=== PATIENT | male | born 1955 | race Caucasian/White ===

== ENCOUNTER → 2016-10-05 | Outpatient (CLI) | payer OTHER ==
[2016-10-05 11:08] LABS: ALT 39 U/L (21-72); AST 21 U/L (17-59); Alkaline Phosphatase 95 U/L (38-126); Anion Gap 11 mmol/L; Blood Urea Nitrogen 21 mg/dL (9-20); Calcium 9.2 mg/dL (8.4-10.2); Carbon Dioxide 26 mmol/L (22-30); Chloride 104 mmol/L (98-107); Cholesterol 167 mg/dL (<200); Glucose 266 mg/dL (74-99); HDL Cholesterol 64 mg/dL (40-60); Non-African American GFR(MDRD) >60 (>60 ml/min/1.73 sqM); Potassium 4.9 mmol/L (3.5-5.1); Sodium 141 mmol/L (137-145); Total Bilirubin 0.7 mg/dL (0.2-1.3); Total Protein 7.9 g/dL (6.3-8.2); Triglycerides 107 mg/dL (<150)
== END | disposition home or self-care (01) ==
LOC: LABWHC1 10:27
PROVIDERS: ATTEND Internal Medicine Endocrinology, Diabetes & Metabolism
DX: E11.65 Type 2 diabetes mellitus with hyperglycemia (principal)
CPT/HCPCS: 36415; 80053; 80061; 82043

== ENCOUNTER → 2017-01-07 | Outpatient (CLI) | payer OTHER ==
--- NOTE | 2017-01-08 12:48 | US ---
EXAMINATION TYPE: US MSK right shoulder DATE OF EXAM: 01/07/2017 1:37 PM COMPARISON: No radiographic correlation available. CLINICAL HISTORY: 61-year-old male strain or muscle/tendon rotator cuff. Patient is a former requirin g strenuous manual labor. Patient reports markedly worsening right shoulder pain over the course of t he last 3 weeks. TECHNIQUE: Multiple sonographic images of the right shoulder are obtained. FINDINGS: Unable to visualize the long head biceps tendon within the bicipital groove. The subscapularis tendon appears somewhat attenuated but some fibers are noted extending to the lesse r tuberosity when the patient performs internal and external rotation. The tendon appears hypoechoic suggesting tendinosis. There is moderate to severe degenerative joint space narrowing with marginal spurring and capsular hy pertrophy at the acromioclavicular joint. Limited evaluation of the supraspinatus tendon due to patient's pain limiting the ability to perform a satisfactory modified Crass position to bring the supraspinatus out from under the acromion. There appears to be considerable volume loss of the mid to posterior supraspinatus tendon with possib le full-thickness tear measuring up to 1.8 cm long and up to 1.4 cm AP dimension. No significant fluid distention of the subacromial/subdeltoid bursa. No significant joint effusion within the posterior recess of the glenoid humeral joint. The posterior labrum appears somewhat blunted and degenerative. IMPRESSION: 1. Unable to visualize the long head biceps tendon within the bicipital groove. Tendon tear should be excluded. MRI to further evaluate. 2. Suboptimal visualization of the supraspinatus tendon due to patient's pain limiting performance of the modified Crass position. There is apparent focal volume loss measuring 1.8 cm long by 1.4 cm AP along the mid to posterior supraspinatus tendon suspicious for full-thickness tear. MRI can corrobora te. 3. Moderate to severe AC joint osteoarthrosis.
== END | disposition home or self-care (01) ==
LOC: RADUSWWP 11:57
PROVIDERS: ATTEND Family Medicine
DX: M19.011 Primary osteoarthritis, right shoulder (principal); S46.011D Strain of muscle(s) and tendon(s) of the rotator cuff of right shoulder, subsequent encounter; X58.XXXD Exposure to other specified factors, subsequent encounter

== ENCOUNTER → 2017-01-25 | Outpatient (CLI) | payer OTHER ==
--- NOTE | 2017-01-25 21:43 | MR ---
EXAMINATION TYPE: MR shoulder RT wo con DATE OF EXAM: 01/25/2017 9:00 AM COMPARISON: Correlation ultrasound 01/07/2017 HISTORY: 61-year-old male with right shoulder pain. TECHNIQUE: Multiplanar, multisequence imaging of the right shoulder is performed without contrast. FINDINGS: There is nonvisualization of the long head biceps tendon suggesting a retracted tear. No dislocated b iceps tendon is seen. The subscapularis tendon is markedly diminutive with some was the fibers. Some of the inferior fibers appear to be intact. There is moderate to severe degenerative joint space narrowing with marginal spurring and capsular hy pertrophy at the acromial clavicular joint. Prominent inferior spurring impinges onto the underlying myotendinous junction of the supraspinatus. There is a full-thickness tear involving nearly all of the supraspinatus tendon measuring 2.3 cm AP d imension with stump retracted by 2.5 cm located below the acromion. There is heterogeneous signal wit hin the infraspinatus tendon without discrete tear. There is fluid within the intervening tendon gap communicating with the glenohumeral joint. There is mild to moderate fatty infiltration of the superior half of the subscapularis muscle belly. Only minimal fatty streaks are seen within the supraspinatus and infraspinatus muscle belly with over all preserved muscle bulk. There is minimal inferior spurring at the glenohumeral joint with mild diffuse cartilage thinning. There is diffuse tear of the superior labrum without paravertebral cyst. The posterior labrum is blun maxwell and degenerative. There is [id number] effusion within the glenohumeral joint. No Hill-Sachs deformity or os acromiale. No suspicious bone marrow replacement. IMPRESSION: 1. Full-thickness tear of nearly the entire supraspinatus tendon (2.3 cm AP dimension) with stump ret racted by 2.5 cm located below the acromion. 2. Most of the subscapularis tendon is also torn with some wispy intact fibers, especially the inferi or fibers. 3. Nonvisualization of the long head biceps tendon. As no dislocated tendon is seen, findings sugges t a retracted tear. 4. Moderate to severe AC joint osteoarthrosis with impingement onto the underlying cuff. 5. Mild to moderate fatty infiltration of the superior half of the subscapularis muscle belly. 6. Early glenohumeral joint osteoarthrosis. The superior labrum is diffusely degenerative and torn.
== END | disposition home or self-care (01) ==
LOC: RADMRIMAIN 08:10
PROVIDERS: ATTEND Nurse Practitioner Family
DX: S46.011D Strain of muscle(s) and tendon(s) of the rotator cuff of right shoulder, subsequent encounter (principal); S43.431A Superior glenoid labrum lesion of right shoulder, initial encounter; M19.011 Primary osteoarthritis, right shoulder; M62.89 Other specified disorders of muscle

== ENCOUNTER 2017-08-30 18:03 | Observation (INO) | payer OTHER ==
[2017-08-30] MEDS ORDERED: SODIUM CHLORIDE 0.9% 1,000 ML IV STA (19:19)
[2017-08-30 19:44] LABS: Basophils % (A) 0 %; CH 28.8; CHCM 33.2; Eosinophils # (A) 0.1 k/uL (0-0.7); Eosinophils % (A) 2 %; HCT 45.6 % (39.0-53.0); HDW 2.33; HGB 14.6 gm/dL (13.0-17.5); Luc # (Auto) 0.18; Luc % (Auto) 3; Lymphocytes # (A) 1.5 k/uL (1.0-4.8); Lymphocytes % (A) 25 %; MCH 27.8 pg (25.0-35.0); MCHC 31.9 g/dL (31.0-37.0); MCV 87.1 fL (80.0-100.0); Mean Platelet Volume 8.2; Monocytes # (A) 0.3 k/uL (0-1.0); Monocytes % (A) 5 %; Neutrophils # (A) 3.8 k/uL (1.3-7.7); Neutrophils % (A) 65 %; RBC 5.23 m/uL (4.30-5.90); RDW 13.1 % (11.5-15.5); WBC 5.9 k/uL (3.8-10.6); WBC (Perox) 5.48
[2017-08-30 19:46] LABS: Partial Thromboplastin Time 24.2 sec (22.0-30.0)
[2017-08-30 19:56] LABS: ALT 41 U/L (21-72); AST 31 U/L (17-59); Alkaline Phosphatase 75 U/L (38-126); Anion Gap 14 mmol/L; Blood Urea Nitrogen 20 mg/dL (9-20); Calcium 9.9 mg/dL (8.4-10.2); Carbon Dioxide 25 mmol/L (22-30); Chloride 102 mmol/L (98-107); Glucose 172 mg/dL (74-99); Non-African American GFR(MDRD) >60 (>60 ml/min/1.73 sqM); Potassium 4.5 mmol/L (3.5-5.1); Sodium 141 mmol/L (137-145); Total Bilirubin 0.5 mg/dL (0.2-1.3); Total Protein 7.9 g/dL (6.3-8.2)
[2017-08-30 20:04] LABS: Creatine Kinase 477 U/L (55-170)
--- NOTE | 2017-08-30 20:07 | CT ---
EXAMINATION: CT brain wo con DATE AND TIME: 08/30/2017 7:53 PM ORDERING PROVIDER: Juanpablo Mak DO CLINICAL INDICATION: syncope TECHNIQUE: Standard departmental protocol. COMPARISON: 08/20/2014 DESCRIPTION: There is a region of encephalomalacia within the posterior right frontal lobe which was seen on the prior study, consistent with remote right MCA territory infarction. This has similar appe arance. The calvarium is intact. There is no intracranial hemorrhage. There is no mass or mass effect. There is no definite new attenuation defect. Remainder of the intra-axial and extra-axial compartment exami nation is unremarkable. The paranasal sinuses, middle ear cavities, and mastoid sinus air cells are c lear. The orbits are intact. IMPRESSION: 1. NO ACUTE PROCESS. 2. Right MCA territory remote infarction.
[2017-08-30 20:16] LABS: Troponin I <0.012 ng/mL (0.000-0.034)
[2017-08-30 20:18] LABS: Creatine Kinase MB 3.4 ng/mL (0.0-2.4)
--- NOTE | 2017-08-30 20:25 | XR ---
EXAMINATION: XR chest 2V DATE AND TIME: 08/30/2017 7:58 PM ORDERING PROVIDER: Juanpablo Mak DO CLINICAL INDICATION: syncope TECHNIQUE: AP and lateral COMPARISON: 07/14/2007 DESCRIPTION: EKG leads are present. The lungs are clear. The pleural spaces are negative. The cardiac silhouette is not enlarged. Mild tortuosity of the thoracic aorta is noted, stable. The skeletal structures are intact without focal findings. The soft tissues are unremarkable. IMPRESSION: NO ACUTE PROCESS.
[2017-08-30] MEDS ORDERED: NALOXONE 0.4 MG/ML 1 ML VIAL IV PRN (20:55)
[2017-08-30] MEDS ORDERED: ONDANSETRON 4 MG/2 ML VIAL IVP PRN (20:55)
[2017-08-30] MEDS ORDERED: Acetaminophen-Codeine 300-30mg TAB PO PRN (20:55)
[2017-08-30] MEDS ORDERED: ACETAMINOPHEN TAB 325 MG TAB PO PRN (20:55)
--- NOTE | 2017-08-30 20:55 | ED ---
Syncope HPI - General Chief Complaint: Syncope Stated Complaint: SYNCOPE Time Seen by Provider: 08/30/17 19:14 Source: patient Mode of arrival: wheelchair Limitations: no limitations - History of Present Illness Initial Comments: This 62-year-old white male presents with a complaint of syncope. He states that it occurred yesterday once and twice today. He fell yesterday and hit his left head. He states that it occurred when he was getting out of his truck on 2 occasions. He is still having a left-sided headache today. He states that he 's been somewhat dizzy recently as well. He denies any other injuries. There is no chest pain, shortness of breath, nausea, vomiting, abdominal pain, leg pain, leg swelling, fever, or chills. He denies any previous known episodes. No other complaints or modifying factors. - Related Data Home Medications Medication Instructions Recorded Confirmed Aspirin 325 mg PO HS 08/20/14 08/30/17 Cholecalciferol [Vitamin D3] 2,000 unit PO DAILY 08/20/14 08/30/17 Pregabalin [Lyrica] 400 mg PO QAM 08/20/14 08/30/17 Tamsulosin [Flomax] 0.4 mg PO DAILY 08/20/14 08/30/17 Ubidecarenone [Co Q-10] 200 mg PO DAILY 08/20/14 08/30/17 Losartan [Cozaar] 25 mg PO HS 10/08/15 08/30/17 Pregabalin [Lyrica] 200 mg PO HS 05/01/16 08/30/17 DULoxetine HCL [Cymbalta] 30 mg PO DAILY 07/14/17 08/30/17 Dapagliflozin Propanediol [Farxiga] 10 mg PO HS 07/14/17 08/30/17 Insulin Aspart [NovoLOG] 10 unit SQ AC-SUPPER 07/14/17 08/30/17 Insulin Glargine,Hum.rec.anlog 50 units SQ HS 07/14/17 08/30/17 [Kain Brady] PARoxetine [Paxil] 20 mg PO DAILY 07/14/17 08/30/17 metFORMIN HCL 1,000 mg PO BID 07/14/17 08/30/17 Simvastatin [Zocor] 20 mg PO HS 08/30/17 08/30/17 glipiZIDE [Glucotrol] 5 mg PO AC-BID 08/30/17 08/30/17 Allergies Allergy/AdvReac Type Severity Reaction Status Date / Time cephalexin monohydrate AdvReac Vomiting Verified 08/30/17 19:15 [From Keflex] venlafaxine [From Effexor] AdvReac Rapid Verified 08/30/17 19:15 Heart Rate Review of Systems ROS Statement: Those systems with pertinent positive or pertinent negative responses have been documented in the HPI. ROS Other: All systems not noted in ROS Statement are negative. Past Medical History Past Medical History: CVA/TIA, Diabetes Mellitus, Hyperlipidemia, Hypertension Additional Past Medical History / Comment(s): bph History of Any Multi-Drug Resistant Organisms: None Reported Past Surgical History: No Surgical Hx Reported Additional Past Surgical History / Comment(s): right endarderectomy Past Psychological History: Anxiety Smoking Status: Never smoker Past Alcohol Use History: Occasional Past Drug Use History: None Reported General Exam - General Exam Comments Initial Comments: GENERAL: The patient is well nourished and well hydrated. VITAL SIGNS: Heart rate, blood pressure, respiratory rate reviewed as recorded in nurse's notes. EYES: Pupils are round and reactive. Extraocular movements are intact. No conjunctival / lid redness or swelling. ENT: No external evidence of injury, swelling, or ecchymosis. Airway is patent. Throat is clear. There is mild tenderness present to the left scalp without hematoma. NECK: Nontender. No swelling or evidence of injury. No subcutaneous emphysema. Trachea is midline. No thyroid mass. HEART: Regular rate and rhythm. Good peripheral pulses. LUNGS/CHEST: Breath sounds clear and equal bilaterally. No rales, rhonchi, or wheezes. No ecchymosis, subcutaneous emphysema, or tenderness. ABDOMEN: Abdomen soft without tenderness. No palpable masses or organomegaly. No peritoneal signs. No abdominal wall swelling or ecchymosis. EXTREMITIES: No extremity tenderness. Normal muscle tone and function. No thoracolumbar tenderness. NEUROLOGIC: Sensation is grossly intact. Cranial nerve exam reveals face is symmetrical, tongue is midline, speech is clear. SKIN: No abrasions or ecchymosis is noted. No induration or masses noted. PSYCHIATRIC: Alert and oriented. Appropriate behavior and judgment. Limitations: no limitations Course Vital Signs 08/30/17 08/30/17 08/30/17 18:34 19:09 19:31 Temperature 98.5 F Pulse Rate 79 71 Pulse Rate [ 65 Sitting] Pulse Rate [ 69 Standing] Pulse Rate [ 70 Supine] Respiratory 18 17 Rate Blood Pressure 118/59 138/74 Blood Pressure 133/71 [Sitting] Blood Pressure 132/69 [Standing] Blood Pressure 134/71 [Supine] O2 Sat by Pulse 97 96 100 Oximetry 08/30/17 20:20 Temperature Pulse Rate 61 Pulse Rate [ Sitting] Pulse Rate [ Standing] Pulse Rate [ Supine] Respiratory 18 Rate Blood Pressure 137/68 Blood Pressure [Sitting] Blood Pressure [Standing] Blood Pressure [Supine] O2 Sat by Pulse 98 Oximetry Medical Decision Making - Medical Decision Making The patient was seen and examined. All diagnostics were reviewed. The patient was placed on a case monitor and no ectopy is identified. The EKG shows a normal sinus rhythm at a rate of 70. There is no acute ST-T wave changes noted. The MO interval is 204, QRS duration is 98, and the QTc interval is 414. The patient had a chest x-ray which is negative. The computed tomography scan of the brain does not show any acute process with evidence of an old CVA. The orthostatic vital signs are negative. The laboratories all essentially within normal limits with slight elevation of the CPK and CK-MB. The exact cause of his syncope is not definitively determined. The possibility of bradycardia or tachyarrhythmia is certainly possible. Is felt as though he benefit from admission to the hospital with further workup. Case is discussed with internal medicine and they're agreeable with admission and would like an echocardiogram, carotid Dopplers, and a cardiology consult. - Lab Data Result diagrams: 08/30/17 19:02 08/30/17 19:02 Lab Results 08/30/17 08/30/17 08/30/17 Range/Units 19:02 19:02 19:02 WBC 5.9 (3.8-10.6) k/uL RBC 5.23 (4.30-5.90) m/uL Hgb 14.6 (13.0-17.5) gm/dL Hct 45.6 (39.0-53.0) % MCV 87.1 (80.0-100.0) fL MCH 27.8 (25.0-35.0) pg MCHC 31.9 (31.0-37.0) g/dL RDW 13.1 (11.5-15.5) % Plt Count 178 (150-450) k/uL Neutrophils % 65 % Lymphocytes % 25 % Monocytes % 5 % Eosinophils % 2 % Basophils % 0 % Neutrophils # 3.8 (1.3-7.7) k/uL Lymphocytes # 1.5 (1.0-4.8) k/uL Monocytes # 0.3 (0-1.0) k/uL Eosinophils # 0.1 (0-0.7) k/uL Basophils # 0.0 (0-0.2) k/uL PT (9.0-12.0) sec INR (<1.2) APTT (22.0-30.0) sec Sodium 141 (137-145) mmol/L Potassium 4.5 (3.5-5.1) mmol/L Chloride 102 (98-107) mmol/L Carbon Dioxide 25 (22-30) mmol/L Anion Gap 14 mmol/L BUN 20 (9-20) mg/dL Creatinine 0.90 (0.66-1.25) mg/dL Est GFR (MDRD) Af Amer >60 (>60 ml/min/1.73 sqM) Est GFR (MDRD) Non-Af >60 (>60 ml/min/1.73 sqM) Glucose 172 H (74-99) mg/dL Calcium 9.9 (8.4-10.2) mg/dL Total Bilirubin 0.5 (0.2-1.3) mg/dL AST 31 (17-59) U/L ALT 41 (21-72) U/L Alkaline Phosphatase 75 (38-126) U/L Total Creatine Kinase 477 H (55-170) U/L CK-MB (CK-2) 3.4 H* (0.0-2.4) ng/mL CK-MB (CK-2) Rel Index 0.7 Troponin I <0.012 (0.000-0.034) ng/mL Total Protein 7.9 (6.3-8.2) g/dL Albumin 4.9 (3.5-5.0) g/dL 08/30/ Range/Units 19:02 WBC (3.8-10.6) k/uL RBC (4.30-5.90) m/uL Hgb (13.0-17.5) gm/dL Hct (39.0-53.0) % MCV (80.0-100.0) fL MCH (25.0-35.0) pg MCHC (31.0-37.0) g/dL RDW (11.5-15.5) % Plt Count (150-450) k/uL Neutrophils % % Lymphocytes % % Monocytes % % Eosinophils % % Basophils % % Neutrophils # (1.3-7.7) k/uL Lymphocytes # (1.0-4.8) k/uL Monocytes # (0-1.0) k/uL Eosinophils # (0-0.7) k/uL Basophils # (0-0.2) k/uL PT 10.0 (9.0-12.0) sec INR 1.0 (<1.2) APTT 24.2 (22.0-30.0) sec Sodium (137-145) mmol/L Potassium (3.5-5.1) mmol/L Chloride (98-107) mmol/L Carbon Dioxide (22-30) mmol/L Anion Gap mmol/L BUN (9-20) mg/dL Creatinine (0.66-1.25) mg/dL Est GFR (MDRD) Af Amer (>60 ml/min/1.73 sqM) Est GFR (MDRD) Non-Af (>60 ml/min/1.73 sqM) Glucose (74-99) mg/dL Calcium (8.4-10.2) mg/dL Total Bilirubin (0.2-1.3) mg/dL AST (17-59) U/L ALT (21-72) U/L Alkaline Phosphatase (38-126) U/L Total Creatine Kinase (55-170) U/L CK-MB (CK-2) (0.0-2.4) ng/mL CK-MB (CK-2) Rel Index Troponin I (0.000-0.034) ng/mL Total Protein (6.3-8.2) g/dL Albumin (3.5-5.0) g/dL Disposition Clinical Impression: Syncopal episodes, Head injury, Fall, Dizziness Disposition: ADMITTED IP TO THIS [facility] Condition: Fair Time of Disposition: 20:53 Decision Date: 08/30/17 Decision Time: 20:53
[2017-08-30] MEDS ORDERED: ATORVASTATIN 10 MG TAB PO SCH (21:00)
[2017-08-30] MEDS ORDERED: LOSARTAN 25 MG TAB PO SCH (21:00)
[2017-08-30] MEDS ORDERED: ASPIRIN 325 MG TAB PO SCH (21:00)
[2017-08-30] MEDS ORDERED: PREGABALIN 100 MG CAP PO SCH (21:30)
[2017-08-30] MEDS ORDERED: INSULIN DETEMIR 100 UNIT/ML 10 ML VIAL SQ SCH (22:00)
[2017-08-30 22:10] LABS: Glucose,Whole Blood 104 mg/dL (75-99)
[2017-08-30] MEDS: metFORMIN 500 MG TAB PO SCH (22:24)
[2017-08-31 00:25] VITALS: RESP 18
[2017-08-31 01:02] LABS: Creatine Kinase 349 U/L (55-170)
[2017-08-31 01:15] LABS: Troponin I <0.012 ng/mL (0.000-0.034)
[2017-08-31 01:17] LABS: Creatine Kinase MB 2.5 ng/mL (0.0-2.4)
[2017-08-31 06:14] LABS: Glucose,Whole Blood 82 mg/dL (75-99)
[2017-08-31 07:08] LABS: Creatine Kinase 305 U/L (55-170)
[2017-08-31 07:22] LABS: Creatine Kinase MB 2.2 ng/mL (0.0-2.4); Troponin I <0.012 ng/mL (0.000-0.034)
[2017-08-31] MEDS: glipiZIDE 5 MG TAB PO SCH ×2 (08:15→17:52)
[2017-08-31] MEDS: metFORMIN 500 MG TAB PO SCH (08:17)
[2017-08-31] MEDS ORDERED: PARoxetine 20 MG TAB PO SCH (09:00)
[2017-08-31] MEDS ORDERED: TAMSULOSIN 0.4 MG CAP.ER.24H PO SCH (09:00)
[2017-08-31] MEDS ORDERED: NON-FORMULARY DRUG (Ubidecarenone [Co Q-10] 200 MG) PO SCH (09:00)
[2017-08-31] MEDS ORDERED: DULoxetine HCL 30 MG CAPSULE.DR PO SCH (09:00)
[2017-08-31] MEDS ORDERED: PREGABALIN 100 MG CAP PO SCH (09:00)
[2017-08-31] MEDS ORDERED: PANTOPRAZOLE 40 MG/10 ML VIAL IV SCH (09:00)
[2017-08-31] MEDS ORDERED: ENOXAPARIN 40 MG/0.4 ML SYRINGE SQ SCH (09:00)
--- NOTE | 2017-08-31 09:26 | CONS ---
CONSULTATION CHIEF COMPLAINT: Syncope. Aldne is a 62-year-old gentleman with history of insulin-requiring diabetes, peripheral neuropathy, hypertension, and dyslipidemia who comes in complaining of having had an episode of syncope. Patient states that for the last several months he has been having episodes of dizziness and near syncope and it usually happens when he gets up from a sitting position. Most recently, it happened when he got out of the car, stood up, he felt dizzy and then passed out. It was moderate to severe intensity, sudden onset with the precipitating factor was standing up and it was relieved on lying down. Since he has had several of these episodes, he came to the hospital and got admitted. Since being admitted to hospital, he has been doing well and has not had any further episodes of dizziness or syncope. He also had episodes of headache. There is no history of focal neurological deficits. There is no history of bladder or bowel incontinence. Since admission, he has had 3 sets of cardiac enzymes that have all been negative. His electrolytes are normal and hemoglobin is normal. EKG shows normal sinus rhythm. Rhythm strip showed that he is in normal sinus rhythm. His blood pressures have been normal on this admission and orthostatics are negative. PAST MEDICAL HISTORY: Significant for insulin-requiring diabetes, hypertension, dyslipidemia, peripheral neuropathy. CURRENT MEDICATIONS: Include Zocor 20 mg daily, Lyrica 200 mg daily, Paxil, Cozaar, insulin, Co-Q10, Glucotrol, Flomax, Cymbalta, aspirin. Allergic to KEFLEX and EFFEXOR. FAMILY HISTORY: Significant for premature coronary artery disease in his mother. SOCIAL HISTORY: Negative for smoking, EtOH abuse, or drug abuse. REVIEW OF SYSTEMS: HEENT is unremarkable. CARDIAC: Negative. RESPIRATORY: Negative. GI: Negative. GENITOURINARY: Negative. ALLERGY: Negative. SKIN: Negative. MUSCULOSKELETAL: Negative. DERM: Negative. CONSTITUTIONAL: Negative. ONCOLOGICAL: Negative. Rest of the system review is not relevant. PHYSICAL EXAM: Comfortable at rest. Vital signs are stable. There is no jugular venous distention. Carotid upstroke is normal. There is no bruit. Chest exam reveals good air entry bilaterally. Heart exam reveals first and second heart sounds. No gallop. No murmur. No rub. Abdomen is soft, nontender. Exam of extremities did not reveal edema. Peripheral pulses are felt. Orthostatics are negative. Labs have been reviewed and are normal. EKG is normal. CT scan of the brain does not reveal any acute pathology. Has a prior small infarction in the middle cerebral artery, which was noted on a prior CAT scan. ASSESSMENT: 1. Syncope, probably vasovagal in origin. The patient's peripheral neuropathy, diabetes, and multiple antihypertensive medications could be worsening the situation. 2. Hypertension. 3. Insulin-requiring diabetes. 4. Peripheral neuropathy. PLAN: I am going to obtain a 2D echo and carotid duplex study on him, ambulate him and hold the Cozaar that he is on this admission and will follow him up as outpatient and if necessary add midodrine to what he is on. I will consider doing a stress test on him on followup. YENNY / MADDIN: [id number] /
--- NOTE | 2017-08-31 11:03 | US ---
EXAMINATION TYPE: US carotid duplex BILAT DATE OF EXAM: 08/31/2017 COMPARISON: NONE CLINICAL HISTORY: syncope, right endartectomy. EXAM MEASUREMENTS: RIGHT: Peak Systolic Velocity (PSV) cm/sec ----- Right CCA: 82.7 ----- Right ICA: 78.7 ----- Right ECA: 111.0 ICA/CCA ratio: 1.0 RIGHT: End Diastole cm/sec ----- Right CCA: 20.2 ----- Right ICA: 27.0 ----- Right ECA: 13.1 LEFT: Peak Systolic Velocity (PSV) cm/sec ----- Left CCA: 77.1 ----- Left ICA: 87.8 ----- Left ECA: 102.5 ICA/CCA ratio: 1.0 LEFT: End Diastole cm/sec ----- Left CCA: 22.8 ----- Left ICA: 25.0 ----- Left ECA: 7.0 VERTEBRALS (direction of flow): Right Vertebral: Antegrade Left Vertebral: Antegrade Rhythm: Normal Patient has thick neck, no significant velocity elevations. IMPRESSION: No evidence for hemodynamically significant stenosis. Criteria for Assigning % of Stenosis / Diameter reduction (Estimation based on the indirect measurements of the internal carotid artery velocities (ICA PSV). 1. Normal (no stenosis)=ICA PSV < 125 cm/s: ratio < 2.0: ICA EDV<40 cm/s. 2. Less than 50% stenosis=ICA PSV < 125 cm/s: ratio < 2.0: ICA EDV<40 cm/s. 3. 50 to 69% stenosis=ICA PSV of 125 to 230 cm/s: ration 2.0 ? 4.0: ICA EDV 40-100 cm/s. 4. Greater than 70% stenosis to near occlusion= ICA PSV > 230 cm/s: ratio > 4.0: ICA EDV > 100 cm/s. 5. Near occlusion= ICA PSV velocities may be low or undetectable: variable ratio and ICA EDV. 6. Total occlusion=unable to detect flow.
[2017-08-31 11:55] LABS: Glucose,Whole Blood 103 mg/dL (75-99)
[2017-08-31] MEDS ORDERED: CHOLECALCIFEROL 1,000 UNIT TAB PO SCH (12:00)
--- NOTE | 2017-08-31 14:25 | ECHOF ---
Referral Reason:syncope MEASUREMENTS -------- HEIGHT: 162.6 cm WEIGHT: 98.4 kg BP: 133/73 RVIDd: 3.4 cm (< 3.3) IVSd: 1.2 cm (0.6 - 1.1) LVIDd: 4.4 cm (3.9 - 5.3) LVPWd: 0.9 cm (0.6 - 1.1) IVSs: 1.5 cm LVIDs: 3.0 cm LVPWs: 1.2 cm LA Diam: 4.3 cm (2.7 - 3.8) LAESV Index (A-L): 25.90 ml/m Ao Diam: 2.9 cm (2.0 - 3.7) AV Cusp: 1.8 cm (1.5 - 2.6) LA Diam: 4.1 cm (2.7 - 3.8) MV EXCURSION: 20.130 mm (> 18.000) MV EF SLOPE: 116 mm/s (70 - 150) EPSS: 0.3 cm MV E Vikas: 0.75 m/s MV DecT: 159 ms MV A Vikas: 0.89 m/s MV E/A Ratio: 0.84 RAP: 5.00 mmHg RVSP: 10.49 mmHg FINDINGS -------- Sinus rhythm. This was a technically adequate study. The left ventricular size is normal. There is mild concentric left ventricular hypertrophy. Overa ll left ventricular systolic function is normal with, an EF between 55 - 60 %. The right ventricle is normal in size. The left atrial size is normal. Normal LA size by volume 22+/-6 ml/m2. The right atrial size is normal. There is mild aortic valve sclerosis. Mild mitral annular calcification present. Mild mitral regurgitation is present. Mild tricuspid regurgitation present. There is no evidence of pulmonary hypertension. The right v entricular systolic pressure, as measured by Doppler, is 10.49mmHg. There is no pulmonic regurgitation present. The aortic root size is normal. There is no pericardial effusion. CONCLUSIONS -------- 1. The left ventricular size is normal. 2. There is mild concentric left ventricular hypertrophy. 3. There is mild aortic valve sclerosis. 4. Mild mitral annular calcification present. 5. Mild mitral regurgitation is present. 6. Mild tricuspid regurgitation present. 7. There is no evidence of pulmonary hypertension. 8. The right ventricular systolic pressure, as measured by Doppler, is 10.49mmHg. 9. There is no pulmonic regurgitation present. 10. The aortic root size is normal. 11. There is no pericardial effusion. CLUTCH OPERATOR: Ann Bowie RDCS
[2017-08-31 16:18] LABS: Glucose,Whole Blood 166 mg/dL (75-99)
[2017-08-31 17:21] VITALS: BP 124/65; PULSE 81; TEMP 98.1
[2017-08-31] MEDS ORDERED: INSULIN ASPART 100 UNIT/ML 1 ML 10 ML VIAL SQ SCH (17:30)
[2017-08-31] MEDS ORDERED: Dapagliflozin Propanediol [Farxiga] 10 MG PO SCH (21:00)
--- NOTE | 2017-09-01 00:17 | P.HPIM ---
History of Present Illness H&P Date: 08/31/17 Chief Complaint: Syncope This 62-year-old white male a known history of hypertension, BPH and multiple medical problems presents with a complaint of syncope. He states that it occurred yesterday once and twice today. He fell yesterday and hit his left head. He states that it occurred when he was getting out of his truck on 2 occasions. He states that he is having dizzy spells for the past 2 years but never lost his consciousness. He states that he's been somewhat dizzy recently as well. He denies any other injuries. There is no chest pain, shortness of breath, nausea, vomiting, abdominal pain, leg pain, leg swelling, fever, or chills. He denies any previous known episodes. No other complaints or modifying factors. 2-D echo showed normal ejection fraction and mild aortic sclerosis Carotid duplex showed no significant hemodynamic abnormality. CT head showed right MCA territory remote infarction. No acute process Chest x-ray showed no acute process EKG showed normal sinus rhythm troponin 3 negative Patient had history of right carotid endarterectomy and is on follow with Dr. Parks as an outpatient. Review of Systems Constitutional: Patient denies any fever or chills . No generalized weakness or weight loss. Abdomen: Patient denied nausea vomiting and diarrhea and abdominal pain. Cardiovascular: Patient denies any chest pain or short of breath no palpitations. Respiratory: patient denied any cough is from production. No shortness of breath Neurologic: Patient denied any numbness or tingling headache. Musculoskeletal: Patient denies any complaints of joint swelling or deformity. Skin: Negative Psychiatric: Negative Endocrine: No heat or cold intolerance. No recent weight gain. Genitourinary: No dysuria or hematuria. All other 14 point ROS negative except the above Past Medical History Past Medical History: CVA/TIA, Diabetes Mellitus, Hyperlipidemia, Hypertension, Prostate Disorder Additional Past Medical History / Comment(s): bph History of Any Multi-Drug Resistant Organisms: None Reported Past Surgical History: No Surgical Hx Reported Additional Past Surgical History / Comment(s): right endarderectomy Past Anesthesia/Blood Transfusion Reactions: No Reported Reaction Past Psychological History: Anxiety, Depression Smoking Status: Never smoker Past Alcohol Use History: Occasional Past Drug Use History: None Reported - Past Family History Father Family Medical History: Cancer Mother History Unknown: Yes Family Medical History: Congestive Heart Failure (CHF), COPD, Coronary Artery Disease (CAD), Diabetes Mellitus, Myocardial Infarction ([place]) Medications and Allergies Home Medications Medication Instructions Recorded Confirmed Type Aspirin 325 mg PO HS 08/20/14 08/30/17 History Cholecalciferol [Vitamin D3] 2,000 unit PO DAILY 08/20/14 08/30/17 History Pregabalin [Lyrica] 400 mg PO QAM 08/20/14 08/30/17 History Tamsulosin [Flomax] 0.4 mg PO DAILY 08/20/14 08/30/17 History Ubidecarenone [Co Q-10] 200 mg PO DAILY 08/20/14 08/30/17 History Pregabalin [Lyrica] 200 mg PO HS 05/01/16 08/30/17 History DULoxetine HCL [Cymbalta] 30 mg PO DAILY 07/14/17 08/30/17 History Dapagliflozin Propanediol [Farxiga] 10 mg PO HS 07/14/17 08/30/17 History Insulin Aspart [NovoLOG 10 unit SQ AC-SUPPER 07/14/17 08/30/17 History (formulary)] Insulin Glargine,Hum.rec.anlog 50 units SQ HS 07/14/17 08/30/17 History [Touarnol Solostar] PARoxetine [Paxil] 20 mg PO DAILY 07/14/17 08/30/17 History metFORMIN HCL 1,000 mg PO BID 07/14/17 08/30/17 History Simvastatin [Zocor] 20 mg PO HS 08/30/17 08/30/17 History glipiZIDE [Glucotrol] 5 mg PO AC-BID 08/30/17 08/30/17 History Allergies Allergy/AdvReac Type Severity Reaction Status Date / Time cephalexin monohydrate AdvReac Vomiting Verified 08/30/17 19:15 [From Keflex] venlafaxine [From Effexor] AdvReac Rapid Verified 08/30/17 19:15 Heart Rate Physical Exam Vitals: Vital Signs Temp Pulse Pulse Pulse Pulse Resp BP 08/31/17 08:00 98.1 F 75 18 08/31/17 04:00 97.8 F 65 18 08/31/17 00:00 97.8 F 61 18 08/30/17 21:19 97.8 F 61 16 08/30/17 20:20 61 18 137/68 08/30/17 19:31 65 69 70 08/30/17 19:09 71 17 138/74 08/30/17 18:34 98.5 F 79 18 118/59 BP BP BP Pulse Ox 08/31/17 08:00 116/68 95 08/31/17 04:00 133/73 08/31/17 00:00 117/71 98 08/30/17 21:19 117/71 98 08/30/17 20:20 98 08/30/17 19:31 133/71 132/69 134/71 100 08/30/17 19:09 96 08/30/17 18:34 97 Intake and Output 08/30/17 08/31/17 08/31/17 22:59 06:59 14:59 Other: Voiding Method Urinal # Voids 1 Weight 97.976 kg 98.7 kg PHYSICAL EXAMINATION: Patient is lying in the bed comfortably, no acute distress, awake alert and oriented.. HEENT: Normocephalic. Neck is supple. Pupils reactive. Nostrils clear. Oral cavity is moist. Ears reveal no drainage. Neck reveals no JVD, carotid bruits, or thyromegaly. CHEST EXAMINATION: Trachea is central. Symmetrical expansion. Lung rod clear to auscultation and percussion. CARDIAC: Normal S1, S2 with no gallops. No murmurs ABDOMEN: Soft. Bowel sounds normal. No organomegaly. No abdominal bruits. Extremities: reveal no edema. No clubbing or cyanosis Neurologically awake, alert, oriented x3 with well-coordinated movements. No focal deficits noted Skin: No rash or skin lesions. Psychiatric: Operative. Nonsuicidal Musculoskeletal: No joint swelling or deformity. Normal range of motion. Results CBC & Chem 7: 08/30/17 19:02 08/30/17 19:02 Labs: Abnormal Lab Results - Last 24 Hours (Table) 08/30/17 08/30/17 08/30/17 Range/Units 19:02 19:02 22:07 Glucose 172 H (74-99) mg/dL POC Glucose (mg/dL) 104 H (75-99) mg/dL Total Creatine Kinase 477 H (55-170) U/L CK-MB (CK-2) 3.4 H* (0.0-2.4) ng/mL 08/31/17 08/31/17 08/31/17 Range/Units 00:19 06:25 11:41 Glucose (74-99) mg/dL POC Glucose (mg/dL) 103 H (75-99) mg/dL Total Creatine Kinase 349 H 305 H (55-170) U/L CK-MB (CK-2) 2.5 H* (0.0-2.4) ng/mL Thrombosis Risk Factor Assmnt - DVT/VTE Prophylaxis DVT/VTE Prophylaxis: Pharmacologic Prophylaxis ordered - Choose All That Apply Any of the Below Risk Factors Present?: No Other Risk Factors: Yes Each Risk Factor Represents 2 Points: Age 61-74 years Thrombosis Risk Factor Assessment Total Risk Factor Score: 2 Thrombosis Risk Factor Assessment Level: Low Risk Assessment and Plan Assessment: #1 syncope likely due to orthostatic versus vasovagal syncope #2 history of dizziness #3 history of right carotid endarterectomy #4 BPH #5 hypertension #6 anxiety and depression #7 history of remote CVA involving the right MCA territory Plan: Patient will be continued on telemetry monitoring. 2-D echo and carotid duplex was ordered cardiology as the patient. Patient has multiple reasons for orthostatic including diabetic peripheral neuropathy along with antidepressant and Flomax. Patient was unable to tolerate stopping Flomax previously and he developed urinary symptoms. Cozaar will be held at this time and follow with primary care physician and cardiology as an outpatient. Further ablation based on the clinical course. Time with Patient: Greater than 30
--- NOTE | 2017-09-01 00:20 | P.DS ---
Providers Date of admission: 08/30/17 20:54 Expected date of discharge: 08/31/17 Attending physician: Nai Guerra Consults: 08/30/17 20:56 Consult Physician Routine Consulting Provider: Naina Mercado Consult Reason/Comments: syncope Do you want consulting provider notified?: Yes Primary care physician: Lenka Trever [facility] Hospital Course: Discharge diagnosis #1 syncope likely due to orthostatic versus vasovagal syncope #2 history of dizziness #3 history of right carotid endarterectomy #4 BPH #5 hypertension #6 anxiety and depression #7 history of remote CVA involving the right MCA territory Hospital course This 62-year-old white male a known history of hypertension, BPH and multiple medical problems presents with a complaint of syncope. He states that it occurred yesterday once and twice today. He fell yesterday and hit his left head. He states that it occurred when he was getting out of his truck on 2 occasions. He states that he is having dizzy spells for the past 2 years but never lost his consciousness. He states that he's been somewhat dizzy recently as well. He denies any other injuries. There is no chest pain, shortness of breath, nausea, vomiting, abdominal pain, leg pain, leg swelling, fever, or chills. He denies any previous known episodes. No other complaints or modifying factors. 2-D echo showed normal ejection fraction and mild aortic sclerosis Carotid duplex showed no significant hemodynamic abnormality. CT head showed right MCA territory remote infarction. No acute process Chest x-ray showed no acute process EKG showed normal sinus rhythm troponin 3 negative Patient had history of right carotid endarterectomy and is on follow with Dr. Parks as an outpatient. Patient was continued on telemetry monitoring. 2-D echo and carotid duplex was ordered. Showed no acute abnormality. Normal ejection fraction. cardiology has seen the patient. Patient has multiple reasons for orthostatic including diabetic peripheral neuropathy along with antidepressant and Flomax. Patient was unable to tolerate stopping Flomax previously and he developed urinary symptoms. Cozaar will be held at this time and follow with primary care physician and cardiology as an outpatient. Discharge physical examination was done Patient Condition at Discharge: Fair Plan - Discharge Summary Discharge Rx Participant: No New Discharge Prescriptions: Continue Aspirin 325 mg PO HS Ubidecarenone [Co Q-10] 200 mg PO DAILY Pregabalin [Lyrica] 400 mg PO QAM Tamsulosin [Flomax] 0.4 mg PO DAILY Cholecalciferol [Vitamin D3] 2,000 unit PO DAILY Pregabalin [Lyrica] 200 mg PO HS metFORMIN HCL 1,000 mg PO BID PARoxetine [Paxil] 20 mg PO DAILY Dapagliflozin Propanediol [Farxiga] 10 mg PO HS Insulin Aspart [NovoLOG (formulary)] 10 unit SQ AC-SUPPER DULoxetine HCL [Cymbalta] 30 mg PO DAILY Insulin Glargine,Hum.rec.anlog [Toujeo Solostar] 50 units SQ HS Simvastatin [Zocor] 20 mg PO HS glipiZIDE [Glucotrol] 5 mg PO AC-BID Discontinued Losartan [Cozaar] 25 mg PO HS Discharge Medication List Aspirin 325 mg PO HS 08/20/14 [History] Cholecalciferol [Vitamin D3] 2,000 unit PO DAILY 08/20/14 [History] Pregabalin [Lyrica] 400 mg PO QAM 08/20/14 [History] Tamsulosin [Flomax] 0.4 mg PO DAILY 08/20/14 [History] Ubidecarenone [Co Q-10] 200 mg PO DAILY 08/20/14 [History] Pregabalin [Lyrica] 200 mg PO HS 05/01/16 [History] DULoxetine HCL [Cymbalta] 30 mg PO DAILY 07/14/17 [History] Dapagliflozin Propanediol [Farxiga] 10 mg PO HS 07/14/17 [History] Insulin Aspart [NovoLOG (formulary)] 10 unit SQ AC-SUPPER 07/14/17 [History] Insulin Glargine,Hum.rec.anlog [Toujeo Solostar] 50 units SQ HS 07/14/17 [ History] PARoxetine [Paxil] 20 mg PO DAILY 07/14/17 [History] metFORMIN HCL 1,000 mg PO BID 07/14/17 [History] Simvastatin [Zocor] 20 mg PO HS 08/30/17 [History] glipiZIDE [Glucotrol] 5 mg PO AC-BID 08/30/17 [History] Discharge Disposition: HOME SELF-CARE
[2017-09-01] MEDS ORDERED: PANTOPRAZOLE 40 MG TABLET PO SCH (07:30)
== END 2017-08-31 18:50 | disposition home or self-care (01) ==
LOC: EC 18:03 → 6SEL 20:54
PROVIDERS: ADMIT Hospitalist; ATTEND Hospitalist
DX: R55 Syncope and collapse (principal); R42 Dizziness and giddiness; Z79.899 Other long term (current) drug therapy; Z79.4 Long term (current) use of insulin; Z79.82 Long term (current) use of aspirin; Z88.1 Allergy status to other antibiotic agents; Z88.8 Allergy status to other drugs, medicaments and biological substances; Z86.73 Personal history of transient ischemic attack (TIA), and cerebral infarction without residual deficits; I10 Essential (primary) hypertension; E78.5 Hyperlipidemia, unspecified; E11.42 Type 2 diabetes mellitus with diabetic polyneuropathy; N40.0 Benign prostatic hyperplasia without lower urinary tract symptoms; F41.9 Anxiety disorder, unspecified; Z91.81 History of falling; Z82.49 Family history of ischemic heart disease and other diseases of the circulatory system; F32.9 Major depressive disorder, single episode, unspecified
CPT/HCPCS: 96372; 96374; 96361; 99285; 36415; 93005; 93306; 80053; 82550 ×2; 82553 ×2; 84484 ×2; 85025; 85610; 85730; 71020; 93880; 70450; G0378 ×2; J1650; C9113

== ENCOUNTER → 2017-12-14 | Outpatient (CLI) | payer BC ==
--- NOTE | 2017-12-14 16:26 | CONS ---
CONSULTATION REASON FOR CONSULTATION: Obstructive sleep apnea. This is a 62-year-old male patient, who is having episodes of passing out. The patient is currently being seen by Neurology. He has had multiple CVAs in the past. He has some residual left-sided weakness. He has undergone a previous carotid endarterectomy on the right. He is also having some orthostatic hypotension and dizziness along with his episodes of passing out. No seizure activity. It is not clear whether these episodes are sleep attacks or true passing out. The patient is usually able to arouse from these events without any major difficulties or any postictal state. He has been diagnosed having obstructive sleep apnea many years back for a home sleep study. However he never followed up on a treatment on a regular basis and he was sent over to my clinic for reevaluation. He snores and has witnessed apneas as noted by his . His sleep is fragmented and he has chronic tiredness and fatigue and sleepiness during the day. Weight has been stable. His current BMI is 31.4. He wakes up frequently in middle of the night for urination. He has obvious nocturia. There is also severe peripheral neuropathy and he denies having any restlessness in his lower extremities. He goes to bed around 10:00 pm, wakes up 7:00 am in the morning. His current Riverview Score is at 16. PAST MEDICAL HISTORY: 1. Recurrent CVA. The patient has some residual left-sided weakness. 2. BPH. 3. Diabetes mellitus. 4. Hyperlipidemia. 5. Peripheral neuropathy. 6. Obstructive sleep apnea. SURGICAL HISTORY: Includes right carotid endarterectomy. ALLERGIES: Not known. OUTPATIENT MEDICATION LIST: Includes vitamin D3 2000 units daily, Lyrica 400 mg in the morning and 200 at nighttime, tamsulosin 0.4 daily, Cymbalta 30 a day. Paxil 20 daily, metformin 1000 in the morning and 1000 at night. Farxiga 10 daily, Zocor 20 daily, losartan 25 a day. Aspirin 325 daily, and Toujeo insulin 15 units daily. SOCIAL HISTORY: Nonsmoker. No history of alcohol. No history of IV drugs. FAMILY HISTORY: No reported history of obstructive sleep apnea. 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 REVIEW OF SYSTEMS: 12-point review of system was done. No fever chills or night sweats. No recent weight loss or weight gain. He has chronic fatigue and sleepiness. He has no insomnia. Occasionally wakes up gasping for air and choking. No sleepwalking. No anxiety or panic attacks. No palpitation. No heartburn. No nocturnal shortness of breath or chest pain. He has some issues with concentration and memory and he has been feeling tired all the time. He has issues with sexual dysfunction and peripheral neuropathy especially in his lower extremities. He prefers to sleep on his sides. His weight has been stable. No sleep paralysis. No hallucinations. No cataplexy. No episodes of falling asleep while driving. He has never been involved in a motor vehicle accidents because of feeling drowsy or sleepy. PHYSICAL EXAMINATION: BP is 156/86, pulse 71, respirations 16, temperature 97.8. Saturation 98% on room air. Height is 5 feet, 10 inches, weight is 219, neck size 17 and a quarter, Riverview score 16, BMI 31.4. General appearance is calm, comfortable, no acute distress. Head is atraumatic, normocephalic. NECK: Supple. Mallampati class IV. There is no goiter or neck masses. LUNGS: Clear to auscultation. HEART: Sounds regular rhythm. Normal S1, S2. No S3, S4. No murmurs. ABDOMEN: Soft, nontender. No organomegaly. EXTREMITIES: No edema. No cyanosis or clubbing. Neurologically the patient is alert and oriented times three. No focal neurological deficits. Psychiatrically, the patient has no reported history of anxiety or depression. SKIN: Negative for any wounds or ulceration. IMPRESSION: 1. Sleep attacks versus syncope. Currently under investigation. 2. History of obstructive sleep apnea. The patient has become more symptomatic over the years and he has been describing loud snoring, apneas and chronic hypersomnia with an Riverview score of 15. The patient will need further investigation. 3. Previous failed CPAP therapy. The patient was given a brief trial of CPAP more than 8 years ago which he failed to undertake. 4. Cerebrovascular accident with left-sided weakness. 5. Benign prostatic hypertrophy. 6. Diabetes. 7. Hyperlipidemia. 8. Peripheral neuropathy. PLAN: 1. Encourage weight loss. 2. We will need a screening polysomnogram to assess the presence and severity of suspected sleep apnea and treat accordingly. 3. Implement good sleep hygiene measures. 4. Avoid driving especially when feeling drowsy or sleepy. As the patient it at an increased risk of falling asleep or even passing out while doing this type of activity. 5. We will review the sleep study once complete and make further recommendations accordingly. MMODL / IJN: [id number] /
== END | disposition home or self-care (01) ==
LOC: SLEEP 13:39
PROVIDERS: ATTEND Internal Medicine Critical Care Medicine
DX: G47.33 Obstructive sleep apnea (adult) (pediatric) (principal); R53.1 Weakness; N40.0 Benign prostatic hyperplasia without lower urinary tract symptoms; G62.9 Polyneuropathy, unspecified; E11.9 Type 2 diabetes mellitus without complications; E78.5 Hyperlipidemia, unspecified; I95.1 Orthostatic hypotension; Z98.890 Other specified postprocedural states; Z86.73 Personal history of transient ischemic attack (TIA), and cerebral infarction without residual deficits
CPT/HCPCS: 99211

== ENCOUNTER → 2018-06-14 | Outpatient (CLI) | payer BC ==
[2018-06-14 11:30] LABS: ALT 40 U/L (21-72); AST 23 U/L (17-59); Albumin 4.3 g/dL (3.5-5.0); Alkaline Phosphatase 64 U/L (38-126); Anion Gap 9 mmol/L; Blood Urea Nitrogen 21 mg/dL (9-20); Calcium 9.4 mg/dL (8.4-10.2); Carbon Dioxide 26 mmol/L (22-30); Chloride 106 mmol/L (98-107); Cholesterol 173 mg/dL (<200); Glucose 177 mg/dL (74-99); HDL Cholesterol 45 mg/dL (40-60); LDL Cholesterol,Calculated 102 mg/dL (0-99); Potassium 4.4 mmol/L (3.5-5.1); Sodium 141 mmol/L (137-145); Total Bilirubin 0.4 mg/dL (0.2-1.3); Total Protein 7.3 g/dL (6.3-8.2); Triglycerides 131 mg/dL (<150)
[2018-06-14 20:28] LABS: Hemoglobin A1C 10.5 % (4.0-6.0)
== END | disposition home or self-care (01) ==
LOC: LABWHC1 09:46
PROVIDERS: ATTEND Internal Medicine Endocrinology, Diabetes & Metabolism
DX: E11.65 Type 2 diabetes mellitus with hyperglycemia (principal)
CPT/HCPCS: 36415; 80053; 80061; 82043; 82570; 83036

== ENCOUNTER → 2019-10-16 | Outpatient (CLI) | payer MEDICARE, OTHER ==
--- NOTE | 2019-10-16 12:44 | XR ---
EXAMINATION TYPE: XR Hip Bilateral and AP pelvis DATE OF EXAM: 10/16/2019 COMPARISON: CT abdomen pelvis dated 07/14/2017 HISTORY: Pelvic and left hip pain TECHNIQUE: A single AP view of the pelvis is obtained. Two views of the bilateral hips were obtained. FINDINGS: There is no acute fracture/dislocation evident in the pelvis. The hip and sacroiliac join ts appear symmetric. There is cephalad joint space narrowing, left greater than right as well as eloise tabular roof sclerosis, left greater than right. Very small subchondral cysts are seen of the acetabu lar roofs. The overlying soft tissue appears unremarkable. Two views of both hips show no acute fracture or dislocation. No focal lytic or sclerotic lesion see n in either proximal femur. The overlying soft tissue is unremarkable. Moderate degenerative change of the lumbosacral junction is also seen. IMPRESSION: 1. No acute fracture or dislocation in the pelvis or either hip. 2. Moderate bilateral femoral acetabular arthropathy, left greater than right. 3. Moderate degenerative changes of the lumbosacral junction.
== END | disposition home or self-care (01) ==
LOC: RADXRMAIN 12:24
PROVIDERS: ATTEND Family Medicine
DX: M16.11 Unilateral primary osteoarthritis, right hip (principal); M16.12 Unilateral primary osteoarthritis, left hip; M47.817 Spondylosis without myelopathy or radiculopathy, lumbosacral region
CPT/HCPCS: 73521

== ENCOUNTER → 2020-06-25 | Outpatient (CLI) | payer MEDICARE, OTHER ==
[2020-06-25 22:16] LABS: Hemoglobin A1C 14.3 % (4.0-6.0)
[2020-06-25 22:26] LABS: African American GFR (CKD) 91.1 (60.0-200.0); Albumin 4.5 g/dL (3.80-4.90); Albumin/Globulin Ratio 1.96 (1.60-3.17); Anion Gap 13.8 mmol/L (4.00-12.00); Calcium 9.3 mg/dL (8.7-10.3); Carbon Dioxide 21.2 mmol/L (21.6-31.8); Chol/HDL Ratio 4.3; Globulin 2.3 g/dL (1.6-3.3); LDL Cholesterol,Calculated 109.6 mg/dL (0.0-131.0); Non-African American GFR(CKD) 78.6 (60.0-200.0); Potassium 4.6 mmol/L (3.5-5.5); Total Bilirubin 0.4 mg/dL (0.2-1.2); Total Protein 6.8 g/dL (6.2-8.2); VLDL Calculation 32.4 mg/dL (5.00-40.00)
[2020-06-26 05:08] LABS: Urine Creatinine 67.1 mg/dL
== END | disposition home or self-care (01) ==
LOC: LABWHC1 13:34
PROVIDERS: ATTEND Internal Medicine Endocrinology, Diabetes & Metabolism
DX: E11.65 Type 2 diabetes mellitus with hyperglycemia (principal)
CPT/HCPCS: 36415; 80053; 80061; 82043; 82570; 83036; 84443

== ENCOUNTER 2021-08-07 12:12 | Inpatient (IN) | payer MEDICARE, OTHER ==
--- NOTE | 2021-08-07 12:43 | ED ---
General Adult HPI - General Chief complaint: Dizziness Stated complaint: Dizzy; hx of stroke Time Seen by Provider: 08/07/21 12:34 Source: patient, family Mode of arrival: ambulatory Limitations: no limitations - History of Present Illness Initial comments: Patient presents to the ED with his and son for evaluation. Patient states that he has had decreased energy, fatigue and lightheadedness for the past 3 days or so. Patient states that his symptoms have become worse today. Patient's states that the patient's blood glucose levels have been elevated since yesterday. states that the patient's blood glucose reading was 530 last night and 334 this morning. Patient states that he has been taking his insulin as prescribed, and he denies any recent change in his medications/doses. Patient admits to having polyuria over the past several days. also states that he suffered a stroke many years ago, and she states that he has residual left-sided (arm and leg) weakness and paresthesias ever since his stroke. Patient denies any change in these symptoms, however, he states that he has had left-sided facial "numbness" since he awoke this morning. Patient states that he went to bed at about 8:30 or 9 PM last night without any left facial numbness. Patient denies having any pain, fever or chills, headache, visual changes, otalgia, neck/back/extremity pain, chest pain or pressure, dyspnea, cough or cold symptoms, palpitations, syncope, abdominal pain, vomiting or diarrhea, bloody or melanotic stool, dysuria or hematuria, or any other symptoms or complaints. - Related Data Home Medications Medication Instructions Recorded Confirmed Aspirin 325 mg PO HS 08/20/14 08/07/21 Cholecalciferol [Vitamin D3 (25 2,000 unit PO DAILY 08/20/14 08/07/21 Mcg = 1000 Iu)] Pregabalin [Lyrica] 400 mg PO DAILY 08/20/14 08/07/21 Tamsulosin [Flomax] 0.4 mg PO HS 08/20/14 08/07/21 Ubidecarenone [Co Q-10] 200 mg PO DAILY 08/20/14 08/07/21 Pregabalin [Lyrica] 200 mg PO HS 05/01/16 08/07/21 DULoxetine HCL [Cymbalta] 30 mg PO BID 07/14/17 08/07/21 INSULIN ASPART (NovoLOG) [NovoLOG See Protocol SQ AC-TID PRN 07/14/17 08/07/21 (formulary)] Insulin Glargine,Hum.rec.anlog 40 units SQ HS 07/14/17 08/07/21 [Touarnol Solostar] metFORMIN HCL [Glucophage] 1,000 mg PO BID 07/14/17 08/07/21 Losartan Potassium [Cozaar] 25 mg PO HS 08/07/21 08/07/21 PARoxetine HCL [Paxil] 30 mg PO DAILY 08/07/21 08/07/21 Simvastatin [Zocor] 40 mg PO HS 08/07/21 08/07/21 Allergies Allergy/AdvReac Type Severity Reaction Status Date / Time cephalexin monohydrate AdvReac Vomiting Verified 08/07/21 14:17 [From Keflex] venlafaxine [From Effexor] AdvReac Rapid Verified 08/07/21 14:17 Heart Rate Review of Systems ROS Statement: Those systems with pertinent positive or pertinent negative responses have been documented in the HPI. ROS Other: All systems not noted in ROS Statement are negative. Past Medical History Past Medical History: CVA/TIA, Diabetes Mellitus, Hyperlipidemia, Hypertension, Prostate Disorder Additional Past Medical History / Comment(s): bph History of Any Multi-Drug Resistant Organisms: None Reported Past Surgical History: No Surgical Hx Reported Additional Past Surgical History / Comment(s): right endarderectomy Past Anesthesia/Blood Transfusion Reactions: No Reported Reaction Past Psychological History: Anxiety, Depression Smoking Status: Never smoker Past Alcohol Use History: Occasional Past Drug Use History: None Reported - Past Family History Father Family Medical History: Cancer Mother History Unknown: Yes Family Medical History: Congestive Heart Failure (CHF), COPD, Coronary Artery Disease (CAD), Diabetes Mellitus, Myocardial Infarction (NE) General Exam Limitations: no limitations General appearance: alert, in no apparent distress Head exam: Present: atraumatic, normocephalic Eye exam: Present: normal appearance, PERRL, EOMI ENT exam: Present: mucous membranes dry Neck exam: Present: other (Trachea is in midline). Absent: tenderness, meningismus Respiratory exam: Present: normal lung sounds bilaterally. Absent: respiratory distress, wheezes, rales, rhonchi, stridor Cardiovascular Exam: Present: normal rhythm, tachycardia, normal heart sounds, other (Normal radial pulses bilaterally) GI/Abdominal exam: Present: soft. Absent: distended, tenderness, guarding Extremities exam: Absent: tenderness, pedal edema, calf tenderness Back exam: Absent: CVA tenderness (R), CVA tenderness (L) Neurological exam: Present: alert, oriented X3, other (Decreased sensation to light touch along left side of face in V2 distribution; decreased sensation to light touch along the left arm and left leg (unchanged per patient); 4/5 strength in left lower extremity (unchanged per patient); all other extremities are 5/5 in strength) Psychiatric exam: Present: normal affect, normal mood Skin exam: Present: warm, dry, intact, normal color Course Vital Signs 08/07/21 08/07/21 08/07/21 12:21 13:30 13:45 Temperature 98.9 F Pulse Rate 117 H 105 H 108 H Respiratory 18 20 18 Rate Blood Pressure 154/69 143/81 148/82 O2 Sat by Pulse 97 95 95 Oximetry 08/07/21 14:00 Temperature Pulse Rate 105 H Respiratory 18 Rate Blood Pressure 144/80 O2 Sat by Pulse 96 Oximetry - Reevaluation(s) Reevaluation #1: 08/07/21 14:11 Case, H&P and test results were discussed with Dr. Guerra, and he has accepted hospital floor admission. Dr. Guerra has seen the patient in the ED, and he requests that a code stroke be called on the patient despite the patient reporting that his left arm and left leg symptoms are chronic, and his left facial numbness onset time is unknown (patient reports last being without left facial numbness at about 8:30 or 9 PM last night when he went to sleep). Code stroke has been called per Dr. Guerra's request. Dr. Guerra also recommends starting the patient on an IV insulin drip for treatment of mild DKA. He has no further recommendations at this time. 08/07/21 14:24 Case, H&P, test results and my discussion with Dr. Guerra as above were discussed with Sara (neurointerventionalist). He states that the patient's symptoms are likely secondary to his DKA, but he states that he has not opposed to obtaining CT angiograms at this time. He has no further recommendations at this time. 08/07/21 16:14 Patient and family are aware of the patient's test results, and they all agree with hospital admission at this time. Patient denies development of any new symptoms while in the ED. Patient remains alert and breathing comfortable. Patient has an unchanged neurological exam. EKG Findings - EKG Comments: EKG Findings:: Sinus tachycardia, ventricular rate 113 bpm, no ectopy, normal TN and QRS intervals, normal QT interval, left anterior fascicular block, no ST or T-wave abnormality, normal axis Medical Decision Making - Medical Decision Making I suspect that the patient's symptoms are likely secondary to hyperglycemia and mild DKA, however, given the patient's history of CVA and left-sided facial paresthesias, will also admit the patient to the hospital for neurological evaluation in addition to treatment of his hyperglycemia/mild DKA. Patient's CT angiogram head/neck is unremarkable. Dr. Guerra has accepted hospital admission. Patient was started on an IV insulin drip in the ED. Patient was also treated with IV fluids and oral aspirin in the ED. - Lab Data Result diagrams: 08/07/21 13:08 08/07/21 13:08 Lab Results 08/07/21 08/07/21 08/07/21 Range/Units 13:08 13:08 13:08 WBC 10.2 (3.8-10.6) k/uL RBC 5.10 (4.30-5.90) m/uL Hgb 14.5 (13.0-17.5) gm/dL Hct 44.8 (39.0-53.0) % MCV 87.9 (80.0-100.0) fL MCH 28.5 (25.0-35.0) pg MCHC 32.4 (31.0-37.0) g/dL RDW 12.8 (11.5-15.5) % Plt Count 223 (150-450) k/uL MPV 8.7 Neutrophils % 82 % Lymphocytes % 8 % Monocytes % 6 % Eosinophils % 0 % Basophils % 0 % Neutrophils # 8.4 H (1.3-7.7) k/uL Lymphocytes # 0.8 L (1.0-4.8) k/uL Monocytes # 0.7 (0-1.0) k/uL Eosinophils # 0.0 (0-0.7) k/uL Basophils # 0.0 (0-0.2) k/uL PT 9.6 (9.0-12.0) sec INR 0.9 (<1.2) APTT 23.6 (22.0-30.0) sec VBG pH (7.31-7.41) VBG pCO2 (37-51) mmHg VBG HCO3 (24-28) mmol/L Sodium 136 L (137-145) mmol/L Potassium 4.6 (3.5-5.1) mmol/L Chloride 104 (98-107) mmol/L Carbon Dioxide 14 L (22-30) mmol/L Anion Gap 18 mmol/L BUN 17 (9-20) mg/dL Creatinine 0.92 (0.66-1.25) mg/dL Est GFR (CKD-EPI)AfAm >90 (>60 ml/min/1.73 sqM) Est GFR (CKD-EPI)NonAf 86 (>60 ml/min/1.73 sqM) Glucose 296 H (74-99) mg/dL Calcium 10.2 (8.4-10.2) mg/dL Magnesium 1.9 (1.6-2.3) mg/dL Total Bilirubin 0.7 (0.2-1.3) mg/dL AST 19 (17-59) U/L ALT 17 (4-49) U/L Alkaline Phosphatase 125 (38-126) U/L Troponin I (0.000-0.034) ng/mL Total Protein 7.8 (6.3-8.2) g/dL Albumin 4.5 (3.5-5.0) g/dL Acetone, Qual Positive (Negative) 08/07/21 08/07/21 Range/Units 13:08 13:26 WBC (3.8-10.6) k/uL RBC (4.30-5.90) m/uL Hgb (13.0-17.5) gm/dL Hct (39.0-53.0) % MCV (80.0-100.0) fL MCH (25.0-35.0) pg MCHC (31.0-37.0) g/dL RDW (11.5-15.5) % Plt Count (150-450) k/uL MPV Neutrophils % % Lymphocytes % % Monocytes % % Eosinophils % % Basophils % % Neutrophils # (1.3-7.7) k/uL Lymphocytes # (1.0-4.8) k/uL Monocytes # (0-1.0) k/uL Eosinophils # (0-0.7) k/uL Basophils # (0-0.2) k/uL PT (9.0-12.0) sec INR (<1.2) APTT (22.0-30.0) sec VBG pH 7.37 (7.31-7.41) VBG pCO2 28 L (37-51) mmHg VBG HCO3 16 L (24-28) mmol/L Sodium (137-145) mmol/L Potassium (3.5-5.1) mmol/L Chloride (98-107) mmol/L Carbon Dioxide (22-30) mmol/L Anion Gap mmol/L BUN (9-20) mg/dL Creatinine (0.66-1.25) mg/dL Est GFR (CKD-EPI)AfAm (>60 ml/min/1.73 sqM) Est GFR (CKD-EPI)NonAf (>60 ml/min/1.73 sqM) Glucose (74-99) mg/dL Calcium (8.4-10.2) mg/dL Magnesium (1.6-2.3) mg/dL Total Bilirubin (0.2-1.3) mg/dL AST (17-59) U/L ALT (4-49) U/L Alkaline Phosphatase (38-126) U/L Troponin I <0.012 (0.000-0.034) ng/mL Total Protein (6.3-8.2) g/dL Albumin (3.5-5.0) g/dL Acetone, Qual (Negative) - Radiology Data Radiology results: report reviewed (Chest x-ray: No acute process. No significant change from prior.) Noncontrast head CT: No acute intracranial hemorrhage or midline shift. There is mild to moderate diffuse cerebral atrophy and mild chronic small vessel ischemic change along with old right MCA distribution infarct are all redemonstrated. No significant change from prior CT. CT angiogram head and neck with IV contrast: No significant stenosis in common or internal carotid arteries bilaterally. No aneurysm or significant stenosis at level of the [place]. Disposition Clinical Impression: Left facial numbness, Hyperglycemia Narrative: Mild diabetic ketoacidosis Disposition: ADMITTED IP TO THIS HOSP Condition: Stable Is patient prescribed a controlled substance at d/c from ED?: No Time of Disposition: 14:16
[2021-08-07] MEDS ORDERED: SODIUM CHLORIDE 0.9% 1,000 ML IV STA (12:53)
--- NOTE | 2021-08-07 13:23 | XR ---
EXAMINATION TYPE: XR chest 1V portable DATE OF EXAM: 08/07/2021 COMPARISON: Chest x-ray August 30, 2017 HISTORY: Dizziness and weakness. TECHNIQUE: Single portable frontal semiupright view of the chest is obtained. FINDINGS: There is no suspicious new focal air space opacity, pleural effusion, or pneumothorax seen . The cardiac silhouette size remains within normal limits. Overlying EKG leads redemonstrated. The osseous structures are intact. IMPRESSION: No acute process. No significant change from prior.
--- NOTE | 2021-08-07 13:26 | CT ---
EXAMINATION TYPE: CT brain wo con DATE OF EXAM: 08/07/2021 HISTORY: Dizziness, acute onset neuro deficit. CT DLP: 1086.4 mGycm. Automated Exposure Control for Dose Reduction was Utilized. TECHNIQUE: CT scan of the head is performed without contrast. COMPARISON: CT brain August 30, 2017 FINDINGS: There is no acute intracranial hemorrhage or midline shift identified. There is mild-to-m oderate diffuse ventricular and sulcal prominence consistent with diffuse age-related cerebral atroph y. There is mild low-attenuation in the periventricular white matter consistent with chronic small v essel ischemic change. Old infarct right MCA distribution redemonstrated. The globes are intact and t he visualized sinuses are clear. IMPRESSION: No acute intracranial hemorrhage or midline shift. There is mild to moderate diffuse ce rebral atrophy and mild chronic small vessel ischemic change along with old right MCA distribution in farct are all redemonstrated. No significant change from prior CT.
[2021-08-07 13:29] LABS: Basophils % (A) 0 %; Eosinophils % (A) 0 %; HCT 44.8 % (39.0-53.0); HGB 14.5 gm/dL (13.0-17.5); Lymphocytes # (A) 0.8 k/uL (1.0-4.8); Lymphocytes % (A) 8 %; MCH 28.5 pg (25.0-35.0); MCHC 32.4 g/dL (31.0-37.0); MCV 87.9 fL (80.0-100.0); Mean Platelet Volume 8.7; Monocytes # (A) 0.7 k/uL (0-1.0); Monocytes % (A) 6 %; Neutrophils # (A) 8.4 k/uL (1.3-7.7); Neutrophils % (A) 82 %; Platelet Count 223 k/uL (150-450); RDW 12.8 % (11.5-15.5); WBC 10.2 k/uL (3.8-10.6)
[2021-08-07 13:40] LABS: INR 0.9 (<1.2); Partial Thromboplastin Time 23.6 sec (22.0-30.0); Prothrombin Time 9.6 sec (9.0-12.0)
[2021-08-07 13:53] LABS: ALT 17 U/L (4-49); AST 19 U/L (17-59); African American GFR (CKD) >90 (>60 ml/min/1.73 sqM); Albumin 4.5 g/dL (3.5-5.0); Alkaline Phosphatase 125 U/L (38-126); Anion Gap 18 mmol/L; Blood Urea Nitrogen 17 mg/dL (9-20); Calcium 10.2 mg/dL (8.4-10.2); Carbon Dioxide 14 mmol/L (22-30); Chloride 104 mmol/L (98-107); Glucose 296 mg/dL (74-99); Magnesium 1.9 mg/dL (1.6-2.3); Non-African American GFR(CKD) 86 (>60 ml/min/1.73 sqM); Potassium 4.6 mmol/L (3.5-5.1); Sodium 136 mmol/L (137-145); Total Bilirubin 0.7 mg/dL (0.2-1.3); Total Protein 7.8 g/dL (6.3-8.2)
[2021-08-07] MEDS ORDERED: SODIUM CHLORIDE 0.9% 1,000 ML IV ONE (14:01)
[2021-08-07] MEDS ORDERED: ASPIRIN 325 MG TAB PO STA (14:01)
[2021-08-07 14:06] LABS: VBG PH 7.37 (7.31-7.41)
[2021-08-07] MEDS ORDERED: INSULIN REGULAR BOLUS (FROM DRIP BAG) IV ONE (14:15)
[2021-08-07] MEDS ORDERED: INSULIN REGULAR 100 UNIT in SODIUM CHLORIDE 0.9% 100 ML IV SCH (14:15)
[2021-08-07] MEDS ORDERED: Potassium Replacement Protocol 1 EACH MISC MISCELLANE PRN (14:15)
[2021-08-07] MEDS ORDERED: Magnesium Replacement Protocol 1 EACH MISC MISCELLANE PRN (14:15)
[2021-08-07 14:49] LABS: Glucose,Whole Blood 254 mg/dL (75-99)
--- NOTE | 2021-08-07 15:00 | HP ---
HISTORY AND PHYSICAL DATE OF SERVICE: 08/07/2021. CHIEF COMPLAINTS: Dizziness and weakness. HISTORY OF PRESENT ILLNESS: This 66-year-old gentleman with a past medical history of CVA, TIA involving the left side, diabetes mellitus, type 2, history of hyperlipidemia, history of prostate disease, being followed by Dr. Perera in the outpatient setting, was able to walk previously, but the patient was getting progressively weak for the last 2 days, and apparently today the patient had lightheadedness. The patient almost feel. He is also rather drowsy. The patient also noted some numbness and some weakness of the left side of the body. The patient came to [facility] for further evaluation. Sugars were found to be 334. Otherwise, the CO2 was 14, anion gap was 18, glucose 296 and serum acetone was positive, indicating possible mild diabetic ketoacidosis also. There is no history of any fever, rigors or chills. No history of headache, loss of consciousness, seizures at this time. PAST MEDICAL HISTORY: History of CVA, TIA, diabetes mellitus, hypertension, hyperlipidemia, history of prostate disorder. HOME MEDICATIONS: Reviewed. They include Glucophage 1000 mg p.o. b.i.d., coenzyme Q, Flomax, Zocor, Lyrica, Paxil, Cozaar, Toujeo, NovoLog scale, Cymbalta, vitamin D3, aspirin. Doses are reviewed. ALLERGIES: KEFLEX and EFFEXOR. FAMILY HISTORY: History of cancer in the family. SOCIAL HISTORY: No history of smoking. Occasional alcohol intake. REVIEW OF SYSTEMS: Review of systems could not be taken; the patient is slightly drowsy. PHYSICAL EXAMINATION: Patient is drowsy, arousable. Pulse 105, blood pressure 144/80, respiration 18, temperature 98.9, pulse ox 96% on room air. HEENT: Conjunctivae normal. Oral mucosa moist. NECK: No jugular venous distention. No carotid bruit. No lymph node enlargement. CARDIOVASCULAR: S1, S2 muffled. RESPIRATION: Breath sounds diminished at the bases. A few scattered rhonchi. No crackles. ABDOMEN: Soft, nontender. No mass palpable. LEGS: No edema. No swelling. NERVOUS SYSTEM: Higher functions as mentioned earlier. Minimal facial drooping on the left side present. Left-sided weakness also present. Some finger-nose incoordination on the left side also present. Gait not tested. SKIN: No ulcer, rash, bleeding. JOINTS: No active deforming arthropathy. LABS: CBC within normal limits. Otherwise, pH is normal. Sodium 136. Other labs are noted. Glucose 296. ASSESSMENT: 1. Weakness and dizziness over the left side of the body. Rule out acute stroke. 2. Diabetes mellitus, type 2, uncontrolled, with hyperglycemia with mild acute diabetic ketoacidosis. 3. Hyponatremia. 4. Mild metabolic acidosis, compensated. 5. History of cerebrovascular accident, transient ischemic attack. 6. Diabetes mellitus, type 2. 7. Hypertension. 8. Hyperlipidemia. 9. History of prostate disorder. 10.History of benign prostatic hypertrophy. 11.History of anxiety, depression. 12.FULL CODE. RECOMMENDATIONS AND DISCUSSION: In this 66-year-old gentleman who presented with multiple complex medical issues, we will monitor the patient closely, continue the current medications, continue symptomatic treatment. Otherwise at this time I recommend STROKE CODE and a neurology consultation, neurovascular consultation as well to rule out the possibility of acute stroke. The patient also had elevated blood glucose with some mild acidosis, which is rather compensated; possibly early or mild diabetic ketoacidosis. I would recommend IV insulin also and continue to monitor. Otherwise, continue the rest of the medications. Prognosis guarded. Further recommendations to follow. Discussed with family at length at the bedside, who understands and agrees. A copy of this dictation is being forwarded to Dr. Perera, who is the primary physician. YENNY / ALLYSON: [id number] / SYD
[2021-08-07] MEDS: SODIUM CHLORIDE 0.9% 1,000 ML IV SCH ×2 (15:04→22:45)
--- NOTE | 2021-08-07 15:50 | CT ---
EXAMINATION TYPE: CODE STROKE: CTA head neck DATE OF EXAM: 08/07/2021 HISTORY: cva, acute onset neuro deficit, left-sided facial numbness. COMPARISON: NONE CT DLP: 482.3 mGycm. Automated Exposure Control for Dose Reduction was Utilized. TECHNIQUE: CTA scan of the head and neck are performed with IV Contrast, patient injected with 65cc mL of Isovue 370, axial images are obtained, coronal and sagittal reformatted images are reviewed. 3D reconstructed images are created on an independent workstation and reviewed. FINDINGS: Carotid/Vascular Structures: There is direct origin of the right common carotid artery from the aorti c arch . 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 Mild calcified plaque at origin of arch vessels without significant stenosis. No signific ant plaque or stenosis in the remainder of the common carotid arteries bilaterally. [id number] calcified plaque right carotid bulb extends into proximal internal carotid artery without significant stenosis. Mild left-sided plaque left carotid bulb into left internal carotid artery without signifi cant stenosis. No significant plaque or stenosis in the external carotid arteries bilaterally. Right vertebral artery is dominant. Vertebral arteries are patent to basilar junction. There is hypop lastic right P1 segment with filling of the right P2 segment due to patent posterior communicating ar courtney. There is small caliber but patent left posterior commuting artery. No significant focal stenosi s or aneurysm in the posterior circulation. 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 Asymmetrically smaller left anterior cerebral artery. No significant focal stenosis or aneurysm in the anterior circulation. [id number] calcified plaque distal internal carotid arter ies bilaterally. Other: Moderate to severe spurring with moderate disc space narrowing C5-C6 level. Other cervical lev els show [id number] disc space narrowing and spurring. IMPRESSION: No significant stenosis in common or internal carotid arteries bilaterally. No aneurysm or significant stenosis at level of the [place]. NASCET criteria was used in interpretation of this exam?
[2021-08-07] MEDS: D5-0.45% NACL WITH KCL 20MEQ/L 1,000 ML IV SCH ×3 (16:12→22:46)
[2021-08-07 16:13] LABS: Glucose,Whole Blood 280 mg/dL (75-99)
[2021-08-07 16:34] LABS: Appearance,Urine Clear (Clear); Bilirubin,Urine Negative (Negative); Blood,Urine Negative (Negative); Color,Urine Yellow; Glucose,Urine (UA) 4+ (Negative); Leukocyte Esterase,Urine Negative (Negative); Nitrite,Urine Negative (Negative); PH, Urine 5.5 (5.0-8.0); Protein,Urine Trace (Negative); Urobilinogen,Urine <2.0 mg/dL (<2.0)
[2021-08-07 16:46] LABS: Specific Gravity,Urine >1.050 (1.001-1.035)
[2021-08-07 16:48] LABS: Ketones,Urine 4+ (Negative)
[2021-08-07 17:16] LABS: Glucose,Whole Blood 282 mg/dL (75-99)
[2021-08-07 18:19] LABS: Glucose,Whole Blood 377 mg/dL (75-99)
[2021-08-07 19:18] LABS: Glucose,Whole Blood 244 mg/dL (75-99)
[2021-08-07 19:27] LABS: VBG PH 7.45 (7.31-7.41)
[2021-08-07 19:45] LABS: African American GFR (CKD) >90 (>60 ml/min/1.73 sqM); Anion Gap 9 mmol/L; Blood Urea Nitrogen 18 mg/dL (9-20); Carbon Dioxide 21 mmol/L (22-30); Chloride 107 mmol/L (98-107); Glucose 217 mg/dL (74-99); Non-African American GFR(CKD) >90 (>60 ml/min/1.73 sqM); Potassium 4.1 mmol/L (3.5-5.1); Sodium 137 mmol/L (137-145)
[2021-08-07] MEDS: PREGABALIN 100 MG CAP PO SCH (20:01)
[2021-08-07] MEDS: LOSARTAN 25 MG TAB PO SCH (20:01)
[2021-08-07] MEDS: metFORMIN 500 MG TAB PO SCH (20:01)
[2021-08-07] MEDS: ATORVASTATIN 20 MG TAB PO SCH (20:01)
[2021-08-07] MEDS: TAMSULOSIN 0.4 MG CAP.ER.24H PO SCH (20:01)
[2021-08-07] MEDS: ASPIRIN 325 MG TAB PO SCH (20:01)
[2021-08-07] MEDS: DULoxetine HCL 30 MG CAPSULE.DR PO SCH (20:02)
[2021-08-07 20:31] LABS: Glucose,Whole Blood 217 mg/dL (75-99)
[2021-08-07 20:31] LABS: Glucose,Whole Blood 117 mg/dL (75-99)
[2021-08-07 21:08] LABS: Glucose,Whole Blood 182 mg/dL (75-99)
[2021-08-07] MEDS: INSULIN DETEMIR (LEVEMIR) 100 UNIT/ML SYR SQ SCH (22:45)
[2021-08-07 23:56] LABS: African American GFR (CKD) >90 (>60 ml/min/1.73 sqM); Anion Gap 10 mmol/L; Blood Urea Nitrogen 18 mg/dL (9-20); Carbon Dioxide 20 mmol/L (22-30); Chloride 104 mmol/L (98-107); Glucose 160 mg/dL (74-99); Non-African American GFR(CKD) >90 (>60 ml/min/1.73 sqM); Phosphorus 3.2 mg/dL (2.5-4.5); Sodium 134 mmol/L (137-145)
[2021-08-08] MEDS: MORPHINE SULFATE 2 MG/ML SYRINGE IVP PRN ×2 (04:51→08:43)
[2021-08-08 06:39] LABS: Glucose,Whole Blood 128 mg/dL (75-99)
[2021-08-08] MEDS: INSULIN ASPART (NovoLOG) 100 UNIT/ML VIAL SQ SCH ×4 (06:46→20:12)
[2021-08-08] MEDS: D5-0.45% NACL WITH KCL 20MEQ/L 1,000 ML IV SCH ×2 (06:46→11:41)
[2021-08-08 08:14] LABS: Basophils % (A) 0 %; Eosinophils # (A) 0.1 k/uL (0-0.7); Eosinophils % (A) 1 %; HCT 38.8 % (39.0-53.0); HGB 12.8 gm/dL (13.0-17.5); Lymphocytes % (A) 11 %; MCH 28.7 pg (25.0-35.0); MCV 86.9 fL (80.0-100.0); Mean Platelet Volume 8.4; Monocytes # (A) 0.5 k/uL (0-1.0); Monocytes % (A) 6 %; Neutrophils % (A) 80 %; Platelet Count 189 k/uL (150-450); RBC 4.46 m/uL (4.30-5.90); RDW 12.6 % (11.5-15.5); WBC 8.8 k/uL (3.8-10.6)
[2021-08-08] MEDS: SODIUM CHLORIDE 0.9% 1,000 ML IV SCH ×2 (08:40→11:46)
[2021-08-08] MEDS: PREGABALIN 100 MG CAP PO SCH ×2 (08:41→20:11)
[2021-08-08] MEDS: DULoxetine HCL 30 MG CAPSULE.DR PO SCH ×2 (08:42→20:11)
[2021-08-08] MEDS: metFORMIN 500 MG TAB PO SCH ×2 (08:42→20:11)
[2021-08-08 09:17] LABS: ALT 13 U/L (4-49); AST 15 U/L (17-59); African American GFR (CKD) >90 (>60 ml/min/1.73 sqM); Albumin 3.4 g/dL (3.5-5.0); Alkaline Phosphatase 89 U/L (38-126); Anion Gap 8 mmol/L; Blood Urea Nitrogen 12 mg/dL (9-20); Calcium 8.7 mg/dL (8.4-10.2); Carbon Dioxide 22 mmol/L (22-30); Chloride 105 mmol/L (98-107); Glucose 121 mg/dL (74-99); Non-African American GFR(CKD) >90 (>60 ml/min/1.73 sqM); Potassium 3.6 mmol/L (3.5-5.1); Sodium 135 mmol/L (137-145); Total Bilirubin 0.4 mg/dL (0.2-1.3); Total Protein 6.4 g/dL (6.3-8.2)
--- NOTE | 2021-08-08 10:05 | P.CNNES ---
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 Some of the history is obtained from medical record that. Patient's notified the ED team that the patient's a blood sugar has been elevated since the day before he presents the hospital and had an sugar reading of 5:30 last night before presented to the hospital in the morning the day of presented to the hospital he had 334. Neurology is consulted for paresthesia of the left side of the face. According to the patient he is having pain in his teeth for the past one week. Patient came in with a DKA but had the left facial numbness at about 8:30 or 9 PM last night, prior to presenting to the hospital when he went to sleep and the the primary team recommended the stroker to be activated. He said he continues to have paresthesia over the left side and did not have it prior to that. He denies of any new focal weakness, difficulty getting his words out, visual disturbance, difficulty swallowing. Patient is taking aspirin 325 daily at bedtime, simvastatin 40 mg daily at bedtime. Patient stated he is not compliant taking his diabetic medication. He denies of headaches. He denies of tobacco use or illicit drug use. He drinks alcohol socially. Patient followed-up with different neurologist in the past (Dr. Horner, [facility]). Patient other home medication of patient is metformin, NovoLog, glargine, Cymbalta, Paxil, Cozaar. CT of the head is reported as no acute intracranial hemorrhage or midline shift. There is mild to moderate diffuse cerebral atrophy and mild chronic small vessel ischemic change along with old right MCA distribution infarct R old redemonstrated. No significant change from prior CT. I personally reviewed the CT of the head and I don't see any acute subacute changes or any intraparenchymal hemorrhage that is appreciable. The patient had right MCA stroke and and the last CT wasn't 2013 and the right MCA stroke was a noted there. Because of the primary team's request for stroke code the ED team is the case with the stroke team (Dr. Ruiz) and he felt the patient's for likely due to DKA per the ED note. CT angiography of the head and neck was reported as no significant stenosis and common or internal carotid artery bilaterally. No aneurysm or significant stenosis level [place]. Some of the other workup in the hospital consisted of: Initial vital signs was blood pressure 154/69, heart rate of 117, respiratory of 18, temperature of 98.9 Fahrenheit oral and pulse ox of 97% at room air. White blood cells 10.2 thousand, platelets L5 to 23,000, hemoglobin of 14.5 hematocrit is a 44.8 Initially the serum glucose is 296 and acetone is positive Sodium is 136, creatinine is 0.92, calcium 7.2, magnesium is 1.9, AST of 19, ALT of 17. Urine Analysis is negative for urinary tract infection. Begum virus is non-detected. Review of Systems Review of system: The 12 point system was reviewed and apparent positive and negative per HPI. Past Medical History Past Medical History: CVA/TIA, Diabetes Mellitus, Hyperlipidemia, Hypertension, Prostate Disorder Additional Past Medical History / Comment(s): bph History of Any Multi-Drug Resistant Organisms: None Reported Past Surgical History: No Surgical Hx Reported Additional Past Surgical History / Comment(s): right endarderectomy Past Anesthesia/Blood Transfusion Reactions: No Reported Reaction Past Psychological History: Anxiety, Depression Smoking Status: Never smoker Past Alcohol Use History: Occasional Past Drug Use History: None Reported - Past Family History Father Family Medical History: Cancer Mother History Unknown: Yes Family Medical History: Congestive Heart Failure (CHF), COPD, Coronary Artery Disease (CAD), Diabetes Mellitus, Myocardial Infarction ([place]) Medications and Allergies Home Medications Medication Instructions Recorded Confirmed Type Aspirin 325 mg PO HS 08/20/14 08/07/21 History Cholecalciferol [Vitamin D3 (25 2,000 unit PO DAILY 08/20/14 08/07/21 History Mcg = 1000 Iu)] Pregabalin [Lyrica] 400 mg PO DAILY 08/20/14 08/07/21 History Tamsulosin [Flomax] 0.4 mg PO HS 08/20/14 08/07/21 History Ubidecarenone [Co Q-10] 200 mg PO DAILY 08/20/14 08/07/21 History Pregabalin [Lyrica] 200 mg PO HS 05/01/16 08/07/21 History DULoxetine HCL [Cymbalta] 30 mg PO BID 07/14/17 08/07/21 History INSULIN ASPART (NovoLOG) [NovoLOG See Protocol SQ AC-TID PRN 07/14/17 08/07/21 History (formulary)] Insulin Glargine,Hum.rec.anlog 40 units SQ HS 07/14/17 08/07/21 History [Toujeo Solostar] metFORMIN HCL [Glucophage] 1,000 mg PO BID 07/14/17 08/07/21 History Losartan Potassium [Cozaar] 25 mg PO HS 08/07/21 08/07/21 History PARoxetine HCL [Paxil] 30 mg PO DAILY 08/07/21 08/07/21 History Simvastatin [Zocor] 40 mg PO HS 08/07/21 08/07/21 History Allergies Allergy/AdvReac Type Severity Reaction Status Date / Time cephalexin monohydrate AdvReac Vomiting Verified 08/07/21 14:17 [From Keflex] venlafaxine [From Effexor] AdvReac Rapid Verified 08/07/21 14:17 Heart Rate Physical Examination - Vital Signs Vital Signs: Vital Signs Temp Pulse Pulse Resp BP BP Pulse Ox 08/08/21 04:00 99.8 F H 93 18 161/88 96 08/07/21 23:57 91 16 08/07/21 23:26 99.0 F 91 17 123/54 96 08/07/21 19:43 99.8 F H 104 H 17 164/84 97 08/07/21 17:33 103 H 18 126/79 98 08/07/21 16:30 98.1 F 94 18 114/86 96 08/07/21 14:00 105 H 18 144/80 96 08/07/21 13:45 108 H 18 148/82 95 08/07/21 13:30 105 H 20 143/81 95 08/07/21 12:21 98.9 F 117 H 18 154/69 97 Intake and Output 08/07/21 08/08/21 08/08/21 22:59 06:59 14:59 Intake Total 50.305 600 Balance 50.305 600 Intake: Intake, IV Titration 50.305 600 Amount D5-0.45% NaCl with KCl 600 20Meq/l 1,000 ml @ 150 mls/hr IV .Q6H40M [facility] Rx# :[id number] Insulin Regular 100 unit 50.305 In Sodium Chloride 0.9% 100 ml @ 0.1 UNITS/KG/HR 9.025 mls/hr IV .[id number] [facility] Rx#:[id number] Other: # Voids 1 Weight 89.358 kg 89.4 kg GENERAL: The patient is lying in bed and is not in acute distress. HENT: Upon touching his teach he was in severe pain and mostly it was entire top row of teeth. CHEST: The heart rate is regular rate rhythm. No murmurs to auscultation. No carotid bruit bilaterally. LUNG: Clear to auscultation bilaterally no wheezing noted throughout. Not labored breathing. ABDOMEN/GI: Bowel sounds present in all 4 quadrants. No tenderness to palpation throughout. NEUROLOGICAL: Higher mental function: The patient is awake, alert, oriented to self, place and time. Patient is following commands. No aphasia and no neglect. Cranial nerves: The pupils are round, equal and reactive to light and accommodation. Visual rod are full to confrontation throughout. Extraocular movement is intact no nystagmus is noted. Facial sensation is normal to touch throughout. The facial strength is normal throughout. Hearing is normal bilaterally to hand rub. Tongue is midline and moved [id number] without any difficulty. No dysarthria is noted. Shoulder shrug is normal bilaterally. Motor: Gait is deferred. The strength is left upper extremity is 4+, left hand spot cleaner is 5-, left lower extremity is 4+ to 5- (per patient chronic). Otherwise, 5 over 5 throughout. Normal tone and bulk. Cerebellum: Normal finger to nose bilaterally. Sensation: Sensation is decrease on Left V1 and V2 region to touch otherwise normal throughout. Reflexes (right/left): 2+ throughout uppers while patellars are 3+ and ankles are 1+ bilaterally.. Plantars is upgoing at baseline over the left and mute over the right. Results - Laboratory Findings CBC and BMP: 08/08/21 07:31 08/08/21 07:31 Abnormal Lab Findings: Abnormal Labs 08/07/21 08/07/21 08/07/21 13:08 13:08 13:26 Neutrophils # 8.4 H Lymphocytes # 0.8 L VBG pH VBG pCO2 28 L VBG HCO3 16 L Sodium 136 L Carbon Dioxide 14 L Glucose 296 H POC Glucose (mg/dL) Ur Specific [place] Urine Protein Urine Glucose (UA) Urine Ketones 08/07/21 08/07/21 08/07/21 14:46 15:55 16:12 Neutrophils # Lymphocytes # VBG pH VBG pCO2 VBG HCO3 Sodium Carbon Dioxide Glucose POC Glucose (mg/dL) 254 H 280 H Ur Specific [place] >1.050 H Urine Protein Trace H Urine Glucose (UA) 4+ H Urine Ketones 4+ H 08/07/21 08/07/21 08/07/21 17:14 18:17 19:06 Neutrophils # Lymphocytes # VBG pH 7.45 H VBG pCO2 28 L VBG HCO3 19 L Sodium Carbon Dioxide Glucose POC Glucose (mg/dL) 282 H 377 H Ur Specific [place] Urine Protein Urine Glucose (UA) Urine Ketones 08/07/21 08/07/21 08/07/21 19:06 19:06 20:02 Neutrophils # Lymphocytes # VBG pH VBG pCO2 VBG HCO3 Sodium Carbon Dioxide 21 L Glucose 217 H POC Glucose (mg/dL) 244 H 217 H Ur Specific [place] Urine Protein Urine Glucose (UA) Urine Ketones 08/07/21 08/07/21 08/07/21 20:20 21:06 23:21 Neutrophils # Lymphocytes # VBG pH VBG pCO2 VBG HCO3 Sodium 134 L Carbon Dioxide 20 L Glucose 160 H POC Glucose (mg/dL) 117 H 182 H Ur Specific [place] Urine Protein Urine Glucose (UA) Urine Ketones 08/08/21 06:29 Neutrophils # Lymphocytes # VBG pH VBG pCO2 VBG HCO3 Sodium Carbon Dioxide Glucose POC Glucose (mg/dL) 128 H Ur Specific [place] Urine Protein Urine Glucose (UA) Urine Ketones Assessment and Plan Assessment: Paresthesia of the left face that presented day prior to presenting to hospital: Having entire upper teeth pain and rule out any tooth infection/abscess. And possibly due to metabolic derangement (DKA). Unlikely stroke. Acute DKA (non-compliant with his medication) History of right MCA stroke with residual left-sided weakness Type 2 diabetes and is uncontrolled (last HbA1c 14.3 in 2019) Diabetic neuropathy Hyperlipidemia Plan: Ordered MRI Brain w/ and w/o urgent. I ordered vitamin B12, folate and hemoglobin A1c. The ED the patient was given aspirin 325 once then the was continued on his home dose of 325 the daily at bedtime the daily. The patient is on Lipitor 20 mg daily at bedtime which is sufficient for secondary stroke prophylaxis On every 4 hours neuro checks Recommend dentist to be consulted and if not possible recommend patient following-up with dentist ALEXUS. We'll defer the rest of the medical management to the primary team. Patient was counseled on medication compliance. Upon discharge the patient needs to follow-up with his neurologist within 1-2 weeks. The plan is discussed with the patient and his nurse. Thank you for the consultation. Darke Vivar M.D. Neuro-hospitalist Time with Patient: Greater than 30
[2021-08-08] MEDS ORDERED: MORPHINE SULFATE 4 MG/ML SYRINGE IVP PRN (10:33)
[2021-08-08] MEDS: HYDROcodone/APAP 5-325MG 1 EACH TAB PO PRN ×2 (11:16→20:11)
[2021-08-08] MEDS: PARoxetine 10 MG TAB PO SCH (11:18)
[2021-08-08 11:21] LABS: Glucose,Whole Blood 164 mg/dL (75-99)
[2021-08-08 14:01] VITALS: BMI 28.3
--- NOTE | 2021-08-08 14:17 | MR ---
EXAMINATION TYPE: MR brain wo/w con DATE OF EXAM: 08/08/2021 COMPARISON: CT brain from yesterday HISTORY: Dizziness, evaluate for CVA. TECHNIQUE: Multiplanar, multisequence images of the brain and brainstem is performed without and with IV contras t, utilizing 9 mL intravenous Gadavist . FINDINGS: Diffusion weighted images demonstrate no evidence of a recent infarct or other diffusion ab normality. Mild to moderate ventricular and sulcal prominence redemonstrated. Old infarct in the righ t MCA distribution causing T2 shine through involving superior aspect right frontal and parietal lobe s redemonstrated. Occasional scattered tiny focus of T2 hyperintensity throughout the white matter bi laterally. Midline structures demonstrate normal morphology. The craniocervical junction appears within normal limits. Post contrast images demonstrate no abnormal enhancement. The dural venous sinuses appear pa tent. The visualized sinuses are clear and the globes are intact. Nasal septum redemonstrated deviate d to left of midline. IMPRESSION: No MRI evidence for recent infarct. Mild to moderate diffuse cerebral atrophy and mild ch ronic small vessel ischemic change with old right MCA distribution infarct all are redemonstrated.
[2021-08-08 15:01] LABS: Folate, Serum >20.00 ng/mL (4.40-31.00)
--- NOTE | 2021-08-08 15:03 | P.PN ---
Subjective Progress Note Date: 08/08/21 This is a 66-year-old male who was recently admitted with some weakness that had progressively been getting worse over the last few days along with some numbness and left side weakness and deficits noted. Neurology following the patient an MRI is ordered of the brain. Blood sugars improving and will continue with current regimen of sliding scale and long-acting and continued Accu-Cheks before meals and at bedtime closely. PT/OT evaluate the patient for continued weakness. Patient having some left-sided gum and teeth sensitivities with some swelling and erythema noted to the gums with no obvious abscess or deformity noted. We will consult dentist and start the patient on IV Unasyn. Await brain MRI. Patient also continues with low-grade temps and will continue to monitor closely. Review of systems: Constitutional: No reports of fatigue, fever, or chills Cardiovascular: No reports of chest pain or palpitations Respiratory: No reports of shortness of breath or cough GI: No reports of nausea, vomiting, or diarrhea : No reports of dysuria or retention Neurovascular: reports left-sided facial pain and swelling with extreme pain and sensitivity of the left upper jaw gums and teeth All medications have been reviewed Labs: White blood count is 8.8, hemoglobin is 12.8, platelets are 189, sodium is 135, potassium 3.6, creatinine is 0.57 All medications have been reviewed Active Medications Hydrocodone Bitart/Acetaminophen (Hydrocodone/Apap 5-325mg 1 Each Tab) 1 each PO Q6HR PRN PRN Reason: Pain Last Admin: 08/08/21 11:16 Dose: 1 each Documented by: Aspirin (Aspirin 325 Mg Tab) 325 mg PO [facility] Last Admin: 08/07/21 20:01 Dose: 325 mg Documented by: Atorvastatin Calcium (Atorvastatin 20 Mg Tab) 20 mg PO [facility] Last Admin: 08/07/21 20:01 Dose: 20 mg Documented by: Duloxetine HCl (Duloxetine Hcl 30 Mg Capsule.Dr) 30 mg PO BID [facility] Last Admin: 08/08/21 08:42 Dose: 30 mg Documented by: Ampicillin Sodium/Sulbactam (Sodium 3 gm/ Sodium Chloride) 100 mls @ 200 mls/hr IVPB Q6HR [facility] Insulin Aspart (Insulin Aspart (Novolog) 100 Unit/Ml Vial) 0 unit SQ AC-TID [facility]; Protocol Last Admin: 08/08/21 11:48 Dose: 1 unit Documented by: Insulin Detemir (Insulin Detemir (Levemir) 100 Unit/Ml Syr) 40 unit SQ [facility] Last Admin: 08/07/21 22:45 Dose: 40 unit Documented by: Losartan Potassium (Losartan 25 Mg Tab) 25 mg PO HS [facility] Last Admin: 08/07/21 20:01 Dose: 25 mg Documented by: Metformin HCl (Metformin 500 Mg Tab) 1,000 mg PO BID [facility] Last Admin: 08/08/21 08:42 Dose: 1,000 mg Documented by: Miscellaneous Information (Magnesium Replacement Protocol 1 Each Misc) 1 each MISCELLANE DAILY PRN; Protocol PRN Reason: Per Protocol Miscellaneous Information (Potassium Replacement Protocol 1 Each Mis) 1 each MISCELLANE DAILY PRN PRN Reason: Per Protocol Morphine Sulfate (Morphine Sulfate 4 Mg/Ml Syringe) 4 mg IVP Q4HR PRN PRN Reason: Pain/Discomfort Paroxetine HCl (Paroxetine 10 Mg Tab) 30 mg PO DAILY [facility] Last Admin: 08/08/21 11:18 Dose: 30 mg Documented by: Pregabalin (Pregabalin 100 Mg Cap) 200 mg PO [facility] Last Admin: 08/07/21 20:01 Dose: 200 mg Documented by: Pregabalin (Pregabalin 100 Mg Cap) 400 mg PO DAILY [facility] Last Admin: 08/08/21 08:41 Dose: 400 mg Documented by: Tamsulosin HCl (Tamsulosin 0.4 Mg Cap.Er.24h) 0.4 mg PO [facility] Last Admin: 08/07/21 20:01 Dose: 0.4 mg Documented by: Physical exam: Gen: This is 66-year-old male who is awake, alert and oriented 3, well-develo ped, well-nourished.. temp is 99.7, pulse is 92, respirations are 16, blood pressure 170/83, oxygen saturation is 97% on room air HEENT: Head is atraumatic, normocephalic. Pupils equal, round. Sclerae is anicteric. Left upper gum swelling with redness and extreme sensitivity to touch noted on exam NECK: Supple. No JVD. No lymphadenopathy. No thyromegaly. LUNGS: Breath sounds are diminished at the bases with wheezing or rhonchi noted. No intercostal retractions. HEART: S1, S2 are muffled ABDOMEN: Soft. Obese. Bowel sounds are present. No masses. No tenderness. EXTREMITIES: No pedal edema. No calf tenderness. NEUROLOGICAL: Alert and oriented 3, left-sided facial swelling noted and str ength is 4-5 on the left, 5-5 on the right Assessment: Weakness and dizziness over the left side of the body, rule out acute stroke diabetes mellitus type 2, uncontrolled with hyperglycemia with mild acute diabetic ketoacidosis Possible left-sided tooth abscess or infection of upper jaw or possible left side herpes zoster hyponatremia mild metabolic acidosis, compensated history of CVA, TIA Diabetes mellitus, type II Hypertension Hyperlipidemia history of prostate disorder history benign prostatic hypertrophy history of anxiety, depression Full code Plan: Recommend to continue with current medications and management and symptomatic treatment. Continues with some left side facial swelling and extreme pain and sensitivity and on exam there is some swelling and erythema noted to the left upper gums and will consult dentist for possible evaluation. Recommend to start the patient on IV anabiotic's patient is also being worked up by neurology and an MRI is ordered for this afternoon. Will await report. Will have PT/OT evaluate the patient for continued weakness. Recommend continue sliding scale and long-acting insulin closely monitor Accu-Cheks before meals and at bedtime. Encouraged increased activity as tolerated. Due to multiple complex medical issues prognosis is guarded. Will Continue to monitor closely and repeat labs. Objective - Vital Signs Vital signs: Vital Signs Temp 99.7 F H 08/08/21 08:30 Pulse 92 08/08/21 08:30 Resp 18 08/08/21 08:30 BP 170/83 08/08/21 08:30 Pulse Ox 97 08/08/21 08:30 Intake & Output 08/07/21 08/08/21 08/08/21 18:59 06:59 18:59 Intake Total 20.721 629.584 240 Balance 20.721 629.584 240 Weight 89.358 kg 89.4 kg Intake: Intake, IV Titration 20.721 629.584 Amount D5-0.45% NaCl with KCl 600 20Meq/l 1,000 ml @ 150 mls/hr IV .Q6H40M [facility] Rx# :[id number] Insulin Regular 100 unit 20.72 29.584 In Sodium Chloride 0.9% 100 ml @ 0.1 UNITS/KG/HR 9.025 mls/hr IV .[id number] [facility] Rx#:[id number] Oral 240 Other: # Voids 1 - Labs CBC & Chem 7: 08/08/21 07:31 08/08/21 07:31 Labs: Abnormal Lab Results - Last 24 Hours (Table) 08/07/21 08/07/21 08/07/21 Range/Units 13:08 13:08 13:26 Hgb (13.0-17.5) gm/dL Hct (39.0-53.0) % Neutrophils # 8.4 H (1.3-7.7) k/uL Lymphocytes # 0.8 L (1.0-4.8) k/uL VBG pH (7.31-7.41) VBG pCO2 28 L (37-51) mmHg VBG HCO3 16 L (24-28) mmol/L Sodium 136 L (137-145) mmol/L Carbon Dioxide 14 L (22-30) mmol/L Creatinine (0.66-1.25) mg/dL Glucose 296 H (74-99) mg/dL POC Glucose (mg/dL) (75-99) mg/dL AST (17-59) U/L Albumin (3.5-5.0) g/dL Ur Specific [place] (1.001-1.035) Urine Protein (Negative) Urine Glucose (UA) (Negative) Urine Ketones (Negative) 08/07/21 08/07/21 08/07/21 Range/Units 14:46 15:55 16:12 Hgb (13.0-17.5) gm/dL Hct (39.0-53.0) % Neutrophils # (1.3-7.7) k/uL Lymphocytes # (1.0-4.8) k/uL VBG pH (7.31-7.41) VBG pCO2 (37-51) mmHg VBG HCO3 (24-28) mmol/L Sodium (137-145) mmol/L Carbon Dioxide (22-30) mmol/L Creatinine (0.66-1.25) mg/dL Glucose (74-99) mg/dL POC Glucose (mg/dL) 254 H 280 H (75-99) mg/dL AST (17-59) U/L Albumin (3.5-5.0) g/dL Ur Specific [place] >1.050 H (1.001-1.035) Urine Protein Trace H (Negative) Urine Glucose (UA) 4+ H (Negative) Urine Ketones 4+ H (Negative) 08/07/21 08/07/21 08/07/21 Range/Units 17:14 18:17 19:06 Hgb (13.0-17.5) gm/dL Hct (39.0-53.0) % Neutrophils # (1.3-7.7) k/uL Lymphocytes # (1.0-4.8) k/uL VBG pH 7.45 H (7.31-7.41) VBG pCO2 28 L (37-51) mmHg VBG HCO3 19 L (24-28) mmol/L Sodium (137-145) mmol/L Carbon Dioxide (22-30) mmol/L Creatinine (0.66-1.25) mg/dL Glucose (74-99) mg/dL POC Glucose (mg/dL) 282 H 377 H (75-99) mg/dL AST (17-59) U/L Albumin (3.5-5.0) g/dL Ur Specific [place] (1.001-1.035) Urine Protein (Negative) Urine Glucose (UA) (Negative) Urine Ketones (Negative) 08/07/21 08/07/21 08/07/21 Range/Units 19:06 19:06 20:02 Hgb (13.0-17.5) gm/dL Hct (39.0-53.0) % Neutrophils # (1.3-7.7) k/uL Lymphocytes # (1.0-4.8) k/uL VBG pH (7.31-7.41) VBG pCO2 (37-51) mmHg VBG HCO3 (24-28) mmol/L Sodium (137-145) mmol/L Carbon Dioxide 21 L (22-30) mmol/L Creatinine (0.66-1.25) mg/dL Glucose 217 H (74-99) mg/dL POC Glucose (mg/dL) 244 H 217 H (75-99) mg/dL AST (17-59) U/L Albumin (3.5-5.0) g/dL Ur Specific [place] (1.001-1.035) Urine Protein (Negative) Urine Glucose (UA) (Negative) Urine Ketones (Negative) 08/07/21 08/07/21 08/07/21 Range/Units 20:20 21:06 23:21 Hgb (13.0-17.5) gm/dL Hct (39.0-53.0) % Neutrophils # (1.3-7.7) k/uL Lymphocytes # (1.0-4.8) k/uL VBG pH (7.31-7.41) VBG pCO2 (37-51) mmHg VBG HCO3 (24-28) mmol/L Sodium 134 L (137-145) mmol/L Carbon Dioxide 20 L (22-30) mmol/L Creatinine (0.66-1.25) mg/dL Glucose 160 H (74-99) mg/dL POC Glucose (mg/dL) 117 H 182 H (75-99) mg/dL AST (17-59) U/L Albumin (3.5-5.0) g/dL Ur Specific [place] (1.001-1.035) Urine Protein (Negative) Urine Glucose (UA) (Negative) Urine Ketones (Negative) 08/08/21 08/08/21 08/08/21 Range/Units 06:29 07:31 07:31 Hgb 12.8 L (13.0-17.5) gm/dL Hct 38.8 L (39.0-53.0) % Neutrophils # (1.3-7.7) k/uL Lymphocytes # (1.0-4.8) k/uL VBG pH (7.31-7.41) VBG pCO2 (37-51) mmHg VBG HCO3 (24-28) mmol/L Sodium 135 L (137-145) mmol/L Carbon Dioxide (22-30) mmol/L Creatinine 0.57 L (0.66-1.25) mg/dL Glucose 121 H (74-99) mg/dL POC Glucose (mg/dL) 128 H (75-99) mg/dL AST 15 L (17-59) U/L Albumin 3.4 L (3.5-5.0) g/dL Ur Specific [place] (1.001-1.035) Urine Protein (Negative) Urine Glucose (UA) (Negative) Urine Ketones (Negative) 08/08/21 Range/Units 11:19 Hgb (13.0-17.5) gm/dL Hct (39.0-53.0) % Neutrophils # (1.3-7.7) k/uL Lymphocytes # (1.0-4.8) k/uL VBG pH (7.31-7.41) VBG pCO2 (37-51) mmHg VBG HCO3 (24-28) mmol/L Sodium (137-145) mmol/L Carbon Dioxide (22-30) mmol/L Creatinine (0.66-1.25) mg/dL Glucose (74-99) mg/dL POC Glucose (mg/dL) 164 H (75-99) mg/dL AST (17-59) U/L Albumin (3.5-5.0) g/dL Ur Specific [place] (1.001-1.035) Urine Protein (Negative) Urine Glucose (UA) (Negative) Urine Ketones (Negative)
[2021-08-08 16:25] LABS: Glucose,Whole Blood 257 mg/dL (75-99)
[2021-08-08] MEDS: AMPICILLIN-SULBACTAM 3 GM in SODIUM CHLORIDE 0.9% 100 ML IVPB SCH ×2 (17:24→23:00)
[2021-08-08] MEDS: ASPIRIN 325 MG TAB PO SCH (20:11)
[2021-08-08] MEDS: ATORVASTATIN 20 MG TAB PO SCH (20:11)
[2021-08-08] MEDS: TAMSULOSIN 0.4 MG CAP.ER.24H PO SCH (20:11)
[2021-08-08] MEDS: LOSARTAN 25 MG TAB PO SCH (20:11)
[2021-08-08 20:41] LABS: Glucose,Whole Blood 353 mg/dL (75-99)
[2021-08-08] MEDS: INSULIN DETEMIR (LEVEMIR) 100 UNIT/ML SYR SQ SCH (23:00)
[2021-08-09] MEDS: INSULIN ASPART (NovoLOG) 100 UNIT/ML VIAL SQ SCH ×3 (06:13→20:48)
[2021-08-09] MEDS: AMPICILLIN-SULBACTAM 3 GM in SODIUM CHLORIDE 0.9% 100 ML IVPB SCH ×4 (06:13→23:24)
[2021-08-09 06:30] LABS: Glucose,Whole Blood 208 mg/dL (75-99)
[2021-08-09] MEDS: PARoxetine 10 MG TAB PO SCH (08:31)
[2021-08-09] MEDS: metFORMIN 500 MG TAB PO SCH ×2 (08:31→20:18)
[2021-08-09] MEDS: DULoxetine HCL 30 MG CAPSULE.DR PO SCH ×2 (08:31→20:18)
[2021-08-09] MEDS: PREGABALIN 100 MG CAP PO SCH ×2 (08:31→20:17)
--- NOTE | 2021-08-09 10:08 | P.GSCN ---
History of Present Illness Consult date: 08/09/21 Reason for Consult: Gums swelling and pain Requesting physician: Nai Guerra History of present illness: This is a 66-year-old male who was recently admitted with some weakness that had progressively been getting worse over the last few days along with some numbness and left side weakness and deficits noted. Neurology following the patient an MRI is ordered of the brain. Blood sugars improving and will continue with current regimen of sliding scale and long-acting and continued Accu-Cheks before meals and at bedtime closely. PT/OT evaluate the patient for continued weakness. Patient having some left-sided gum and teeth sensitivities with some swelling and erythema noted to the gums with no obvious abscess or deformity noted. Hospitalist consult oral surgery regarding this. Patient's pain has been controlled and the patient was started on Unasyn. This morning the patient was asleep in the bed. Easily arousable alert and oriented 3. he reports his pain much improved and gums swelling much improv ed. Review of Systems Patient reports using a toothpick to couch on his gums approximate 2 weeks ago and that was the next morning when the gums swelling started. He is asked for confirmation there is no foreign body present. - Constitutional Reports as per HPI - EENT Ears, nose, mouth and throat: Reports bleeding gums, Reports dental pain, Reports mouth pain Past Medical History Past Medical History: CVA/TIA, Diabetes Mellitus, Hyperlipidemia, Hypertension, Prostate Disorder Additional Past Medical History / Comment(s): bph History of Any Multi-Drug Resistant Organisms: None Reported Past Surgical History: No Surgical Hx Reported Additional Past Surgical History / Comment(s): right endarderectomy Past Anesthesia/Blood Transfusion Reactions: No Reported Reaction Past Psychological History: Anxiety, Depression Smoking Status: Never smoker Past Alcohol Use History: Occasional Past Drug Use History: None Reported - Past Family History Father Family Medical History: Cancer Mother History Unknown: Yes Family Medical History: Congestive Heart Failure (CHF), COPD, Coronary Artery Disease (CAD), Diabetes Mellitus, Myocardial Infarction (CO) Medications and Allergies Home Medications Medication Instructions Recorded Confirmed Type Aspirin 325 mg PO HS 08/20/14 08/07/21 History Cholecalciferol [Vitamin D3 (25 2,000 unit PO DAILY 08/20/14 08/07/21 History Mcg = 1000 Iu)] Pregabalin [Lyrica] 400 mg PO DAILY 08/20/14 08/07/21 History Tamsulosin [Flomax] 0.4 mg PO HS 08/20/14 08/07/21 History Ubidecarenone [Co Q-10] 200 mg PO DAILY 08/20/14 08/07/21 History Pregabalin [Lyrica] 200 mg PO HS 05/01/16 08/07/21 History DULoxetine HCL [Cymbalta] 30 mg PO BID 07/14/17 08/07/21 History INSULIN ASPART (NovoLOG) [NovoLOG See Protocol SQ AC-TID PRN 07/14/17 08/07/21 History (formulary)] Insulin Glargine,Hum.rec.anlog 40 units SQ HS 07/14/17 08/07/21 History [Toujeo Solostar] metFORMIN HCL [Glucophage] 1,000 mg PO BID 07/14/17 08/07/21 History Losartan Potassium [Cozaar] 25 mg PO HS 08/07/21 08/07/21 History PARoxetine HCL [Paxil] 30 mg PO DAILY 08/07/21 08/07/21 History Simvastatin [Zocor] 40 mg PO HS 08/07/21 08/07/21 History Allergies Allergy/AdvReac Type Severity Reaction Status Date / Time cephalexin monohydrate AdvReac Vomiting Verified 08/07/21 14:17 [From Keflex] venlafaxine [From Effexor] AdvReac Rapid Verified 08/07/21 14:17 Heart Rate Surgical - Exam Vital Signs Temp Pulse Resp BP Pulse Ox 98.9 F 117 H 18 154/69 97 08/07/21 12:21 08/07/21 12:21 08/07/21 12:21 08/07/21 12:21 08/07/21 12:21 Easily arousable alert and oriented 3. No apparent distress. Patient reports his gums swelling and pain is much improved. Intraorally his mouth opens well slight swelling of the maxillary vestibule adjacent to teeth numbers 9 through 11 of the upper left. Upon palpation purulence is noted to seat from the gingival crevice between the teeth and the gums. No foreign bodies noted with palpation. Teeth are slightly loose but no obvious periodontal disease present. Decay not noted in the teeth. Vertical fractures possible. Slight tenderness of tooth #10. When compared to the surrounding teeth. - General well developed, well nourished, no distress - Eyes PERRL, normal ocular movement - Neck no masses, trachea midline, no venous distension - Respiratory normal respiratory effort Results - Labs 08/08/21 07:31 08/08/21 07:31 Abnormal Lab Results - Last 24 Hours (Table) 08/08/21 08/08/21 08/08/21 Range/Units 07:31 11:19 16:23 POC Glucose (mg/dL) 164 H 257 H (75-99) mg/dL Hemoglobin A1c 14.8 H (4.0-6.0) % 08/08/21 08/09/21 Range/Units 20:07 06:12 POC Glucose (mg/dL) 353 H 208 H (75-99) mg/dL Hemoglobin A1c (4.0-6.0) % Diabetes panel 08/08/21 Range/Units 07:31 Hemoglobin A1c 14.8 H (4.0-6.0) % - Imaging Comments: No imaging of the maxilla present Assessment and Plan Assessment: Gingival abscess associated with the upper left maxilla. Medical decision making: Possibly related to tooth #10. At this time no foreign body is noted. Difficult assessment due to the swelling, but a toothpick fragment seems unlikely to persist given its organic nature would most likely come out to the surface. Other possibilities include chronic periodontal disease which is worsened acutely due to the DKA. Or a dental cyst could p erhaps be in the maxilla and require imaging to ascertain. Plan: Ordered a facial bones CAT scan with and without contrast including a panoramic reconstruction. Current antibiotic therapy is working well recommend continue. 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 If the patient with elastics to extract offending tooth as an outpatient we are available. Time with Patient: Less than 30
[2021-08-09 10:32] LABS: Glucose,Whole Blood 323 mg/dL (75-99)
--- NOTE | 2021-08-09 11:47 | CT ---
EXAMINATION TYPE: CT facial bones wo/w con DATE OF EXAM: 08/09/2021 COMPARISON: CTA head and neck from 2 days earlier HISTORY: Abscess of the maxilla, focal facial pain and swelling. CT DLP: 1039.6 mGycm Automated exposure control for dose reduction was used. CONTRAST: CT scan of the facial bones is performed without and with IV Contrast, patient injected with 100 ml m L of Isovue 300. FINDINGS: Impacted molar tooth in the left maxillary redemonstrated with adjacent mucosal thickening otherwise paranasal sinuses are clear. There is streak artifact from multiple cavitary fillings and crowns in the bilateral maxillary and ma ndibular teeth making evaluation at this level suboptimal. Mild fat stranding in the maxillary and ma ndibular surrounding subcutaneous fat is seen bilaterally. No well-formed fluid collection or abscess is identified. No suspicious bony destruction seen. Some prominent but subcentimeter lymph nodes are scattered throughout the neck bilaterally. Moderate peripheral calcified plaque in the proximal right internal carotid artery. Nasal septum deviated to l eft of midline. IMPRESSION: No suspicious thick walled fluid collection or abscess
[2021-08-09 11:52] LABS: Glucose,Whole Blood 264 mg/dL (75-99)
--- NOTE | 2021-08-09 15:52 | P.PN ---
Subjective Progress Note Date: 08/09/21 The patient seen at bedside and he stated he is drastically better today compared to yesterday. Oromaxillaryfacial is consulted. He is on IV antibiotic for gingival abscess associated with upper left maxilla. He denies of any headaches, nausea or vomiting. He denies of any new focal weakness. Feels that appears TG over the left side of the face is improving. Objective - Vital Signs Vital signs: Vital Signs Temp 99.1 F 08/09/21 08:00 Pulse 105 H 08/09/21 12:00 Resp 18 08/09/21 12:00 BP 106/67 08/09/21 12:00 Pulse Ox 95 08/09/21 12:00 Intake & Output 08/08/21 08/09/21 08/09/21 18:59 06:59 18:59 Intake Total 476 100 Balance 476 100 Weight 89.4 kg 88.7 kg Intake: Intake, IV Titration 100 Amount Ampicillin-Sulbactam 3 gm 100 In Sodium Chloride 0.9% 100 ml @ 200 mls/hr IVPB Q6HR REPLACED BY [facility] Rx#:[id number] Oral 476 Other: # Voids 2 1 - Exam GENERAL: The patient is lying in bed and is not in acute distress. NEUROLOGICAL: Higher mental function: The patient is awake, alert, oriented to self, place and time. Patient is following commands. No aphasia and no neglect. Cranial nerves: The pupils are round, equal and reactive to light and accommodation. Visual rod are full to confrontation throughout. Extraocular movement is intact no nystagmus is noted. Facial sensation is normal to touch throughout. The facial strength is normal throughout. Tongue is midline and moved [id number] without any difficulty. No dysarthria is noted. Shoulder shrug is normal bilaterally. Motor: Gait is deferred. The strength is left upper extremity is 4+ to 5- in left forearm flexion, left hand compliance engineer products is 5-. Left lower extremity is 4 to 4+ mostly knee. Otherwise, right sided 5 over 5 throughout. Normal tone and bulk. Cerebellum: Normal finger to nose bilaterally. Sensation: Decreased sensation to touch over left lower extreimty (per patient chronic). Otherwise normal throughout. Reflexes (right/left): 2+ throughout uppers while patellars are 3+ and ankles are 1+ bilaterally.. Plantars is upgoing at baseline over the left and mute over the right. WORK-UP: Hemoglobin A1c is 14.8 Vitamin B12 is 623 Serum folate was more than 20 CT of the head is reported as no acute intracranial hemorrhage or midline shift. There is mild to moderate diffuse cerebral atrophy and mild chronic small vessel ischemic change along with old right MCA distribution infarct R old redemonstrated. No significant change from prior CT. I personally reviewed the CT of the head and I don't see any acute subacute changes or any intraparenchymal hemorrhage that is appreciable. The patient had right MCA stroke and and the last CT wasn't 2013 and the right MCA stroke was a noted there. CT angiography of the head and neck was reported as no significant stenosis and common or internal carotid artery bilaterally. No aneurysm or significant stenosis level poarch of [place]. MR the brain is reported as no MRI evidence for recent infarct. Also moderate diffuse cerebral atrophy and mild chronic small vessel ischemic change with old right MCA distribution infarct. - Labs CBC & Chem 7: 08/08/21 07:31 08/08/21 07:31 Labs: Abnormal Lab Results - Last 24 Hours (Table) 08/08/21 08/08/21 08/08/21 Range/Units 07:31 16:23 20:07 POC Glucose (mg/dL) 257 H 353 H (75-99) mg/dL Hemoglobin A1c 14.8 H (4.0-6.0) % 08/09/21 08/09/21 08/09/21 Range/Units 06:12 10:30 11:50 POC Glucose (mg/dL) 208 H 323 H 264 H (75-99) mg/dL Hemoglobin A1c (4.0-6.0) % Assessment and Plan Assessment: * Paresthesia of the left face that presented day prior to presenting to hospital associated with teeth pain: Possibly seems gingival abscess within the left upper maxilla. No acute or subacute stroke on MRI. 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 The patient is on Lipitor 20 mg daily at bedtime which is sufficient for secondary stroke prophylaxis On every 4 hours neuro checks Oromaxillaryfacial specialist is on consult. We'll defer the rest of the medical management to the primary team. Patient was counseled on medication compliance. Upon discharge the patient needs to follow-up with his neurologist within 1-2 weeks. The plan is discussed with the patient, his (who is at bedside) and his nurse. There is no further neurological work-up. Please notify neurology if any fur ther concerns. Drake Vivar M.D. Neuro-hospitalist Time with Patient: Less than 30
[2021-08-09 16:46] LABS: Glucose,Whole Blood 401 mg/dL (75-99)
[2021-08-09] MEDS: LOSARTAN 25 MG TAB PO SCH (20:18)
[2021-08-09] MEDS: ATORVASTATIN 20 MG TAB PO SCH (20:18)
[2021-08-09] MEDS: TAMSULOSIN 0.4 MG CAP.ER.24H PO SCH (20:18)
[2021-08-09] MEDS: ASPIRIN 325 MG TAB PO SCH (20:18)
[2021-08-09 20:37] LABS: Glucose,Whole Blood 370 mg/dL (75-99)
[2021-08-09] MEDS: INSULIN DETEMIR (LEVEMIR) 100 UNIT/ML SYR SQ SCH (20:48)
--- NOTE | 2021-08-10 04:00 | P.PN ---
Subjective Progress Note Date: 08/09/21 This is a 66-year-old male who was recently admitted with some weakness that had progressively been getting worse over the last few days along with some numbness and left side weakness and deficits noted. Neurology following the patient an MRI is ordered of the brain. Blood sugars improving and will continue with current regimen of sliding scale and long-acting and continued Accu-Cheks before meals and at bedtime closely. PT/OT evaluate the patient for continued weakness. Patient having some left-sided gum and teeth sensitivities with some swelling and erythema noted to the gums with no obvious abscess or deformity noted. We will consult dentist and start the patient on IV Unasyn. Await brain MRI. Patient also continues with low-grade temps and will continue to monitor closely. 08/09/2021 Patient is seen and evaluated in follow up this morning and is being closely monitored. Neurology following and dentist Dr. Nguyễn also following for possible abscess or tooth infection and has ordered facial CT which is pending. Patient was started on IV zosyn and states is feeling much better. Infectious disease to be consulted as patient continues with low grade temps. There is some continued redness and swelling of the gums and signs of purulence is noted just under the skin. No surgical intervention planned at this time. Will repeat am labs. Blood sugars have been elevated and will increase long acting. Patient takes depression medications and will consult psychiatry. Patient denies any suicidal thoughts or ideations of wanting to harm himself or others. Review of systems: Constitutional: No reports of fatigue, fever, or chills Cardiovascular: No reports of chest pain or palpitations Respiratory: No reports of shortness of breath or cough GI: No reports of nausea, vomiting, or diarrhea : No reports of dysuria or retention Neurovascular: reports left-sided facial pain and swelling with some improvement. All medications have been reviewed Active Medications Hydrocodone Bitart/Acetaminophen (Hydrocodone/Apap 5-325mg 1 Each Tab) 1 each PO Q6HR PRN PRN Reason: Pain Last Admin: 08/08/21 20:11 Dose: 1 each Documented by: Aspirin (Aspirin 325 Mg Tab) 325 mg PO HS [facility] Last Admin: 08/08/21 20:11 Dose: 325 mg Documented by: Atorvastatin Calcium (Atorvastatin 20 Mg Tab) 20 mg PO HS [facility] Last Admin: 08/08/21 20:11 Dose: 20 mg Documented by: Duloxetine HCl (Duloxetine Hcl 30 Mg Capsule.Dr) 30 mg PO BID [facility] Last Admin: 08/09/21 08:31 Dose: 30 mg Documented by: Ampicillin Sodium/Sulbactam (Sodium 3 gm/ Sodium Chloride) 100 mls @ 200 mls/hr IVPB Q6HR [facility] Last Admin: 08/09/21 12:31 Dose: 200 mls/hr Documented by: Insulin Aspart (Insulin Aspart (Novolog) 100 Unit/Ml Vial) 0 unit SQ AC-TID [facility]; Protocol Last Admin: 08/09/21 12:31 Dose: 5 unit Documented by: Insulin Detemir (Insulin Detemir (Levemir) 100 Unit/Ml Syr) 40 unit SQ [facility] Last Admin: 08/08/21 23:00 Dose: 40 unit Documented by: Losartan Potassium (Losartan 25 Mg Tab) 25 mg PO [facility] Last Admin: 08/08/21 20:11 Dose: 25 mg Documented by: Metformin HCl (Metformin 500 Mg Tab) 1,000 mg PO BID [facility] Last Admin: 08/09/21 08:31 Dose: 1,000 mg Documented by: Miscellaneous Information (Magnesium Replacement Protocol 1 Each Misc) 1 each MISCELLANE DAILY PRN; Protocol PRN Reason: Per Protocol Miscellaneous Information (Potassium Replacement Protocol 1 Each Misc) 1 each MISCELLANE DAILY PRN PRN Reason: Per Protocol Morphine Sulfate (Morphine Sulfate 4 Mg/Ml Syringe) 4 mg IVP Q4HR PRN PRN Reason: Pain/Discomfort Last Admin: 08/08/21 15:36 Dose: 4 mg Documented by: Paroxetine HCl (Paroxetine 10 Mg Tab) 30 mg PO DAILY [facility] Last Admin: 08/09/21 08:31 Dose: 30 mg Documented by: Pregabalin (Pregabalin 100 Mg Cap) 200 mg PO [facility] Last Admin: 08/08/21 20:11 Dose: 200 mg Documented by: Pregabalin (Pregabalin 100 Mg Cap) 400 mg PO DAILY [facility] Last Admin: 08/09/21 08:31 Dose: 400 mg Documented by: Tamsulosin HCl (Tamsulosin 0.4 Mg Cap.Er.24h) 0.4 mg PO [facility] Last Admin: 08/08/21 20:11 Dose: 0.4 mg Documented by: Physical exam: Gen: This is 66-year-old male who is awake, alert and oriented 3, well-develop ed, well-nourished.. temp is 99.1, pulse is 98, respirations are 18, blood pressure 120/63, oxygen saturation is 99% on room air HEENT: Head is atraumatic, normocephalic. Pupils equal, round. Sclerae is anicteric. Left upper gum swelling with redness NECK: Supple. No JVD. No lymphadenopathy. No thyromegaly. LUNGS: Breath sounds are diminished at the bases with wheezing or rhonchi noted. No intercostal retractions. HEART: S1, S2 are muffled ABDOMEN: Soft. Obese. Bowel sounds are present. No masses. No tenderness. EXTREMITIES: No pedal edema. No calf tenderness. NEUROLOGICAL: Alert and oriented 3, left-sided facial swelling noted and strength is 4-5 on the left, 5-5 on the right, swelling mildly improved Assessment: Weakness and dizziness over the left side of the body, rule out acute stroke diabetes mellitus type 2, uncontrolled with hyperglycemia with mild acute diabetic ketoacidosis Possible left-sided tooth abscess or infection of upper jaw or possible left side herpes zoster hyponatremia mild metabolic acidosis, compensated history of CVA, TIA Diabetes mellitus, type II Hypertension Hyperlipidemia history of prostate disorder history benign prostatic hypertrophy history of anxiety, depression Full code Plan: Recommend to continue with current medications and management and symptomatic treatment. Continues with some left side facial swelling and pain and has been evalutated by dr. Nguyễn dentist and CT facial ordered. Patient to continue with IV antibiotics and ID consulted for continued fevers and possible underlying infection. Blood sugars continue to be elevated and will increase long acting and continue with sliding scale. Patient does have history of anxiety and depression and takes medications and feels the depression medications need adjusting and will consult psychiatry and appreciate their input and recommendations. Encouraged increased activity as tolerated. Due to multiple complex medical issues prognosis is guarded. Will Continue to monitor closely and repeat labs. Objective - Vital Signs Vital signs: Vital Signs Temp 97.2 F L 08/09/21 04:00 Pulse 97 08/09/21 04:00 Resp 18 08/09/21 04:00 BP 130/67 08/09/21 04:00 Pulse Ox 98 08/09/21 04:00 Intake & Output 08/08/21 08/09/21 08/09/21 18:59 06:59 18:59 Intake Total 476 100 Balance 476 100 Weight 89.4 kg 88.7 kg Intake: Intake, IV Titration 100 Amount Ampicillin-Sulbactam 3 gm 100 In Sodium Chloride 0.9% 100 ml @ 200 mls/hr IVPB Q6HR [facility] Rx#:[id number] Oral 476 Other: # Voids 2 1 - Labs CBC & Chem 7: 08/08/21 07:31 08/08/21 07:31 Labs: Abnormal Lab Results - Last 24 Hours (Table) 08/08/21 08/08/21 08/08/21 Range/Units 07:31 11:19 16:23 POC Glucose (mg/dL) 164 H 257 H (75-99) mg/dL Hemoglobin A1c 14.8 H (4.0-6.0) % 08/08/21 08/09/21 Range/Units 20:07 06:12 POC Glucose (mg/dL) 353 H 208 H (75-99) mg/dL Hemoglobin A1c (4.0-6.0) %
[2021-08-10] MEDS: AMPICILLIN-SULBACTAM 3 GM in SODIUM CHLORIDE 0.9% 100 ML IVPB SCH ×3 (06:13→17:42)
[2021-08-10 06:36] LABS: Glucose,Whole Blood 174 mg/dL (75-99)
[2021-08-10] MEDS: INSULIN ASPART (NovoLOG) 100 UNIT/ML VIAL SQ SCH ×4 (06:52→20:56)
[2021-08-10 08:41] LABS: Basophils % (A) 1 %; Eosinophils # (A) 0.1 k/uL (0-0.7); Eosinophils % (A) 2 %; HCT 41.6 % (39.0-53.0); HGB 13.8 gm/dL (13.0-17.5); Lymphocytes # (A) 1.1 k/uL (1.0-4.8); Lymphocytes % (A) 22 %; MCH 28.6 pg (25.0-35.0); MCHC 33.1 g/dL (31.0-37.0); MCV 86.4 fL (80.0-100.0); Mean Platelet Volume 8.5; Monocytes # (A) 0.3 k/uL (0-1.0); Monocytes % (A) 6 %; Neutrophils # (A) 3.4 k/uL (1.3-7.7); Neutrophils % (A) 67 %; Platelet Count 231 k/uL (150-450); RBC 4.82 m/uL (4.30-5.90); RDW 13.1 % (11.5-15.5); WBC 5.1 k/uL (3.8-10.6)
[2021-08-10] MEDS: PARoxetine 10 MG TAB PO SCH (09:05)
[2021-08-10] MEDS: metFORMIN 500 MG TAB PO SCH ×2 (09:05→20:56)
[2021-08-10] MEDS: DULoxetine HCL 30 MG CAPSULE.DR PO SCH (09:05)
[2021-08-10] MEDS: PREGABALIN 100 MG CAP PO SCH ×2 (09:05→20:55)
[2021-08-10 09:07] LABS: African American GFR (CKD) >90 (>60 ml/min/1.73 sqM); Anion Gap 8 mmol/L; Blood Urea Nitrogen 17 mg/dL (9-20); Calcium 9.3 mg/dL (8.4-10.2); Carbon Dioxide 30 mmol/L (22-30); Chloride 103 mmol/L (98-107); Glucose 114 mg/dL (74-99); Magnesium 1.8 mg/dL (1.6-2.3); Non-African American GFR(CKD) >90 (>60 ml/min/1.73 sqM); Potassium 3.7 mmol/L (3.5-5.1); Sodium 141 mmol/L (137-145)
[2021-08-10 11:55] LABS: Glucose,Whole Blood 214 mg/dL (75-99)
[2021-08-10] MEDS ORDERED: busPIRone HCl 10 MG TAB PO PRN (12:48)
[2021-08-10] MEDS ORDERED: busPIRone HCl 10 MG TAB PO STA (12:48)
--- NOTE | 2021-08-10 12:54 | P.CN ---
Psychiatric Consult - . 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 He has 3 children who are grown. REASON FOR REFERRAL: Psychiatry was consulted for depression HISTORY OF PRESENT ILLNESS: The patient presented to the hospital on 08/07 for decrease in energy and fatigue feeling lightheaded for the past 3 days. Patient's blood sugars were significantly elevated and was found to be in mild DKA. Patient has a history of stroke with a right sided weakness. Patient was seen today sitting in his room with his and agreeable to speak to sba underwriter. Patient claims that he is doing better now in terms of his symptoms and claims that his blood sugars up and under better control. He spoke about having a repeat MRI and looked better. He states that this may have been caused by a tooth infection which she did not know about. He claims that his mood has been "angry and irritable" at times. He states that he is taking Paxil and Cymbalta daily. He claims that he is followed by a nurse practitioner at his primary care office. He states that he used to go to a counselor several years ago however he does not do this any longer. 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 He states that his sleep has been "restless". He claims that his appetite has been fair. He states that he does have some anxiety at times. . At this time patient denies any suicidal or homical ideations, intent or plan. Patient denies any auditory, visual hallucin ations and denies any paranoia or delusions. Patients admits to using no recreational drugs or cigarettes. He states that he drinks alcohol occasionally. PAST PSYCHIATRIC HISTORY: Patient has a a history of anxiety and depression. Cymbalta and Paxil. His medications are prescribed by a nurse practitioner at his primary care doctor's office. Patient denies any previous psychiatric hospitalizations. He states that he used to follow up with a counselor named Jeanie however does not do that any longer. Patient denies any history of suicide attempts in the past. Past Medical History: CVA/TIA, Diabetes Mellitus, Hyperlipidemia, Hypertension, Prostate Disorder Additional Past Medical History / Comment(s): bph ALLERGIES: as per EMR. CHEMICAL DEPENDENCY HISTORY: as per HPI. FAMILY PSYCHIATRIC/SUBSTANCE USE HISTORY: denies SOCIAL HISTORY: Patient was born and raised in [place]. He states that he completed high school. He claims that he does not have any legal history. He has a tolliver and he is currently and has 3 kids.. MENTAL STATUS EXAM: General Appearance: Patient appears to be stated age is alert, pleasant, and cooperative. Patient appears to have fair hygiene and grooming wearing hospital gown with fair eye contact. Behavior: Patient is calmly lying in bed without any agitated behavior. Speech: Patient's speech is fluent and nonpressured. Mood/Affect: Patient reports their mood is "angry and irritable", affect is congruent Suicidality/Homicidality: Patient denies having any suicidal or homicidal ideation intent or plan. Perceptions: Patient denies any visual hallucinations and denies any auditory hallucinations Though content/process: There is no evidence of any delusional thought content and thought process is linear and goal-directed. Future oriented Memory and concentration: AOX3, grossly intact for the purposes of this session. Can spell "WORLD" backwards Judgment and insight: fair IMPRESSIONS: Major depressive disorder, mild PLAN: -At this time patient DOES NOT meet criteria for inpatient psychiatric admission. -Delirium precautions recommended with patient including - avoiding use of narcotics and DUMB WAITER OPERATOR sedatives, limit anticholinergic medications when possible, frequent re-orientation, minimize use of restraints, open window shades during the day and close them at night -Would recommend the following medication changes/additions: Will discontinue Paxil at this time as patient is on 2 antidepressants. Will increase Cymbalta to 30 mg daily +60 mg daily at bedtime for mood/anxiety. Added BuSpar 10 mg 3 times a day when necessary for anxiety. Melatonin 5 mg daily at bedtime for insomnia. -draw off worker to provide patient with outpatient mental health/psychiatry resources for appropriate follow up upon discharge -Will continue to follow along -Please contact with any questions. 08/10/21 12:49
[2021-08-10 16:50] LABS: Glucose,Whole Blood 279 mg/dL (75-99)
[2021-08-10 20:23] LABS: Glucose,Whole Blood 331 mg/dL (75-99)
[2021-08-10] MEDS: ASPIRIN 325 MG TAB PO SCH (20:55)
[2021-08-10] MEDS: LOSARTAN 25 MG TAB PO SCH (20:56)
[2021-08-10] MEDS: ATORVASTATIN 20 MG TAB PO SCH (20:56)
[2021-08-10] MEDS: TAMSULOSIN 0.4 MG CAP.ER.24H PO SCH (20:56)
[2021-08-10] MEDS ORDERED: MELATONIN 5 MG TABLET PO SCH (21:00)
[2021-08-10] MEDS ORDERED: INSULIN DETEMIR (LEVEMIR) 100 UNIT/ML SYR SQ SCH (21:00)
[2021-08-10] MEDS ORDERED: DULoxetine HCL 60 MG CAPSULE.DR PO SCH (21:00)
--- NOTE | 2021-08-10 22:59 | PN ---
PROGRESS NOTE DATE OF SERVICE: 08/10/2021 REASON FOR FOLLOWUP: Left-sided facial cellulitis. INTERVAL HISTORY: The patient is afebrile. The patient is currently feeling better. Left-sided facial swelling and redness has improved. No chest pain, shortness of breath or cough. No abdominal pain or diarrhea. PHYSICAL EXAMINATION: Blood pressure 135/58 with a pulse of 74, temperature 99.3. He is 94% on room air. General description is an elderly male lying in bed in no distress. Respiratory system: Unlabored breathing, clear to auscultation anteriorly. Heart S1, S2. Regular rate and rhythm. Abdomen soft, no tenderness. Left-sided facial swelling and redness has improved. DIAGNOSTIC IMPRESSION AND PLAN: Patient with left-sided facial cellulitis, possibly related to an infected tooth. CT did not show any abscess or collection. Patient is covered with Unasyn. Transition to oral antibiotic on discharge. Continue supportive care. MMODL / IJN: [id number] /
[2021-08-11] MEDS: AMPICILLIN-SULBACTAM 3 GM in SODIUM CHLORIDE 0.9% 100 ML IVPB SCH ×3 (00:12→12:40)
[2021-08-11 00:57] VITALS: RESP 16
--- NOTE | 2021-08-11 01:07 | P.PN ---
Subjective Progress Note Date: 08/10/21 This is a 66-year-old male who was recently admitted with some weakness that had progressively been getting worse over the last few days along with some numbness and left side weakness and deficits noted. Neurology following the patient an MRI is ordered of the brain. Blood sugars improving and will continue with current regimen of sliding scale and long-acting and continued Accu-Cheks before meals and at bedtime closely. PT/OT evaluate the patient for continued weakness. Patient having some left-sided gum and teeth sensitivities with some swelling and erythema noted to the gums with no obvious abscess or deformity noted. We will consult dentist and start the patient on IV Unasyn. Await brain MRI. Patient also continues with low-grade temps and will continue to monitor closely. 08/09/2021 Patient is seen and evaluated in follow up this morning and is being closely monitored. Neurology following and dentist Dr. Nguyễn also following for possible abscess or tooth infection and has ordered facial CT which is pending. Patient was started on IV zosyn and states is feeling much better. Infectious disease to be consulted as patient continues with low grade temps. There is some continued redness and swelling of the gums and signs of purulence is noted just under the skin. No surgical intervention planned at this time. Will repeat am labs. Blood sugars have been elevated and will increase long acting. Patient takes depression medications and will consult psychiatry. Patient denies any suicidal thoughts or ideations of wanting to harm himself or others. 08/10/2021 Patient is seen in follow up today and states the facial pain and swelling is significantly improved. Patient was evaluated by ID and dental and underwent facial ct that was negative for abscess of the left upper gum. Patient is maintained on IV zosyn and will transition to oral on discharge. blood culture negative. Patient blood sugars slightly improved with increase in long acting and will continue current regimen. Patient was also evaluated by psychiatry for medication adjustments for depression/anxiety. No chest pain or palpitations noted. Afebrile. Tolerating diet and able to eat on the left side now. Labs: White blood count is 5.1, hemoglobin is 13.8, platelets are 231, sodium is 141, potassium is 3.7, creatinine is 0.65, magnesium is 1.8, calcium is 9.3 Review of systems: Constitutional: No reports of fatigue, fever, or chills Cardiovascular: No reports of chest pain or palpitations Respiratory: No reports of shortness of breath or cough GI: No reports of nausea, vomiting, or diarrhea : No reports of dysuria or retention Neurovascular: reports left-sided facial pain and swelling with significant improvement. All medications have been reviewed Active Medications Hydrocodone Bitart/Acetaminophen (Hydrocodone/Apap 5-325mg 1 Each Tab) 1 each PO Q6HR PRN PRN Reason: Pain Last Admin: 08/08/21 20:11 Dose: 1 each Documented by: Aspirin (Aspirin 325 Mg Tab) 325 mg PO [facility] Last Admin: 08/09/21 20:18 Dose: 325 mg Documented by: Atorvastatin Calcium (Atorvastatin 20 Mg Tab) 20 mg PO [facility] Last Admin: 08/09/21 20:18 Dose: 20 mg Documented by: Buspirone HCl (Buspirone Hcl 10 Mg Tab) 10 mg PO TID PRN PRN Reason: Anxiety Duloxetine HCl (Duloxetine Hcl 60 Mg Capsule.Dr) 60 mg PO [facility] Duloxetine HCl (Duloxetine Hcl 30 Mg Capsule.Dr) 30 mg PO DAILY [facility] Ampicillin Sodium/Sulbactam (Sodium 3 gm/ Sodium Chloride) 100 mls @ 200 mls/hr IVPB Q6HR [facility] Last Admin: 08/10/21 12:30 Dose: 200 mls/hr Documented by: Insulin Aspart (Insulin Aspart (Novolog) 100 Unit/Ml Vial) 0 unit SQ [facility]; Protocol Last Admin: 08/10/21 12:30 Dose: 3 unit Documented by: Insulin Detemir (Insulin Detemir (Levemir) 100 Unit/Ml Syr) 50 unit SQ [facility] Losartan Potassium (Losartan 25 Mg Tab) 25 mg PO [facility] Last Admin: 08/09/21 20:18 Dose: 25 mg Documented by: Melatonin (Melatonin 5 Mg Tablet) 5 mg PO [facility] Metformin HCl (Metformin 500 Mg Tab) 1,000 mg PO BID [facility] Last Admin: 08/10/21 09:05 Dose: 1,000 mg Documented by: Miscellaneous Information (Magnesium Replacement Protocol 1 Each Misc) 1 each MISCELLANE DAILY PRN; Protocol PRN Reason: Per Protocol Miscellaneous Information (Potassium Replacement Protocol 1 Each Misc) 1 each M ISCELLANE DAILY PRN PRN Reason: Per Protocol Morphine Sulfate (Morphine Sulfate 4 Mg/Ml Syringe) 4 mg IVP Q4HR PRN PRN Reason: Pain/Discomfort Last Admin: 08/08/21 15:36 Dose: 4 mg Documented by: Pregabalin (Pregabalin 100 Mg Cap) 200 mg PO [facility] Last Admin: 08/09/21 20:17 Dose: 200 mg Documented by: Pregabalin (Pregabalin 100 Mg Cap) 400 mg PO DAILY [facility] Last Admin: 08/10/21 09:05 Dose: 400 mg Documented by: Tamsulosin HCl (Tamsulosin 0.4 Mg Cap.Er.24h) 0.4 mg PO [facility] Last Admin: 08/09/21 20:18 Dose: 0.4 mg Documented by: Physical exam: Gen: This is 66-year-old male who is awake, alert and oriented 3, well- developed, well-nourished.. temp is 98.8, pulse is 91, respirations are 18, blood pressure 111/60, oxygen saturation is 97% on room air HEENT: Head is atraumatic, normocephalic. Pupils equal, round. Sclerae is anicteric. Left upper gum swelling with redness NECK: Supple. No JVD. No lymphadenopathy. No thyromegaly. LUNGS: Breath sounds are diminished at the bases with wheezing or rhonchi noted. No intercostal retractions. HEART: S1, S2 are muffled ABDOMEN: Soft. Obese. Bowel sounds are present. No masses. No tenderness. EXTREMITIES: No pedal edema. No calf tenderness. NEUROLOGICAL: Alert and oriented 3, left-sided facial swelling improved. strength lead front end developer bilaterally equal and 5/5 Assessment: Weakness and dizziness over the left side of the body, ruled out acute stroke, possible TIA diabetes mellitus type 2, uncontrolled with hyperglycemia with mild acute diabetic ketoacidosis Possible left-sided tooth abscess or infection of upper jaw hyponatremia, improved mild metabolic acidosis, compensated history of CVA, TIA Diabetes mellitus, type II Hypertension Hyperlipidemia history of prostate disorder history benign prostatic hypertrophy history of anxiety, depression Full code Plan: Recommend to continue with current medications and management and symptomatic treatment. left side facial swelling and pain has improved. ID following along with dental and neurology. No further neurological work up noted and will need outpatient follow up. CT facial negative for abscess and maintained on IV zosyn and will transition to oral on discharge. Afebrile. Blood sugars mildly improved with increasing the long acting and will continue with sliding scale. Patient evaluated by psych and adjustments to antidepressants being made. Encouraged increased activity as tolerated. Due to multiple complex medical issues prognosis is guarded. Will Continue to monitor closely. Possible discharge in 24 hours. Objective - Vital Signs Vital signs: Vital Signs Temp 97.2 F L 08/10/21 04:00 Pulse 80 08/10/21 04:00 Resp 17 08/10/21 04:00 BP 136/74 08/10/21 04:00 Pulse Ox 99 08/10/21 04:00 Intake & Output 08/09/21 08/10/21 08/10/21 18:59 06:59 18:59 Intake Total 10 118 Balance 10 118 Intake: IV 10 Invasive Line 3 10 Oral 118 Other: # Voids 1 1 - Labs CBC & Chem 7: 08/10/21 07:48 08/10/21 07:48 Labs: Abnormal Lab Results - Last 24 Hours (Table) 08/09/21 08/09/21 08/09/21 Range/Units 10:30 11:50 16:44 POC Glucose (mg/dL) 323 H 264 H 401 H (75-99) mg/dL 08/09/21 08/10/21 Range/Units 20:30 06:24 POC Glucose (mg/dL) 370 H 174 H (75-99) mg/dL Microbiology - Last 24 Hours (Table) 08/08/21 15:20 Blood Culture - Preliminary Blood No Growth after 24 hours
[2021-08-11 06:04] LABS: Glucose,Whole Blood 212 mg/dL (75-99)
[2021-08-11] MEDS: INSULIN ASPART (NovoLOG) 100 UNIT/ML VIAL SQ SCH ×2 (06:39→12:42)
--- NOTE | 2021-08-11 07:48 | P.PN ---
Progress Note - Text Progress Note Date: 08/11/21 S: Patient up in bed eating breakfast in good spirits. States he feels much better minimal tooth pain today. 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 O: Patient's mouth appeared in good health with mild gingival swelling adjacent to tooth #10. Difficult to ascertain any color change but possibly tooth #10 appears darker. Percussion of tooth numbers 910 and 11 showed #10 to be the most sensitive to percussion. No evidence of foreign body or any hard material on palpation of the gums. Reviewed the CAT scan and noticed a slight radial lucency surrounding tooth #10. There is no evidence of foreign body on the CAT scan. A: Possibly D vital tooth #10 with associated periapical abscess. P: Recommend outpatient evaluation for possible need for root canal on tooth #10 to his lack of decay seems unlikely that the tooth would need to be extracted. Outpatient antibiotic therapy seems appropriate. Patient instructed to follow-up with my office this week or next week early for number given. Patient states his is artery planning to call to make an appointment today. Oral surgery signing off.
[2021-08-11 08:23] VITALS: TEMP 98.3
[2021-08-11] MEDS: PREGABALIN 100 MG CAP PO SCH (08:26)
[2021-08-11] MEDS: metFORMIN 500 MG TAB PO SCH (08:27)
[2021-08-11] MEDS ORDERED: DULoxetine HCL 30 MG CAPSULE.DR PO SCH (09:00)
[2021-08-11 11:51] LABS: Glucose,Whole Blood 253 mg/dL (75-99)
[2021-08-11] MEDS ORDERED: busPIRone HCl 10 MG TAB PO PRN (11:57)
--- NOTE | 2021-08-11 12:01 | P.PN ---
Progress Note - Text Progress Note Date: 08/11/21 Interval History: Patient was seen today for psychiatric follow-up regarding patient's depression and anxiety. Patient was sitting in the room with his . He appears to have a improvement in his affect today. He claims that his tooth is feeling much better today. He states that he was seen by the dentist today and will be following up with him for possible root canal versus extraction. He states that his blood sugars are better under control today. He claims that his mood and anxiety of an improving. He asked questions about his medications and also different clinics to follow-up with for his mental health. He appears to be fairly future oriented. Improvement in hygiene and grooming today. At this time patient denies any suicidal or homical ideations, intent or plan. Patient denies any auditory, visual hallucinations and denies any paranoia or delusions. Patient denies any side effects from the medications and has been compliant with meds. Mental Status Exam: General Appearance: Patient appears to be stated age is alert, pleasant, and cooperative. Patient appears to have fair hygiene and grooming wearing hospital gown with fair eye contact. Behavior: Patient is calmly lying in bed without any agitated behavior. Speech: Patient's speech is fluent and nonpressured. Mood/Affect: Patient reports their mood is "better", affect is congruent Suicidality/Homicidality: Patient denies having any suicidal or homicidal ideation intent or plan. Perceptions: Patient denies any visual hallucinations and denies any auditory hallucinations Though content/process: There is no evidence of any delusional thought content and thought process is linear and goal-directed. Future oriented Memory and concentration: AOX3, grossly intact for the purposes of this session. Judgment and insight: fair IMPRESSIONS: Major depressive disorder, mild PLAN: -At this time patient DOES NOT meet criteria for inpatient psychiatric admission. -Delirium precautions recommended with patient including - avoiding use of narcotics and ACUTE CARE PHYSICIAN sedatives, limit anticholinergic medications when possible, frequent re-orientation, minimize use of restraints, open window shades during the day and close them at night -Would recommend the following medication changes/additions: Cymbalta to 30 mg daily +60 mg daily at bedtime for mood/anxiety. changed BuSpar 10 mg two times a day when necessary for anxiety. decrease Melatonin 3 mg daily at bedtime for insomnia. -bridge worker to provide patient with outpatient mental health/psychiatry resources for appropriate follow up upon discharge -At this time psychiatry will sign off. -Please contact with any questions.
[2021-08-11 12:40] VITALS: BP 127/66; PULSE 80
[2021-08-11] MEDS ORDERED: MELATONIN 3 MG TABLET PO SCH (21:00)
--- NOTE | 2021-08-11 21:15 | P.PN ---
Progress Note - Text Progress Note Date: 08/11/21 REASON FOR FOLLOWUP: Left-sided facial cellulitis. INTERVAL HISTORY: The patient remains to be afebrile. The patient is currently feeling better. Left-sided facial swelling and redness has improved. No chest pain, shortness of breath or cough. No abdominal pain or diarrhea. PHYSICAL EXAMINATION: Blood pressure 130/68 with a pulse of 74, temperature 99.3. He is 94% on room air. General description is an elderly male lying in bed in no distress. Respiratory system: Unlabored breathing, clear to auscultation anteriorly. Heart S1, S2. Regular rate and rhythm. Abdomen soft, no tenderness. Left-sided facial swelling and redness has improved. Labs : reviewed DIAGNOSTIC IMPRESSION AND PLAN: Patient with left-sided facial cellulitis, possibly related to an infected tooth #10 with possible periapical abscess , improved with Unasyn. Transition to oral augmentin x 10 days on discharge. Continue supportive care.
--- NOTE | 2021-08-12 09:10 | P.DS ---
Providers Date of admission: 08/07/21 14:16 Expected date of discharge: 08/11/21 Attending physician: Nai Guerra Consults: 08/07/21 14:31 Consult Physician Urgent Consulting Provider: Darke Vivar Consult Reason/Comments: Left facial paresthesias Do you want consulting provider notified?: Yes 08/08/21 14:48 Consult Physician Urgent Consulting Provider: José Nguyễn Consult Reason/Comments: left gum swelling, pain, possible infection Do you want consulting provider notified?: Yes 08/09/21 12:21 Consult Physician Urgent Consulting Provider: Shelly Lester Consult Reason/Comments: left side facial infection? possible dental abscess Do you want consulting provider notified?: Yes 08/09/21 15:08 Consult Physician Routine Consulting Provider: Eugene Morris Consult Reason/Comments: patient request; depression Do you want consulting provider notified?: Yes Primary care physician: [facility] Hospital Course: Final diagnosis Weakness and dizziness over the left side of the body, ruled out acute stroke, possible TIA diabetes mellitus type 2, uncontrolled with hyperglycemia with mild acute diabetic ketoacidosis Possible left-sided tooth abscess or infection of tooth #10 hyponatremia, improved mild metabolic acidosis, compensated history of CVA, TIA Hypertension Hyperlipidemia history of prostate disorder history benign prostatic hypertrophy history of anxiety, depression Full code Discharge disposition Patient is being discharged in a stable condition with guarded prognosis to home. Patient will follow-up with Dr. Perera in the outpatient setting upon discharge. Patient is to also follow-up with dentist Dr. Nguyễn and his neurologist in the outpatient setting. Patient will continue on oral Augmentin twice daily for the next 10 days. Total time taken is greater than 35 minutes. Hospital course This is a 66-year-old male who was recently admitted with some weakness that had progressively been getting worse over the last few days along with some numbness and left side weakness and deficits noted. Neurology following the patient an MRI is ordered of the brain. Blood sugars improving and will continue with current regimen of sliding scale and long-acting and continued Accu-Cheks before meals and at bedtime closely. PT/OT evaluate the patient for continued weakness. Patient having some left-sided gum and teeth sensitivities with some swelling and erythema noted to the gums with no obvious abscess or deformity noted. We will consult dentist and start the patient on IV Unasyn. Await brain MRI. Patient also continues with low-grade temps and will continue to monitor closely. 08/09/2021 Patient is seen and evaluated in follow up this morning and is being closely monitored. Neurology following and dentist Dr. Nguyễn also following for possible abscess or tooth infection and has ordered facial CT which is pending. Patient was started on IV zosyn and states is feeling much better. Infectious disease to be consulted as patient continues with low grade temps. There is some continued redness and swelling of the gums and signs of purulence is noted just under the skin. No surgical intervention planned at this time. Will repeat am labs. Blood sugars have been elevated and will increase long acting. Patient takes depression medications and will consult psychiatry. Patient denies any suicidal thoughts or ideations of wanting to harm himself or others. 08/10/2021 Patient is seen in follow up today and states the facial pain and swelling is significantly improved. Patient was evaluated by ID and dental and underwent facial ct that was negative for abscess of the left upper gum. Patient is maintained on IV zosyn and will transition to oral on discharge. blood culture negative. Patient blood sugars slightly improved with increase in long acting and will continue current regimen. Patient was also evaluated by psychiatry for medication adjustments for depression/anxiety. No chest pain or palpitations noted. Afebrile. Tolerating diet and able to eat on the left side now. 08/11/2021 Patient is seen and evaluated this morning and follow-up feeling significantly better and asking to go home. Patient was evaluated by infectious disease and recommending oral Augmentin twice daily for the next 10 days upon discharge. Discussed with the patient at length about tight glycemic control and continuous monitoring of blood sugars before meals and at bedtime and keeping a diary for primary care follow-up. Patient does have routing equipment tender Dr. Olmedo as well. Adjustments have been made to depression medications and instructed the patient to follow-up with primary care provider to discuss these changes. Patient will also need outpatient follow-up with his neurologist and the dentist as discussed. Currently no reports of chest pain, shortness of breath, or palpitations. Patient is afebrile. No reports of nausea or vomiting and patient is tolerating diet. Patient will be discharged home today. Gen: This is 66-year-old male who is awake, alert and oriented 3, well- developed, well-nourished.. HEENT: Head is atraumatic, normocephalic. Pupils equal, round. Sclerae is anicteric. Left upper gum swelling with redness, significantly improved NECK: Supple. No JVD. No lymphadenopathy. No thyromegaly. LUNGS: Breath sounds are diminished at the bases with wheezing or rhonchi noted. No intercostal retractions. HEART: S1, S2 are muffled ABDOMEN: Soft. Obese. Bowel sounds are present. No masses. No tenderness. EXTREMITIES: No pedal edema. No calf tenderness. NEUROLOGICAL: Alert and oriented 3, left-sided facial swelling improved. strength on site services specialist bilaterally equal and 5/5 Please refer to medication reconciliation sheet for a list of medications. Patient Condition at Discharge: Stable Plan - Discharge Summary New Discharge Prescriptions: New busPIRone HCl [Buspar] 10 mg PO BID PRN 30 Days #60 tab PRN Reason: Anxiety DULoxetine HCL [Cymbalta] 60 mg PO HS #0 capsule Amoxic-Pot Clav 875-125Mg [Augmentin 875-125] 1 tab PO Q12HR 10 Days #20 tab DULoxetine HCL [Cymbalta] 30 mg PO DAILY 30 Days #90 capsule Atorvastatin [Lipitor] 40 mg PO HS 30 Days #30 tab Continue Aspirin 325 mg PO HS Ubidecarenone [Co Q-10] 200 mg PO DAILY Pregabalin [Lyrica] 400 mg PO DAILY Tamsulosin [Flomax] 0.4 mg PO HS Cholecalciferol [Vitamin D3 (25 Mcg = 1000 Iu)] 2,000 unit PO DAILY Pregabalin [Lyrica] 200 mg PO HS metFORMIN HCL [Glucophage] 1,000 mg PO BID INSULIN ASPART (NovoLOG) [NovoLOG (formulary)] See Protocol SQ AC-TID PRN PRN Reason: Blood Pressure - High Losartan Potassium [Cozaar] 25 mg PO HS Changed Insulin Glargine,Hum.rec.anlog [Toujeo Solostar] 50 units SQ HS #0 Discontinued DULoxetine HCL [Cymbalta] 30 mg PO BID PARoxetine HCL [Paxil] 30 mg PO DAILY Simvastatin [Zocor] 40 mg PO HS Discharge Medication List Aspirin 325 mg PO HS 08/20/14 [History] Cholecalciferol [Vitamin D3 (25 Mcg = 1000 Iu)] 2,000 unit PO DAILY 08/20/14 [History] Pregabalin [Lyrica] 400 mg PO DAILY 08/20/14 [History] Tamsulosin [Flomax] 0.4 mg PO HS 08/20/14 [History] Ubidecarenone [Co Q-10] 200 mg PO DAILY 08/20/14 [History] Pregabalin [Lyrica] 200 mg PO HS 05/01/16 [History] INSULIN ASPART (NovoLOG) [NovoLOG (formulary)] See Protocol SQ AC-TID PRN 07/14/17 [History] metFORMIN HCL [Glucophage] 1,000 mg PO BID 07/14/17 [History] Losartan Potassium [Cozaar] 25 mg PO HS 08/07/21 [History] Amoxic-Pot Clav 875-125Mg [Augmentin 875-125] 1 tab PO Q12HR 10 Days #20 tab 08/11/21 [Rx] Atorvastatin [Lipitor] 40 mg PO HS 30 Days #30 tab 08/11/21 [Rx] DULoxetine HCL [Cymbalta] 30 mg PO DAILY 30 Days #90 capsule 08/11/21 [Rx] DULoxetine HCL [Cymbalta] 60 mg PO HS #0 capsule 08/11/21 [Rx] Insulin Glargine,Hum.rec.anlog [Toujeo Solostar] 50 units SQ HS #0 08/11/21 [Rx] busPIRone HCl [Buspar] 10 mg PO BID PRN 30 Days #60 tab 08/11/21 [Rx] Follow up Appointment(s)/Referral(s): José Nguyễn DDS [STAFF PHYSICIAN] - 08/13/21 12:45 pm (Wednesday) Lenka Perera DO [Primary Care Provider] - 08/18/21 10:00 am (Wednesday with [facility] in [place]) Activity/Diet/Wound Care/Special Instructions: Family Limited until follow-up Follow-up with primary care provider Follow-up neurology outpatient Follow-up with dentist Dr. Nguyễn in one week Continue taking antibiotics until finished Continue to monitor Accu-Cheks closely and keep a diary for primary care follow- up Follow-up with your endocrine doctor Continue consistent carb diet Take medications as prescribed. Discharge Disposition: HOME SELF-CARE
== END 2021-08-11 15:47 | disposition home or self-care (01) | DRG 638 ==
LOC: EC 12:12 → 3SCARD 14:16
PROVIDERS: ADMIT Hospitalist; ATTEND Hospitalist
DX: E11.10 Type 2 diabetes mellitus with ketoacidosis without coma (principal); E87.1 Hypo-osmolality and hyponatremia; I69.354 Hemiplegia and hemiparesis following cerebral infarction affecting left non-dominant side; L03.211 Cellulitis of face; E11.40 Type 2 diabetes mellitus with diabetic neuropathy, unspecified; E66.9 Obesity, unspecified; E78.5 Hyperlipidemia, unspecified; F32.9 Major depressive disorder, single episode, unspecified; F41.9 Anxiety disorder, unspecified; I10 Essential (primary) hypertension; K05.219 Aggressive periodontitis, localized, unspecified severity; N40.0 Benign prostatic hyperplasia without lower urinary tract symptoms; Z79.82 Long term (current) use of aspirin; Z79.84 Long term (current) use of oral hypoglycemic drugs; Z79.899 Other long term (current) drug therapy; Z80.9 Family history of malignant neoplasm, unspecified; Z82.49 Family history of ischemic heart disease and other diseases of the circulatory system; Z82.5 Family history of asthma and other chronic lower respiratory diseases; Z83.3 Family history of diabetes mellitus; Z91.14 Patient's other noncompliance with medication regimen
CPT/HCPCS: 36415; 70450; 70488; 70496; 70498; 70553; 71045; 80048; 80051; 80053; 81003; 82009; 82565; 82607; 82746; 82803; 82947; 83036; 83735; 84100; 84484; 84520; 85025; 85610; 85730; 87040; 87635; 93005; 96360; 99285

== ENCOUNTER 2022-09-09 13:59 | Emergency (ER) | payer MEDICARE, OTHER ==
[2022-09-09] MEDS ORDERED: methylPREDNISolone SOD SUCCI 125 MG/2 ML VIAL IM ONE (16:17)
--- NOTE | 2022-09-09 16:54 | ED ---
Extremity Problem HPI - General Chief complaint: Extremity Problem,Nontraumatic Stated complaint: Foot Pain Time Seen by Provider: 09/09/22 16:10 Source: patient Mode of arrival: ambulatory Limitations: no limitations - History of Present Illness Initial comments: Patient is a 59-year-old presenting to the emergency room with complaints of bilateral heel pain ongoing for some time with worsening severity today. 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 He has inserts in his boots but has not had the modified in quite some time. He denies any trauma to his feet. He denies any swelling or range of motion impairment. He is not taking any medication to help treat the symptoms. He denies any redness or swelling. He denies any other acute complaints or concerns this time including any chest pain, shortness of breath, abdominal pain, fevers or chills. In addition to his past medical history of plantar fasciitis his past medical history significant for CVA, diabetes, hypertension, hyperlipidemia and BPH. - Related Data Home Medications Medication Instructions Recorded Confirmed Aspirin 325 mg PO HS 08/20/14 08/07/21 Cholecalciferol [Vitamin D3 (25 2,000 unit PO DAILY 08/20/14 08/07/21 Mcg = 1000 Iu)] Pregabalin [Lyrica] 400 mg PO DAILY 08/20/14 08/07/21 Tamsulosin [Flomax] 0.4 mg PO HS 08/20/14 08/07/21 Ubidecarenone [Co Q-10] 200 mg PO DAILY 08/20/14 08/07/21 Pregabalin [Lyrica] 200 mg PO HS 05/01/16 08/07/21 INSULIN ASPART (NovoLOG) [NovoLOG See Protocol SQ AC-TID PRN 07/14/17 08/07/21 (formulary)] metFORMIN HCL [Glucophage] 1,000 mg PO BID 07/14/17 08/07/21 Losartan Potassium [Cozaar] 25 mg PO HS 08/07/21 08/07/21 Previous Rx's Medication Instructions Recorded Amoxic-Pot Clav 875-125Mg 1 tab PO Q12HR 10 Days #20 tab 08/11/21 [Augmentin 875-125] Atorvastatin [Lipitor] 40 mg PO HS 30 Days #30 tab 08/11/21 DULoxetine HCL [Cymbalta] 30 mg PO DAILY 30 Days #90 capsule 08/11/21 DULoxetine HCL [Cymbalta] 60 mg PO HS #0 capsule 08/11/21 Insulin Glargine,Hum.rec.anlog 50 units SQ HS #0 08/11/21 [Touarnol Solostar] busPIRone HCl [Buspar] 10 mg PO BID PRN 30 Days #60 tab 08/11/21 predniSONE [Deltasone] 20 mg PO DIRECTED 5 Days #10 tab 09/09/22 Allergies Allergy/AdvReac Type Severity Reaction Status Date / Time cephalexin monohydrate AdvReac Vomiting Verified 09/09/22 14:23 [From Keflex] venlafaxine [From Effexor] AdvReac Rapid Verified 09/09/22 14:23 Heart Rate Review of Systems ROS Statement: Those systems with pertinent positive or pertinent negative responses have been documented in the HPI. ROS Other: All systems not noted in ROS Statement are negative. Past Medical History Past Medical History: CVA/TIA, Diabetes Mellitus, Hyperlipidemia, Hypertension, Prostate Disorder Additional Past Medical History / Comment(s): bph History of Any Multi-Drug Resistant Organisms: None Reported Past Surgical History: No Surgical Hx Reported Additional Past Surgical History / Comment(s): right endarderectomy Past Anesthesia/Blood Transfusion Reactions: No Reported Reaction Past Psychological History: Anxiety, Depression Smoking Status: Never smoker Past Alcohol Use History: Occasional Past Drug Use History: None Reported - Past Family History Father Family Medical History: Cancer Mother History Unknown: Yes Family Medical History: Congestive Heart Failure (CHF), COPD, Coronary Artery Disease (CAD), Diabetes Mellitus, Myocardial Infarction ([place]) General Exam - General Exam Comments Initial Comments: GENERAL: No acute distress, well developed, well nourished. HEENT: Normocephalic, atraumatic. Pupils equal, round, reactive to light. Moist mucous membranes. LUNGS: No respiratory distress or use of accessory muscles. HEART: Regular rate.. ABDOMEN: Non-distended. BACK: Normal inspection. EXTREMITIES: No edema. Moves all extremities. Bilateral feet with good capillary refills. Bilateral feet with tenderness to the arch region without any swelling or range of motion impairment noted. NEUROLOGIC: Alert & oriented x 3. CN II-XII grossly intact. PSYCHIATRIC: Normal affect and behavior. DERMATOLOGIC: Skin intact, without rashes or lesions noted. No diabetic ulcers noted. Limitations: no limitations Course Vital Signs 09/09/22 09/09/22 14:20 17:00 Temperature 97.9 F 98.3 F Pulse Rate 72 64 Respiratory 16 18 Rate Blood Pressure 147/77 123/75 O2 Sat by Pulse 96 98 Oximetry Medical Decision Making - Medical Decision Making 67-year-old woman presenting to the emergency room with complaints of bilateral heel pain ongoing for sometime with persistent severity recently. Personal history of plantar fasciitis with foot inserts and no recent trauma. No indication for diagnostic imaging or laboratory studies at this time in the setting of known plantar fasciitis with classic presentation of symptoms. Will give a dose of sodium Medrol now and place on oral steroids. No taper short c ourse. Encourage monitoring of blood sugars closely and to follow-up with his primary care provider regarding continued evaluation and treatment for plantar fasciitis. Encouraged to contact his manufacturing tech return to the emergency room if any difficulty controlling blood sugars. Will discharge home in stable condition. Case discussed with Dr. Riley. Disposition Clinical Impression: Pain of both heels Disposition: HOME SELF-CARE Condition: Stable Instructions (If sedation given, give patient instructions): Plantar Fasciitis (ED) Additional Instructions: Please complete course of steroid as prescribed. Do not take NSAIDs with steroid course. Please monitor your blood sugars closely and take your sliding scale insulin as prescribed by her manufacturing tech per your readings. May utilize Tylenol [id number] for additional breakthrough pain. Rest improper footwear encouraged. Follow-up with your primary care provider and if following follow with podiatry as well. Please return to the Emergency Department if symptoms worsen or any other concerns. Prescriptions: predniSONE [Deltasone] 20 mg PO DIRECTED 5 Days #10 tab Is patient prescribed a controlled substance at d/c from ED?: No Referrals: Lenka Perera DO [Primary Care Provider] - 1-2 days Time of Disposition: 16:52
[2022-09-09 17:08] VITALS: BP 123/75; PULSE 64; RESP 18; TEMP 98.3
== END 2022-09-09 17:00 | disposition home or self-care (01) ==
LOC: EC 13:59
DX: M79.676 Pain in unspecified toe(s) (principal); E11.9 Type 2 diabetes mellitus without complications; I10 Essential (primary) hypertension; F41.9 Anxiety disorder, unspecified; F32.A Depression, unspecified; Z79.82 Long term (current) use of aspirin; Z79.4 Long term (current) use of insulin; Z79.84 Long term (current) use of oral hypoglycemic drugs; Z79.899 Other long term (current) drug therapy; Z88.1 Allergy status to other antibiotic agents; Z88.5 Allergy status to narcotic agent
CPT/HCPCS: 99283; 96372; J2930

== ENCOUNTER 2022-09-26 00:16 | Emergency (ER) | payer MEDICARE, OTHER ==
[2022-09-26 00:31] VITALS: BP 163/74; PULSE 82; RESP 19; TEMP 98.6
[2022-09-26] MEDS ORDERED: MORPHINE SULFATE 4 MG/ML SYRINGE IM STA (00:39)
--- NOTE | 2022-09-26 01:02 | ED ---
General Adult HPI - General Chief complaint: Extremity Problem,Nontraumatic Stated complaint: pain in hip,left foot Time Seen by Provider: 09/26/22 00:23 Source: patient, RN notes reviewed Mode of arrival: wheelchair - History of Present Illness Initial comments: Patient is a 59-year-old male presenting to the emergency room with complaints of bilateral hip pain and bilateral feet pain left worse than right. He was evaluated and treated for plantar fasciitis after complaints of bilateral heel pain at the end of August. Due to history of previous plantar fasciitis with lack of trauma no diagnostic imaging was completed at that time. He reported some temporary relief of symptoms by steroids in the emergency room and was discharged home on oral steroids. He had followed up with podiatry after discharge and has had steroid injections in his feet unfortunately his pain seems to have continued to worsen and involves his hips along with his feet. He reports that this pain has been ongoing for approximately 1 month and has progressively gotten worse. He denies any trauma or aggravating factors one month ago. He reports that ambulating worsens his symptoms. He reports difficulty in the ability to bend over and states that in May of last year he was able to ambulate well without any difficulties and was still actively farming. He denies any focal neurological deficits, specific weaknesses, bowel or bladder incontinence or other red flag symptoms for cauda equina. He has a past medical history significant for diabetes, CVA with residual left sided weakness and neuropathy, BPH, hypertension and hyperlipidemia. - Related Data Home Medications Medication Instructions Recorded Confirmed Aspirin 325 mg PO HS 08/20/14 08/07/21 Cholecalciferol [Vitamin D3 (25 2,000 unit PO DAILY 08/20/14 08/07/21 Mcg = 1000 Iu)] Pregabalin [Lyrica] 400 mg PO DAILY 08/20/14 08/07/21 Tamsulosin [Flomax] 0.4 mg PO HS 08/20/14 08/07/21 Ubidecarenone [Co Q-10] 200 mg PO DAILY 08/20/14 08/07/21 Pregabalin [Lyrica] 200 mg PO HS 05/01/16 08/07/21 INSULIN ASPART (NovoLOG) [NovoLOG See Protocol SQ AC-TID PRN 07/14/17 08/07/21 (formulary)] metFORMIN HCL [Glucophage] 1,000 mg PO BID 07/14/17 08/07/21 Losartan Potassium [Cozaar] 25 mg PO HS 08/07/21 08/07/21 Previous Rx's Medication Instructions Recorded Amoxic-Pot Clav 875-125Mg 1 tab PO Q12HR 10 Days #20 tab 08/11/21 [Augmentin 875-125] Atorvastatin [Lipitor] 40 mg PO HS 30 Days #30 tab 08/11/21 DULoxetine HCL [Cymbalta] 30 mg PO DAILY 30 Days #90 capsule 08/11/21 DULoxetine HCL [Cymbalta] 60 mg PO HS #0 capsule 08/11/21 Insulin Glargine,Hum.rec.anlog 50 units SQ HS #0 08/11/21 [Toujeo Solostar] busPIRone HCl [Buspar] 10 mg PO BID PRN 30 Days #60 tab 08/11/21 predniSONE [Deltasone] 20 mg PO DIRECTED 5 Days #10 tab 09/09/22 Allergies Allergy/AdvReac Type Severity Reaction Status Date / Time cephalexin monohydrate AdvReac Vomiting Verified 09/26/22 00:31 [From Keflex] venlafaxine [From Effexor] AdvReac Rapid Verified 09/26/22 00:31 Heart Rate Review of Systems ROS Statement: Those systems with pertinent positive or pertinent negative responses have been documented in the HPI. ROS Other: All systems not noted in ROS Statement are negative. Past Medical History Past Medical History: CVA/TIA, Diabetes Mellitus, Hyperlipidemia, Hypertension, Prostate Disorder Additional Past Medical History / Comment(s): bph History of Any Multi-Drug Resistant Organisms: None Reported Past Surgical History: No Surgical Hx Reported Additional Past Surgical History / Comment(s): right endarderectomy Past Anesthesia/Blood Transfusion Reactions: No Reported Reaction Past Psychological History: Anxiety, Depression Smoking Status: Never smoker Past Alcohol Use History: Occasional Past Drug Use History: None Reported - Past Family History Father Family Medical History: Cancer Mother History Unknown: Yes Family Medical History: Congestive Heart Failure (CHF), COPD, Coronary Artery Disease (CAD), Diabetes Mellitus, Myocardial Infarction ([place]) General Exam - General Exam Comments Initial Comments: GENERAL: No acute distress, well developed, well nourished. HEENT: Normocephalic, atraumatic. Pupils equal, round, reactive to light. Moist mucous membranes. LUNGS: No respiratory distress or use of accessory muscles. HEART: Regular rate. ABDOMEN: Non-distended. BACK: Normal inspection. EXTREMITIES: No edema. Tenderness bilateral feet. Moves all extremities. Slight left-sided weakness, chronic. NEUROLOGIC: Alert & oriented x 3. CN II-XII grossly intact. PSYCHIATRIC: Normal affect and behavior. DERMATOLOGIC: Skin intact, without rashes or lesions noted. Course Vital Signs 09/26/22 00:27 Temperature 98.6 F Pulse Rate 82 Respiratory 19 Rate Blood Pressure 163/74 O2 Sat by Pulse 95 Oximetry Medical Decision Making - Medical Decision Making Was pt. sent in by a medical professional or institution (, PA, TOLL TEST DESK WORKER, urgent care, hospital, or care home...) When possible be specific @ -No Did you speak to anyone other than the patient for history (EMS, parent, family, police, friend...)? What history was obtained from this source @ -No Did you review nursing and triage notes (agree or disagree)? Why? @ -I reviewed and agree with nursing and triage notes Were old charts reviewed (outside hosp., previous admission, EMS record, old EKG, old radiological studies, urgent care reports/EKG's, care home records)? Report findings @ -Previous ER visit record reviewed Differential Diagnosis (chest pain, altered mental status, abdominal pain women, abdominal pain men, vaginal bleeding, weakness, fever, dyspnea, syncope, headache, dizziness, GI bleed, back pain, seizure, CVA, palpatations, mental health)? @ -Differential lower extremity Pain: Strain, epidural abscess, vertebral osteomyelitis, discitis, fracture, subluxation, disc herniation, DJD, spinal stenosis, osteoarthritis, this is not meant to be an all-inclusive list. EKG interpreted by me (3pts min.). @ -None done X-rays interpreted by me (1pt min.). @ -X-ray of the lumbar spine reveals no fracture or dislocation. Disc space loss at L4-L5 noted. CT interpreted by me (1pt min.). @ -None done U/S interpreted by me (1pt. min.). @ -None done What testing was considered but not performed or refused? (CT, X-rays, U/S, labs)? Why? @ -X-ray of the left foot considered but deferred due to recent imaging by podiatry that was negative What meds were considered but not given or refused? Why? @ -None Did you discuss the management of the patient with other professionals (professionals i.e. , PA, TOLL TEST DESK WORKER, lab, RT, psych nurse, social media strategist, slab installer, teacher, executive officer, case preparer and liner)? Give summary @ -No Was smoking cessation discussed for >3mins.? @ -No Was critical care preformed (if so, how long)? @ -No Were there social determinants of health that impacted care today? How? (Homelessness, low income, unemployed, alcoholism, drug addiction, transportation, low edu. Level, literacy, decrease access to med. care, correction, rehab)? @ -No Was there de-escalation of care discussed even if they declined (Discuss DNR or withdrawal of care, Hospice)? DNR status @ -No What co-morbidities impacted this encounter? (DM, HTN, Smoking, COPD, CAD, Cancer, CVA, ARF, Chemo, Hep., AIDS, mental health diagnosis, sleep apnea, morbid obesity)? @ -None Was patient admitted / discharged? Hospital course, mention meds given and route, prescriptions, significant lab abnormalities, going to OR and other pertinent info. @ -Multiple joint pain without trauma will give morphine for pain and monitor response. Given lack of trauma and multiple joint involvement with previous imaging at podiatry office will defer extremity imaging. Will obtain x-ray of the lumbar spine. Due to recent steroid administration/course and steroid injections into his feet will avoid steroid use. Pain persists but improved with morphine. X-ray results discussed with patient and son at bedside. Advised no indication for further workup in the emergency room recommend further outpatient workup for arthritis continued workup with podiatry and obtaining shoe inserts. May benefit from outpatient physical therapy advised to discuss with primary care provider regarding potential referral for physical therapy and to orthopedist. Will give a starter pack of Tylenol 3 to utilize for pain as needed. Will discharge home in stable condition with Tylenol 3 starter pack with son and follow-up with primary care provider. Undiagnosed new problem with uncertain prognosis? @ -No Drug Therapy requiring intensive monitoring for toxicity (Heparin, Nitro, Insulin, Cardizem)? @ -No Were any procedures done? @ -No Diagnosis/symptom? @ -Bilateral hip and left foot pain Acute, or Chronic, or Acute on Chronic? @ -Acute (duration approximately one month) Uncomplicated (without systemic symptoms) or Complicated (systemic symptoms)? @ -Uncomplicated Side effects of treatment? @ -No Exacerbation, Progression, or Severe Exacerbation? @ -No Poses a threat to life or bodily function? How? (Chest pain, [place], [place], pneumonia, PE, COPD, DKA, ARF, appy, cholecystitis, CVA, Diverticulitis, Homicidal, Suicidal, threat to staff... and all critical care pts) @ -No Case discussed with Dr. Lobo Disposition Clinical Impression: Bilateral hip pain, Left foot pain Disposition: HOME SELF-CARE Condition: Stable Additional Instructions: Please utilize Tylenol 3 starter pack for pain as needed may supplement with [id number] ibuprofen or Aleve as needed. Continued use of ear cane is recommended. Please follow-up with your primary care provider. You may benefit from physical therapy to help with symptoms. Please continue to follow with her contract clerk automobile as well. Please return to the Emergency Department if symptoms worsen or any other concerns. Is patient prescribed a controlled substance at d/c from ED?: No Referrals: Lenka Perera DO [Primary Care Provider] - 1-2 days Time of Disposition: 01:47
--- NOTE | 2022-09-26 01:18 | XR ---
EXAMINATION TYPE: XR lumbar spine 2 or 3V DATE OF EXAM: 09/26/2022 COMPARISON: NONE HISTORY: Hip pain TECHNIQUE: 3 views FINDINGS: The lumbar vertebral abnormal alignment. Posterior elements are intact. No compression frac ture. There is anterior spurring in the mid and lower lumbar spine. There is vacuum disc at L4-5. No focal bone destruction. Sacroiliac joints are intact. IMPRESSION: Multilevel lumbar spondylotic changes. No fracture seen. Atheromatous aorta.
[2022-09-26] MEDS ORDERED: ACET/COD 300 MG/30 MG STARTER PACK 6 TAB BTL PO STA (01:47)
== END 2022-09-26 02:05 | disposition home or self-care (01) ==
LOC: EC 00:16
DX: M25.551 Pain in right hip (principal); M25.552 Pain in left hip; M79.672 Pain in left foot; E11.9 Type 2 diabetes mellitus without complications; I10 Essential (primary) hypertension; Z88.8 Allergy status to other drugs, medicaments and biological substances; Z79.84 Long term (current) use of oral hypoglycemic drugs; Z79.4 Long term (current) use of insulin; Z79.82 Long term (current) use of aspirin; Z79.899 Other long term (current) drug therapy
CPT/HCPCS: 72100; 96372; 99283; J2270

== ENCOUNTER 2022-09-27 11:28 | Emergency (ER) | payer MEDICARE, OTHER ==
[2022-09-27 11:37] VITALS: TEMP 98.4
[2022-09-27] MEDS ORDERED: KETOROLAC 15 MG/ML 1 ML VIAL IM STA (11:52)
--- NOTE | 2022-09-27 11:55 | ED ---
Lower Extremity Injury HPI - General Chief Complaint: Extremity Injury, Lower Stated Complaint: Revisit - L. Hip Pain Time Seen by Provider: 09/27/22 11:38 Source: patient, family (son), RN notes reviewed, old records reviewed Mode of arrival: ambulatory Limitations: no limitations - History of Present Illness Initial Comments: 67-year-old male alert and oriented 4 presents to emergency room with his son complaining of left hip pain. 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 He was seen in the emergency room and did have an x-ray of his low back done which was negative. Patient states that over the past couple of days he has had increased pain in his hip and Into his buttock. Does have a history of neuropathy of the left foot. MD Complaint: hip injury (left) -: days(s) (3) Place: street/outdoors Severity scale (1-10): 10 Associated Symptoms: able to partially bear weight - Related Data Home Medications Medication Instructions Recorded Confirmed Aspirin 325 mg PO HS 08/20/14 08/07/21 Cholecalciferol [Vitamin D3 (25 2,000 unit PO DAILY 08/20/14 08/07/21 Mcg = 1000 Iu)] Pregabalin [Lyrica] 400 mg PO DAILY 08/20/14 08/07/21 Tamsulosin [Flomax] 0.4 mg PO HS 08/20/14 08/07/21 Ubidecarenone [Co Q-10] 200 mg PO DAILY 08/20/14 08/07/21 Pregabalin [Lyrica] 200 mg PO HS 05/01/16 08/07/21 INSULIN ASPART (NovoLOG) [NovoLOG See Protocol SQ AC-TID PRN 07/14/17 08/07/21 (formulary)] metFORMIN HCL [Glucophage] 1,000 mg PO BID 07/14/17 08/07/21 Losartan Potassium [Cozaar] 25 mg PO HS 08/07/21 08/07/21 Previous Rx's Medication Instructions Recorded Amoxic-Pot Clav 875-125Mg 1 tab PO Q12HR 10 Days #20 tab 08/11/21 [Augmentin 875-125] Atorvastatin [Lipitor] 40 mg PO HS 30 Days #30 tab 08/11/21 DULoxetine HCL [Cymbalta] 30 mg PO DAILY 30 Days #90 capsule 08/11/21 DULoxetine HCL [Cymbalta] 60 mg PO HS #0 capsule 08/11/21 Insulin Glargine,Hum.rec.anlog 50 units SQ HS #0 08/11/21 [Tousanamselene Solostar] busPIRone HCl [Buspar] 10 mg PO BID PRN 30 Days #60 tab 08/11/21 predniSONE [Deltasone] 20 mg PO DIRECTED 5 Days #10 tab 09/09/22 Lidocaine 5% Patch [Lidoderm] 1 patch TOPICAL DAILY 14 Days #14 09/27/22 patch Allergies Allergy/AdvReac Type Severity Reaction Status Date / Time cephalexin monohydrate AdvReac Vomiting Verified 09/27/22 11:36 [From Keflex] venlafaxine [From Effexor] AdvReac Rapid Verified 09/27/22 11:36 Heart Rate Review of Systems ROS Statement: Those systems with pertinent positive or pertinent negative responses have been documented in the HPI. ROS Other: All systems not noted in ROS Statement are negative. Past Medical History Past Medical History: CVA/TIA, Diabetes Mellitus, Hyperlipidemia, Hypertension, Prostate Disorder Additional Past Medical History / Comment(s): bph History of Any Multi-Drug Resistant Organisms: None Reported Past Surgical History: No Surgical Hx Reported Additional Past Surgical History / Comment(s): right endarderectomy Past Anesthesia/Blood Transfusion Reactions: No Reported Reaction Past Psychological History: Anxiety, Depression Smoking Status: Never smoker Past Alcohol Use History: Occasional Past Drug Use History: None Reported - Past Family History Father Family Medical History: Cancer Mother History Unknown: Yes Family Medical History: Congestive Heart Failure (CHF), COPD, Coronary Artery Disease (CAD), Diabetes Mellitus, Myocardial Infarction (MD) General Exam Limitations: no limitations General appearance: alert, in no apparent distress Eye exam: Absent: scleral icterus, conjunctival injection, periorbital swelling Neck exam: Absent: tenderness, meningismus Respiratory exam: Absent: respiratory distress, accessory muscle use Cardiovascular Exam: Present: regular rate GI/Abdominal exam: Present: soft. Absent: tenderness, rigid Left Hip exam: Present: tenderness, pelvic stability. Absent: swelling, deformity, crepitus, external rotation, internal rotation, shortening Upper Leg exam: Present: tenderness. Absent: deformity Knee exam: Present: full ROM. Absent: tenderness, swelling Lower Leg exam: Absent: tenderness, swelling Ankle exam: Present: full ROM. Absent: tenderness, swelling Foot/Toe exam: Absent: tenderness, swelling Neurovascular tendon exam: Present: no vascular compromise. Absent: abnormal cap refill, extremity cold to touch, pallor, foot drop Neurological exam: Present: alert, oriented X3 Psychiatric exam: Present: normal affect, normal mood Skin exam: Present: warm, dry, normal color. Absent: cyanosis, diaphoretic, pallor Course Vital Signs 09/27/22 09/27/22 11:35 13:45 Temperature 98.4 F Pulse Rate 78 83 Respiratory 20 18 Rate Blood Pressure 138/71 142/78 O2 Sat by Pulse 99 97 Oximetry Medical Decision Making - Medical Decision Making X-ray of left hip shows no evidence for acute process or fracture. Hip osteoarthritis. CT ordered to rule out occult fracture, interpreted by me showing no evidence of fracture or dislocation. Radiologist interpretation no evidence of fracture, subluxation or dislocation. No significant soft tissue swelling or joint effusion. Atherosclerosis of the arterial vasculature. Mild hip osteoarthrosis. Patient was given Toradol and states pain relief. He was also given a Lidoderm patch. Patient and son instructed to use Lidoderm patches, motrin and previously prescribed lyrica and Tylenol with Codeine for pain. Follow-up with his primary care doctor. States he has an appointment with his construction trench digger in 2 days to receive joint injections in his feet for chronic pain. They are agreeable to discharge. History of CVA with left-sided weakness, left foot neuropathy, hypertension, diabetes, hyperlipidemia, anxiety, depression. Vital signs are stable. Was pt. sent in by a medical professional or institution? @ -no Did you speak to anyone other than the patient for history? @ -no Did you review nursing and triage notes? @ -yes I agree Were old charts reviewed? @ -Previous x-rays Differential Diagnosis? @ -Hip or pelvis fracture, arthritis, hip dislocation, contusion, bursitis, avascular necrosis of the hip EKG interpreted by me (3pts min.)? @ -[none] X-rays interpreted by me (1pt min.)? @ -yes as above CT interpreted by me (1pt min.)? @ -no U/S interpreted by me (1pt. min.)? @ -[none] What testing was considered but not performed? (CT, X-rays, U/S, labs)? Why? @ none What meds were considered but not given? Why? @ -no Did you discuss the management of the patient with other professionals? @ -no Did you reconcile home meds? @ -no Was smoking cessation discussed for >3mins.? @ -no Was critical care preformed (if so, how long)? @ -no Were there social determinants of health that impacted care today? How? (Homelessness, low income, unemployed, alcoholism, drug addiction, transportation, low edu. Level, literacy, decrease access to med. care, fpc, rehab)? @ -none Was there de-escalation of care discussed even if they declined? (Discuss DNR or withdrawal of care, Hospice)? @ -no What co-morbidities impacted this encounter? (DM, HTN, Smoking, COPD, CAD, Cancer, CVA, Hep., AIDS, mental health diagnosis, sleep apnea, morbid obesity)? @ -Diabetes, hypertension, CVA, hyperlipidemia, arthritis Was patient admitted / discharged? @ -Discharged Undiagnosed new problem with uncertain prognosis? @ -[none] Drug Therapy requiring intensive monitoring for toxicity (Heparin, Nitro, Insulin, Cardizem)? @ -No Were any procedures done? @ -none Diagnosis/symptom? @ -Osteoarthritis left hip Acute, or Chronic, or Acute on Chronic? @ -acute Uncomplicated (without systemic symptoms) or Complicated (systemic symptoms)? @ -Uncomplicated Side effects of treatment? @ -[none] Exacerbation, Progression, or Severe Exacerbation] @ -[no] Poses a threat to life or bodily function? @ -[no] Disposition Clinical Impression: Hip pain, left, Osteoarthrosis of hip Disposition: HOME SELF-CARE Condition: Good Instructions (If sedation given, give patient instructions): Hip Pain (ED) Additional Instructions: Ice and topical pain relievers like icy hot, Biofreeze or BenGay creams. You can also use Lidoderm patches as prescribed. Follow-up with your primary care doctor this week. Prescriptions: Lidocaine 5% Patch [Lidoderm] 1 patch TOPICAL DAILY 14 Days #14 patch Is patient prescribed a controlled substance at d/c from ED?: No Referrals: Lenka Perera DO [Primary Care Provider] - 1-2 days Time of Disposition: 13:13
--- NOTE | 2022-09-27 12:13 | XR ---
EXAMINATION TYPE: XR Hip LT and AP Pelvis DATE OF EXAM: 09/27/2022 12:01 PM INDICATION: Patient age:Male; 67 years old; Reason for study: fall; COMPARISON: None. TECHNIQUE: The left hip was examined in the frontal and lateral projections and a AP pelvis. FINDINGS: No evidence for acute process, joint dislocation or significant soft tissue swelling. Mild osteophyte formation of the superior acetabulum of the hips. IMPRESSION: 1. No evidence for acute process. 2. Mild hip osteoarthrosis.
--- NOTE | 2022-09-27 12:59 | CT ---
EXAMINATION TYPE: CT hip LT wo con CT DLP: 567.8 mGycm, Automated exposure control for dose reduction was used. DATE OF EXAM: 09/27/2022 12:47 PM COMPARISON: Extremity radiograph same day. CLINICAL INDICATION:Male, 67 years old with history of r/o fracture, Left hip pain TECHNIQUE: Axial images were obtained of the left hip . Additional coronal and sagittal reformatted images and soft tissue and bone window were obtained for review. 3-D reconstruction was created on a separate workstation. Contrast used: None Oral contrast used: None FINDINGS: There is no evidence of fracture, subluxation, or dislocation. No significant soft tissue swelling or joint effusion is identified. No focal muscular atrophy or edema is identified. No radiop aque foreign body identified. Mild degeneration with osteophyte formation of the left acetabulum. Ath erosclerosis of the arterial vasculature. IMPRESSION: 1. No evidence for acute fracture. 2. Mild left hip osteoarthrosis.
[2022-09-27] MEDS ORDERED: LIDOCAINE 5% PATCH TOPICAL SCH (13:15)
[2022-09-27 13:46] VITALS: BP 142/78; PULSE 83; RESP 18
== END 2022-09-27 13:46 | disposition home or self-care (01) ==
LOC: EC 11:28
DX: M25.552 Pain in left hip (principal); M16.12 Unilateral primary osteoarthritis, left hip; I10 Essential (primary) hypertension; E11.9 Type 2 diabetes mellitus without complications; E78.5 Hyperlipidemia, unspecified; F41.9 Anxiety disorder, unspecified; F32.A Depression, unspecified; Z79.52 Long term (current) use of systemic steroids; Z79.82 Long term (current) use of aspirin; Z79.84 Long term (current) use of oral hypoglycemic drugs; Z79.899 Other long term (current) drug therapy; Z88.1 Allergy status to other antibiotic agents; Z88.8 Allergy status to other drugs, medicaments and biological substances
CPT/HCPCS: 73502; 73700; 99284; 96372; J1885

== ENCOUNTER 2022-10-02 23:27 | Inpatient (IN) | payer MEDICARE, OTHER ==
--- NOTE | 2022-10-03 00:08 | ED ---
Extremity Problem HPI - General Chief complaint: Weakness Stated complaint: Left sided weakness Time Seen by Provider: 10/02/22 23:41 Source: patient, RN notes reviewed Mode of arrival: ambulatory Limitations: no limitations - History of Present Illness Initial comments: This is a 67-year-old male who presents to the emergency department for left lower extremity pain. States that approximately 3 weeks ago, he was having problems with plantar fasciitis in the bilateral feet. This then caused pain in the bilateral hips, with the left being for more painful than the right. He does have residual left-sided weakness as a result of a CVA many years ago, which he believes is a contributing factor. States that whenever he goes to stand up, the pain shoots from his foot into his left hip. Due to the pain, he feels like his leg is dragging when he tries to walk. 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 He has had steroid injections from podiatry with little to no relief. 2 days ago, he had an MRI of the left hip at [facility]. He has a follow-up appointment on 10/05 to review the results. Overall believes that he is getting worse. He is now scared to go home due to the pain and weakness. He has tried using a walker which is not beneficial. He and his are scared that he will fall due to his mobility issues and are hoping for PT/OT eval and rehab placement. Denies any fevers, chills, sore throat, cough, dyspnea, chest pain, palpitations, abdominal pain, nausea, vomiting, diarrhea, back pain, or headaches. MD Complaint: extremity pain Onset/Timin -: week(s) Location: left, lower extremity Associated Symptoms: denies other symptoms - Related Data Home Medications Medication Instructions Recorded Confirmed Aspirin 325 mg PO HS 08/20/14 08/07/21 Cholecalciferol [Vitamin D3 (25 2,000 unit PO DAILY 08/20/14 08/07/21 Mcg = 1000 Iu)] Pregabalin [Lyrica] 400 mg PO DAILY 08/20/14 08/07/21 Tamsulosin [Flomax] 0.4 mg PO HS 08/20/14 08/07/21 Ubidecarenone [Co Q-10] 200 mg PO DAILY 08/20/14 08/07/21 Pregabalin [Lyrica] 200 mg PO HS 05/01/16 08/07/21 INSULIN ASPART (NovoLOG) [NovoLOG See Protocol SQ AC-TID PRN 07/14/17 08/07/21 (formulary)] metFORMIN HCL [Glucophage] 1,000 mg PO BID 07/14/17 08/07/21 Losartan Potassium [Cozaar] 25 mg PO HS 08/07/21 08/07/21 Previous Rx's Medication Instructions Recorded Amoxic-Pot Clav 875-125Mg 1 tab PO Q12HR 10 Days #20 tab 08/11/21 [Augmentin 875-125] Atorvastatin [Lipitor] 40 mg PO HS 30 Days #30 tab 08/11/21 DULoxetine HCL [Cymbalta] 30 mg PO DAILY 30 Days #90 capsule 08/11/21 DULoxetine HCL [Cymbalta] 60 mg PO HS #0 capsule 08/11/21 Insulin Glargine,Hum.rec.anlog 50 units SQ HS #0 08/11/21 [Toujeo Solostar] busPIRone HCl [Buspar] 10 mg PO BID PRN 30 Days #60 tab 08/11/21 predniSONE [Deltasone] 20 mg PO DIRECTED 5 Days #10 tab 09/09/22 Lidocaine 5% Patch [Lidoderm] 1 patch TOPICAL DAILY 14 Days #14 09/27/22 patch Allergies Allergy/AdvReac Type Severity Reaction Status Date / Time cephalexin monohydrate AdvReac Vomiting Verified 10/02/22 23:38 [From Keflex] venlafaxine [From Effexor] AdvReac Rapid Verified 10/02/22 23:38 Heart Rate Review of Systems ROS Statement: Those systems with pertinent positive or pertinent negative responses have been documented in the HPI. ROS Other: All systems not noted in ROS Statement are negative. Past Medical History Past Medical History: CVA/TIA, Diabetes Mellitus, Hyperlipidemia, Hypertension, Prostate Disorder Additional Past Medical History / Comment(s): bph History of Any Multi-Drug Resistant Organisms: None Reported Past Surgical History: No Surgical Hx Reported Additional Past Surgical History / Comment(s): right endarderectomy Past Anesthesia/Blood Transfusion Reactions: No Reported Reaction Past Psychological History: Anxiety, Depression Smoking Status: Never smoker Past Alcohol Use History: Occasional Past Drug Use History: None Reported - Past Family History Father Family Medical History: Cancer Mother History Unknown: Yes Family Medical History: Congestive Heart Failure (CHF), COPD, Coronary Artery Disease (CAD), Diabetes Mellitus, Myocardial Infarction (VT) General Exam Limitations: no limitations General appearance: alert, in no apparent distress Head exam: Present: atraumatic, normocephalic, normal inspection Respiratory exam: Present: normal lung sounds bilaterally. Absent: respiratory distress, wheezes, rales, rhonchi, stridor Cardiovascular Exam: Present: regular rate, normal rhythm, normal heart sounds. Absent: systolic murmur, diastolic murmur, rubs, gallop, clicks Extremities exam: Present: other (Tenderness to palpation over the left plantar fascia. No tenderness to palpation of the left greater trochanter. Leg raise induces pain to the left hip at approximately 60 degrees. 2+ dorsalis pedis and tibialis posterior pulses bilaterally. Capillary refill <1 second.) Neurological exam: Present: alert, oriented X3, CN II-XII intact Psychiatric exam: Present: normal affect, normal mood Skin exam: Present: warm, dry, intact, normal color. Absent: rash Course Vital Signs 10/02/22 10/02/22 10/03/22 23:38 23:41 00:30 Temperature 98.3 F Pulse Rate 78 67 70 Respiratory 15 16 16 Rate Blood Pressure 138/76 138/118 133/73 O2 Sat by Pulse 100 98 95 Oximetry Medical Decision Making - Medical Decision Making This is a 67-year-old male who presents to the emergency department for left hip pain. Was pt. sent in by a medical professional or institution? @ -No Did you speak to anyone other than the patient for history? @ -His Did you review nursing and triage notes? @ -Agree, accurate with regards to the patient's symptoms. Were old charts reviewed? @ -No Differential Diagnosis? @ Differential Hip Pain: -Fracture, dislocation, osteoarthritis, rheumatoid arthritis, septic arthritis, gout, synovitis, piriformis syndrome, bursitis, arterial occlusion, DVT, femoroacetabular inpingement, labral tear, avascular necrosis, SI joint dysfunction, this is not meant to be an all-inclusive list. What testing was considered but not performed? (CT, X-rays, U/S, labs)? Why? @ -None What meds were considered but not given? Why? @ -None Did you discuss the management of the patient with other professionals? @ -Marilin Galaviz with [facility], who accepts the patient for admission. Did you reconcile home meds? @ -No Was smoking cessation discussed for >3mins.? @ -No Was critical care preformed (if so, how long)? @ -No Were there social determinants of health that impacted care today? How? (Homelessness, low income, unemployed, alcoholism, drug addiction, transpor tation, low edu. Level, literacy, decrease access to med. care, long term, rehab)? @ -No Was there de-escalation of care discussed even if they declined? (Discuss DNR or withdrawal of care, Hospice)? @ -No What co-morbidities impacted this encounter? (DM, HTN, Smoking, COPD, CAD, Cancer, CVA, Hep., AIDS, mental health diagnosis, sleep apnea, morbid obesity)? @ -Obesity, Hx of CVA, DM, HLD, HTN. Was patient admitted / discharged? @ -Admitted. The patient's MRI was uploaded into our system. The official read is pending. I discussed with the patient ambulation aids or alternative pain medication to help him get by at home, however he states that he is completely unable to walk at this point. He is not comfortable going home and his is not comfortable taking him home. Will admit patient for PT/OT eval and rehab placement. Orthopedics consulted as well. Lab work ordered for admission purposes with results pending at the time of admission. Undiagnosed new problem with uncertain prognosis? @ -Left hip pain Drug Therapy requiring intensive monitoring for toxicity (Heparin, Nitro, Insulin, Cardizem)? @ -None Were any procedures done? @ -None Diagnosis/symptom? @ -Left hip pain Acute, or Chronic, or Acute on Chronic? @ -Acute Uncomplicated (without systemic symptoms) or Complicated (systemic symptoms)? @ -Complicated Side effects of treatment? @ -None Exacerbation, Progression, or Severe Exacerbation] @ -Progression Poses a threat to life or bodily function? @ -Yes, having a severe impact on his ability to walk. This case was discussed in detail with the attending ED physician, Dr. Riley. Presentation, findings, and treatment plan discussed in detail as well. - Lab Data Result diagrams: 10/03/22 00:58 Disposition Clinical Impression: Left hip pain, Cannot walk Disposition: ADMITTED IP TO THIS HOSP
[2022-10-03] MEDS ORDERED: KETOROLAC 15 MG/ML 1 ML VIAL IVP PRN (00:43)
[2022-10-03] MEDS ORDERED: ONDANSETRON 4 MG/2 ML VIAL IVP PRN (00:43)
[2022-10-03] MEDS ORDERED: NALOXONE 0.4 MG/ML 1 ML VIAL IV PRN (00:43)
[2022-10-03] MEDS ORDERED: HYDROcodone/APAP 10-325MG 1 EACH TAB PO PRN (00:46)
[2022-10-03 01:08] LABS: Basophils % (A) 1 %; Eosinophils # (A) 0.2 k/uL (0-0.7); Eosinophils % (A) 3 %; HGB 13.1 gm/dL (13.0-17.5); Lymphocytes # (A) 1.2 k/uL (1.0-4.8); Lymphocytes % (A) 21 %; MCH 28.2 pg (25.0-35.0); MCHC 32.7 g/dL (31.0-37.0); MCV 86.3 fL (80.0-100.0); Mean Platelet Volume 9.4; Monocytes # (A) 0.4 k/uL (0-1.0); Monocytes % (A) 6 %; Neutrophils # (A) 3.8 k/uL (1.3-7.7); Neutrophils % (A) 67 %; Platelet Count 149 k/uL (150-450); RBC 4.64 m/uL (4.30-5.90); RDW 13.1 % (11.5-15.5); WBC 5.7 k/uL (3.8-10.6)
[2022-10-03 01:18] LABS: INR 0.9 (<1.2); Partial Thromboplastin Time 24.5 sec (22.0-30.0); Prothrombin Time 9.8 sec (9.0-12.0)
[2022-10-03 01:31] LABS: ALT 32 U/L (4-49); African American GFR (CKD) >90 (>60 ml/min/1.73 sqM); Albumin 4.1 g/dL (3.5-5.0); Anion Gap 8 mmol/L; Blood Urea Nitrogen 28 mg/dL (9-20); Calcium 9.4 mg/dL (8.4-10.2); Carbon Dioxide 25 mmol/L (22-30); Chloride 105 mmol/L (98-107); Glucose 249 mg/dL (74-99); Non-African American GFR(CKD) >90 (>60 ml/min/1.73 sqM); Sodium 138 mmol/L (137-145); Total Bilirubin 0.5 mg/dL (0.2-1.3); Total Protein 6.8 g/dL (6.3-8.2)
[2022-10-03 01:40] LABS: AST 27 U/L (17-59); Alkaline Phosphatase 75 U/L (38-126)
[2022-10-03 01:41] LABS: C Reactive Protein <0.5 mg/dL (<1.0)
[2022-10-03 01:44] LABS: Erythrocyte Sedimentation Rate 16 mm/hr (0-15)
[2022-10-03] MEDS ORDERED: DEXTROSE 50% SYRINGE 50 ML IVP PRN ×2 (03:51)
[2022-10-03 05:56] LABS: Glucose,Whole Blood 99 mg/dL (70-110)
[2022-10-03] MEDS: HYDROcodone/APAP 5-325MG 1 EACH TAB PO PRN ×2 (06:01→12:48)
[2022-10-03] MEDS: INSULIN ASPART (NovoLOG) 100 UNIT/ML VIAL SQ SCH ×4 (06:04→20:07)
--- NOTE | 2022-10-03 11:01 | P.CNOR ---
History of Present Illness - [facility] Consult date: 10/03/22 History of present illness: The patient is a very pleasant 67-year-old male with a medical history significant for having a prior stroke and residual left-sided weakness who was admitted to internal medicine with intractable left-sided buttock pain, difficulty ambulating, and weakness in his left leg. Briefly the patient reports a several week history of progressively worsening atraumatic what he describes as "hip pain "and localizes it to his posterior buttock. The patient states he initially had pain throughout his left leg and into his foot. He was seen by his primary care doctor who is obtained x-rays and a computed tomography scan of the left hip which the patient states were normal. He recently had an MRI at our office that was ordered by his primary care doctor. The patient had an appointment scheduled for this Wednesday to review the MRI of his left hip with his primary care doctor, but due to increasing pain in his left buttock he presented to the emergency department. At the time of my evaluation the patient is reporting significant pain in the posterior aspect of his hip. He denies any groin pain. He denies any fevers or chills. He denies any recent injuries. He states that when he stands upright it is very painful in his left leg but it improves slightly when he bends forward using a walker. Past Medical History Past Medical History: CVA/TIA, Diabetes Mellitus, Hyperlipidemia, Hypertension, Prostate Disorder Additional Past Medical History / Comment(s): bph History of Any Multi-Drug Resistant Organisms: None Reported Past Surgical History: No Surgical Hx Reported Additional Past Surgical History / Comment(s): right endarderectomy Past Anesthesia/Blood Transfusion Reactions: No Reported Reaction Past Psychological History: Anxiety, Depression Smoking Status: Never smoker Past Alcohol Use History: Occasional Past Drug Use History: None Reported - Past Family History Father Family Medical History: Cancer Mother History Unknown: Yes Family Medical History: Congestive Heart Failure (CHF), COPD, Coronary Artery D isease (CAD), Diabetes Mellitus, Myocardial Infarction ([place]) Medications and Allergies Home Medications Medication Instructions Recorded Confirmed Type Aspirin 325 mg PO HS 08/20/14 08/07/21 History Cholecalciferol [Vitamin D3 (25 2,000 unit PO DAILY 08/20/14 08/07/21 History Mcg = 1000 Iu)] Pregabalin [Lyrica] 400 mg PO DAILY 08/20/14 08/07/21 History Tamsulosin [Flomax] 0.4 mg PO HS 08/20/14 08/07/21 History Ubidecarenone [Co Q-10] 200 mg PO DAILY 08/20/14 08/07/21 History Pregabalin [Lyrica] 200 mg PO HS 05/01/16 08/07/21 History INSULIN ASPART (NovoLOG) [NovoLOG See Protocol SQ AC-TID PRN 07/14/17 08/07/21 History (formulary)] metFORMIN HCL [Glucophage] 1,000 mg PO BID 07/14/17 08/07/21 History Losartan Potassium [Cozaar] 25 mg PO HS 08/07/21 08/07/21 History Amoxic-Pot Clav 875-125Mg 1 tab PO Q12HR 10 Days #20 tab 08/11/21 Rx [Augmentin 875-125] Atorvastatin [Lipitor] 40 mg PO HS 30 Days #30 tab 08/11/21 Rx DULoxetine HCL [Cymbalta] 30 mg PO DAILY 30 Days #90 capsule 08/11/21 Rx DULoxetine HCL [Cymbalta] 60 mg PO HS #0 capsule 08/11/21 Rx Insulin Glargine,Hum.rec.anlog 50 units SQ HS #0 08/11/21 08/07/21 Rx [[place] Solostar] busPIRone HCl [Buspar] 10 mg PO BID PRN 30 Days #60 tab 08/11/21 Rx predniSONE [Deltasone] 20 mg PO DIRECTED 5 Days #10 tab 09/09/22 Rx Lidocaine 5% Patch [Lidoderm] 1 patch TOPICAL DAILY 14 Days #14 09/27/22 Rx patch Allergies Allergy/AdvReac Type Severity Reaction Status Date / Time cephalexin monohydrate AdvReac Vomiting Verified 10/02/22 23:38 [From Keflex] venlafaxine [From Effexor] AdvReac Rapid Verified 10/02/22 23:38 Heart Rate Physical Examination The patient is resting comfortably in his hospital bed. He is alert and oriented and easily able to converse with me. His head is normocephalic and atraumatic. His chest demonstrates nonlabored breathing with symmetric chest expansion. His abdomen is moderately obese. Both upper extremities are without deformity. The right lower extremities without deformity. A focused exam of the left lower extremity was conducted. On inspection there is no erythema or skin lesions over the left hip. He has NO PAIN with passive range of motion of the LEFT hip. I'm able to fully flex, extend, internally rotate, and axillary rotate his left hip with no pain. There is no tenderness over the greater trochanter or ischium. He does have a positive straight leg raise. Results I was able to review the patient's MRI imaging and report from our office. Overall the MRI looks normal with minimal pathologic findings. There is minimal arthritis in the left hip, there are no acute fractures, there is no effusion, there is no evidence of any metastatic lesions. The radiologist's report included a small labral tear which is likely incidental and bilateral hamstring tendinitis. - Labs Labs: Abnormal Lab Results - Last 24 Hours (Table) 10/03/22 10/03/22 10/03/22 Range/Units 00:58 00:58 06:00 Plt Count 149 L (150-450) k/uL ESR 16 H (0-15) mm/hr BUN 28 H (9-20) mg/dL Glucose 249 H (74-99) mg/dL Hemoglobin A1c 12.0 H (0.0-6.0) % H & H 10/03/22 Range/Units 00:58 Hgb 13.1 (13.0-17.5) gm/dL Hct 40.0 (39.0-53.0) % Coagulation 10/03/22 Range/Units 00:58 INR 0.9 (<1.2) Result Diagrams: 10/03/22 00:58 10/03/22 00:58 Assessment and Plan Assessment: Left-sided leg pain likely neurogenic in origin History of prior stroke with residual left-sided weakness Plan: I had a long discussion with the patient this morning and after listening to his presenting complaints, evaluating his hip, and reviewing the MRI from our office I don't think that his hip joint is the source of his pain. He has no pain with passive range of motion of the left hip and there is no tenderness diffusely over the left hip. His MRI is essentially normal. His presenting complaints and exam is more consistent with lumbar spine pathology or a neurogenic etiology. I have no plans for further workup of his left hip. I would recommend having the patient evaluated by the spine service at some point. Dr. Reyes is out of town until Wednesday from our group. If the patient is still an inpatient at that time he can be evaluated by Dr. Reyes otherwise he can discharge home and have outpatient evaluation in our office with either Dr. Reyes or Dr. Bailey. I will sign off at this time in regards to his left hip. Time with Patient: Greater than 30
[2022-10-03 11:18] VITALS: BMI 31.5
[2022-10-03 12:09] LABS: Glucose,Whole Blood 178 mg/dL (70-110)
[2022-10-03 17:27] LABS: Glucose,Whole Blood 194 mg/dL (70-110)
[2022-10-03] MEDS: HYDROcodone/APAP 10-325MG 1 EACH TAB PO PRN (17:31)
--- NOTE | 2022-10-03 19:23 | P.HPIM ---
History of Present Illness H&P Date: 10/03/22 Chief Complaint: Left leg pain 67-year-old male who presents to the emergency department for left lower extremity pain. States that approximately 3 weeks ago, he was having problems with plantar fasciitis in the bilateral feet. This then caused pain in the bilateral hips, with the left being for more painful than the right. He does have residual left-sided weakness as a result of a CVA many years ago, which he believes is a contributing factor. States that whenever he goes to stand up, the pain shoots from his foot into his left hip. Due to the pain, he feels like his leg is dragging when he tries to walk. 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 He has had steroid injections from podiatry with little to no relief. 2 days ago, he had an MRI of the left hip at [facility]. He has a follow-up appointment on 10/05 to review the results. Overall believes that he is getting worse. He is now scared to go home due to the pain and weakness. He has tried using a walker which is not beneficial. He and his are scared that he will fall due to his mobility issues and are hoping for PT/OT eval and rehab placement. Review of Systems REVIEW OF SYSTEMS: CONSTITUTIONAL: No fever, no malaise, no fatigue. HEENT: No recent visual problems or hearing problems. Denied any sore throat. CARDIOVASCULAR: No chest pain, orthopnea, PND, no palpitations, no syncope. PULMONARY: No shortness of breath, no cough, no hemoptysis. GASTROINTESTINAL: No diarrhea, no nausea, no vomiting, no abdominal pain. NEUROLOGICAL: No headaches, no weakness, no numbness. HEMATOLOGICAL: Denies any bleeding or petechiae. GENITOURINARY: Denies any burning micturition, frequency, or urgency. MUSCULOSKELETAL/RHEUMATOLOGICAL: Denies any joint pain, swelling, or any muscle pain. ENDOCRINE: Denies any polyuria or polydipsia. The rest of the 14-point review of systems is negative. Past Medical History Past Medical History: CVA/TIA, Diabetes Mellitus, Hyperlipidemia, Hypertension, Prostate Disorder Additional Past Medical History / Comment(s): bph History of Any Multi-Drug Resistant Organisms: None Reported Past Surgical History: No Surgical Hx Reported Additional Past Surgical History / Comment(s): right endarderectomy Past Anesthesia/Blood Transfusion Reactions: No Reported Reaction Past Psychological History: Anxiety, Depression Smoking Status: Never smoker Past Alcohol Use History: Occasional Past Drug Use History: None Reported - Past Family History Father Family Medical History: Cancer Mother History Unknown: Yes Family Medical History: Congestive Heart Failure (CHF), COPD, Coronary Artery Disease (CAD), Diabetes Mellitus, Myocardial Infarction ([place]) Medications and Allergies Home Medications Medication Instructions Recorded Confirmed Type Aspirin 325 mg PO DAILY 08/20/14 10/03/22 History Pregabalin [Lyrica] 400 mg PO DAILY 08/20/14 10/03/22 History Tamsulosin [Flomax] 0.4 mg PO HS 08/20/14 10/03/22 History Pregabalin [Lyrica] 200 mg PO HS 05/01/16 10/03/22 History metFORMIN HCL [Glucophage] 1,000 mg PO BID 07/14/17 10/03/22 History Losartan Potassium [Cozaar] 25 mg PO DAILY 08/07/21 10/03/22 History DULoxetine HCL [Cymbalta] 30 mg PO DAILY 30 Days #90 capsule 08/11/21 10/03/22 Rx Co Q-10(Unknown) 1 tab PO DAILY 10/03/22 10/03/22 History Fish Oil(Unknown) 1 cap PO DAILY 10/03/22 10/03/22 History HYDROcodone/APAP 10-325MG [[place] 1 tab PO Q6H PRN 10/03/22 10/03/22 History 10-325] Insulin Aspart [NovoLOG Flexpen] 10 - 12 units SQ AC-BRKFST 10/03/22 10/03/22 History Insulin Aspart [NovoLOG Flexpen] 20 units SQ HS 10/03/22 10/03/22 History Insulin Glargine,Hum.rec.anlog 40 units SQ BID 10/03/22 10/03/22 History [[place] Solostar] Lidocaine 5% Patch [Lidoderm] 1 patch TRANSDERM DAILY PRN 10/03/22 10/03/22 History Meloxicam [Mobic] 15 mg PO DAILY 10/03/22 10/03/22 History Simvastatin [Zocor] 40 mg PO DAILY 10/03/22 10/03/22 History Vitamin D3(Unknown) 1 tab PO DAILY 10/03/22 10/03/22 History Allergies Allergy/AdvReac Type Severity Reaction Status Date / Time cephalexin monohydrate AdvReac Vomiting Verified 10/03/22 10:56 [From Keflex] venlafaxine [From Effexor] AdvReac Rapid Verified 10/03/22 10:56 Heart Rate Physical Exam Vitals: Vital Signs Temp Pulse Pulse Resp BP BP Pulse Ox 10/03/22 07:00 97.5 F L 71 16 108/65 95 10/03/22 02:30 97.6 F 63 18 142/76 98 10/03/22 01:30 65 16 135/70 96 10/03/22 00:30 70 16 133/73 95 10/02/22 23:41 67 16 138/118 98 10/02/22 23:38 98.3 F 78 15 138/76 100 Intake and Output 10/02/22 10/03/22 10/03/22 22:59 06:59 14:59 Output Total 200 Balance -200 Output: Urine 200 Other: Voiding Method Toilet Urinal Weight 99.79 kg PHYSICAL EXAMINATION: GENERAL: The patient is alert and oriented x3, not in any acute distress. Well developed, well nourished. HEENT: Pupils are round and equally reacting to light. EOMI. No scleral icterus. No conjunctival pallor. Normocephalic, atraumatic. No pharyngeal erythema. No thyromegaly. CARDIOVASCULAR: S1 and S2 present. No murmurs, rubs, or gallops. PULMONARY: Chest is clear to auscultation, no wheezing or crackles. ABDOMEN: Soft, nontender, nondistended, normoactive bowel sounds. No palpable organomegaly. MUSCULOSKELETAL: No joint swelling or deformity. EXTREMITIES: No cyanosis, clubbing, or pedal edema. NEUROLOGICAL: Gross neurological examination did not reveal any focal deficits. SKIN: No rashes. Results CBC & Chem 7: 10/03/22 00:58 10/03/22 00:58 Labs: Abnormal Lab Results - Last 24 Hours (Table) 10/03/22 10/03/22 10/03/22 Range/Units 00:58 00:58 06:00 Plt Count 149 L (150-450) k/uL ESR 16 H (0-15) mm/hr BUN 28 H (9-20) mg/dL Glucose 249 H (74-99) mg/dL Hemoglobin A1c 12.0 H (0.0-6.0) % Assessment and Plan Assessment: 1. Intractable left hip/leg pain - He recently had an MRI at our office that was ordered by his primary care doctor, which is unremarkable and dizziness minimal arthritis of the left hip no fracture or any lesions; MRI reveals bilateral hamstring tendinitis. The patient had an appointment scheduled for this Wednesday to review the MRI of his left hip with his primary care doctor, but due to increasing pain in his left buttock he presented to the emergency department. At the time of my evaluation the patient is reporting significant pain in the posterior aspect of his hip. - Patient has been evaluated by orthopedic surgery and no further workup was recommended; conservative treatment for neurogenic etiology is recommended - Plan would be to follow up with spine surgery either outpatient or inpatient if patient is still unable to ambulate 2. Inability to ambulate; PT/OT is consulted 3. Mild renal injury; slowly IV fluid hydration with normal saline; monitor strict ASHLEY's, daily weights, renal function and electrolytes, avoid nephrotoxins 4. Hyperglycemia without acidosis/diabetes mellitus; we will monitor Accu-Cheks every before meals and at bedtime with insulin sliding scale; we will continue with home dose of metformin; patient has been placed on Lantus 10 units subcu daily at bedtime while inpatient 5. Thrombocytopenia; monitor platelet count closely; we'll consult hematology if continues to trend 6. Hypertension; losartan 25 mg daily 7. Hyperlipidemia; Zocor 40 mg daily
[2022-10-03 20:00] LABS: Glucose,Whole Blood 230 mg/dL (70-110)
[2022-10-03] MEDS: TAMSULOSIN 0.4 MG CAP.ER.24H PO SCH (20:07)
[2022-10-03] MEDS: PREGABALIN 100 MG CAP PO SCH (20:07)
[2022-10-03] MEDS: metFORMIN 500 MG TAB PO SCH (20:07)
[2022-10-03] MEDS ORDERED: GABAPENTIN 100 MG CAP PO SCH (21:00)
[2022-10-03] MEDS ORDERED: INSULIN DETEMIR (LEVEMIR) 100 UNIT/ML SYR SQ SCH (21:00)
[2022-10-04] MEDS: HYDROcodone/APAP 10-325MG 1 EACH TAB PO PRN ×4 (00:57→23:05)
[2022-10-04] MEDS: ACETAMINOPHEN TAB 325 MG TAB PO PRN (04:54)
[2022-10-04 06:02] LABS: Glucose,Whole Blood 209 mg/dL (70-110)
[2022-10-04] MEDS: INSULIN ASPART (NovoLOG) 100 UNIT/ML VIAL SQ SCH ×4 (06:20→20:42)
[2022-10-04] MEDS: PREGABALIN 100 MG CAP PO SCH ×2 (07:54→20:42)
[2022-10-04] MEDS: ATORVASTATIN 20 MG TAB PO SCH (07:54)
[2022-10-04] MEDS: ASPIRIN 325 MG TAB PO SCH (07:54)
[2022-10-04] MEDS: metFORMIN 500 MG TAB PO SCH ×2 (07:54→20:42)
[2022-10-04] MEDS: DULoxetine HCL 30 MG CAPSULE.DR PO SCH (07:54)
[2022-10-04] MEDS ORDERED: MELOXICAM 7.5 MG TAB PO SCH (09:00)
[2022-10-04 12:48] LABS: Glucose,Whole Blood 225 mg/dL (70-110)
[2022-10-04 17:35] LABS: Glucose,Whole Blood 310 mg/dL (70-110)
--- NOTE | 2022-10-04 18:59 | P.PN ---
Subjective Progress Note Date: 10/04/22 67-year-old male who presents to the emergency department for left lower extremity pain. States that approximately 3 weeks ago, he was having problems with plantar fasciitis in the bilateral feet. This then caused pain in the bilateral hips, with the left being for more painful than the right. He does have residual left-sided weakness as a result of a CVA many years ago, which he believes is a contributing factor. States that whenever he goes to stand up, the pain shoots from his foot into his left hip. Due to the pain, he feels like his leg is dragging when he tries to walk. 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 He has had steroid injections from podiatry with little to no relief. 2 days ago, he had an MRI of the left hip at [facility]. He has a follow-up appointment on 10/05 to review the results. Overall believes that he is getting worse. He is now scared to go home due to the pain and weakness. He has tried using a walker which is not beneficial. He and his are scared that he will fall due to his mobility issues and are hoping for PT/OT eval and rehab placement. Objective - Vital Signs Vital signs: Vital Signs Temp 98.1 F 10/04/22 07:00 Pulse 70 10/04/22 07:00 Resp 16 10/04/22 07:00 BP 110/68 10/04/22 07:00 Pulse Ox 97 10/04/22 07:00 FiO2 Intake & Output 10/03/22 10/04/22 10/04/22 18:59 06:59 18:59 Intake Total 365 Balance 365 Weight 99.79 kg Intake: Oral 365 Other: Voiding Method Toilet Toilet Urinal Urinal # Voids 3 3 - Exam GENERAL: The patient is alert and oriented x3, not in any acute distress. Well developed, well nourished. HEENT: Pupils are round and equally reacting to light. EOMI. No scleral icterus. No conjunctival pallor. Normocephalic, atraumatic. No pharyngeal erythema. No thyromegaly. CARDIOVASCULAR: S1 and S2 present. No murmurs, rubs, or gallops. PULMONARY: Chest is clear to auscultation, no wheezing or crackles. ABDOMEN: Soft, nontender, nondistended, normoactive bowel sounds. No palpable organomegaly. MUSCULOSKELETAL: No joint swelling or deformity. EXTREMITIES: No cyanosis, clubbing, or pedal edema. NEUROLOGICAL: Gross neurological examination did not reveal any focal deficits. SKIN: No rashes. - Labs CBC & Chem 7: 10/03/22 00:58 10/03/22 00:58 Labs: Abnormal Lab Results - Last 24 Hours (Table) 10/03/22 10/03/22 10/04/22 Range/Units 17:25 19:59 06:01 POC Glucose (mg/dL) 194 H 230 H 209 H (70-110) mg/dL 10/04/22 Range/Units 12:47 POC Glucose (mg/dL) 225 H (70-110) mg/dL Assessment and Plan Assessment: 1. Intractable left hip/leg pain - He recently had an MRI at our office that was ordered by his primary care doctor, which is unremarkable and dizziness minimal arthritis of the left hip no fracture or any lesions; MRI reveals bilateral hamstring tendinitis. The patient had an appointment scheduled for this Wednesday to review the MRI of his left hip with his primary care doctor, but due to increasing pain in his left buttock he presented to the emergency department. At the time of my evaluation the patient is reporting significant pain in the posterior aspect of his hip. - Patient has been evaluated by orthopedic surgery and no further workup was recommended; conservative treatment for neurogenic etiology is recommended - Plan would be to follow up with spine surgery either outpatient or inpatient if patient is still unable to ambulate 2. Inability to ambulate; PT/OT is consulted 3. Mild renal injury; slowly IV fluid hydration with normal saline; monitor strict ASHLEY's, daily weights, renal function and electrolytes, avoid nephrotoxins 4. Hyperglycemia without acidosis/diabetes mellitus; we will monitor Accu-Cheks every before meals and at bedtime with insulin sliding scale; we will continue with home dose of metformin; patient has been placed on Lantus 10 units subcu d aily at bedtime while inpatient 5. Thrombocytopenia; monitor platelet count closely; we'll consult hematology if continues to trend 6. Hypertension; losartan 25 mg daily 7. Hyperlipidemia; Zocor 40 mg daily
[2022-10-04 20:40] LABS: Glucose,Whole Blood 215 mg/dL (70-110)
[2022-10-04] MEDS: TAMSULOSIN 0.4 MG CAP.ER.24H PO SCH (20:42)
[2022-10-04] MEDS: INSULIN DETEMIR (LEVEMIR) 100 UNIT/ML SYR SQ SCH (20:42)
[2022-10-05] MEDS: ACETAMINOPHEN TAB 325 MG TAB PO PRN (03:03)
[2022-10-05] MEDS: HYDROcodone/APAP 10-325MG 1 EACH TAB PO PRN ×3 (05:35→20:11)
[2022-10-05] MEDS: INSULIN ASPART (NovoLOG) 100 UNIT/ML VIAL SQ SCH ×5 (06:44→20:19)
[2022-10-05 06:45] LABS: Glucose,Whole Blood 97 mg/dL (70-110)
[2022-10-05] MEDS: metFORMIN 500 MG TAB PO SCH ×2 (09:11→20:12)
[2022-10-05] MEDS: DULoxetine HCL 30 MG CAPSULE.DR PO SCH (09:11)
[2022-10-05] MEDS: ATORVASTATIN 20 MG TAB PO SCH (09:11)
[2022-10-05] MEDS: ASPIRIN 325 MG TAB PO SCH (09:11)
[2022-10-05] MEDS: PREGABALIN 100 MG CAP PO SCH ×2 (09:12→20:12)
--- NOTE | 2022-10-05 10:47 | P.CNOR ---
History of Present Illness - [facility] Consult date: 10/05/22 Requesting physician: Wilmer E Zeb Consult reason: other (Left lower extremity radiculopathy, difficulty with ambu lation) History of present illness: Patient is a very pleasant 67-year-old male who is seen there the bedside for further evaluation of his left lower extremity radiculopathy. He states over the past month he has had severe pain that radiates into his left buttock, around his hip, and down the entire left lower extremity. He has numbness in his left foot. He states over the past month he has had difficulty ambulating on his left lower extremity and feels his left leg will give out on him. He is currently requiring a walker to aid in ambulation. He denies any specific injury. He denies any right lower extremity weakness or radiculopathy. Patient does have some chronic weakness with his left lower extremity with a history of stroke many years ago. He states his symptoms currently are significantly different than they were following his stroke. He denies any new onset weakness with his left lower extremity. He states before these exacerbation of symptoms, he was able to ambulate independently without the assistance of a walker. He presented to the emergency department on 10/02/2022 for further evaluation due to his significant left leg pain. Prior to this, he is being worked up for further evaluation of his left hip. He was seen and examined by Dr. Arshad in regards to his pain and ruled his hip out is the cause of his pain. Patient has had multiple imaging modalities including x-ray and MRI of his left hip without significant findings. It was felt his symptoms could be stemming from his lumbar spine. Consultation was placed for further evaluation of his lumbar spine. Prior to evaluation the bedside, patient has had x-ray imaging of his lumbar spine but has not had any MRI imaging. He denies having a pacemaker. He has had MRI imaging in the past without difficulty. Patient is being seeing them by medicine for his other medical diagnoses including history of CVA, diabetes mellitus, hyperlipidemia, hypertension, and prostate disorder. Past Medical History Past Medical History: CVA/TIA, Diabetes Mellitus, Hyperlipidemia, Hypertension, Prostate Disorder Additional Past Medical History / Comment(s): bph History of Any Multi-Drug Resistant Organisms: None Reported Past Surgical History: No Surgical Hx Reported Additional Past Surgical History / Comment(s): right endarderectomy Past Anesthesia/Blood Transfusion Reactions: No Reported Reaction Past Psychological History: Anxiety, Depression Smoking Status: Never smoker Past Alcohol Use History: Occasional Past Drug Use History: None Reported - Past Family History Father Family Medical History: Cancer Mother History Unknown: Yes Family Medical History: Congestive Heart Failure (CHF), COPD, Coronary Artery Disease (CAD), Diabetes Mellitus, Myocardial Infarction (MA) Medications and Allergies Home Medications Medication Instructions Recorded Confirmed Type Aspirin 325 mg PO DAILY 08/20/14 10/03/22 History Pregabalin [Lyrica] 400 mg PO DAILY 08/20/14 10/03/22 History Tamsulosin [Flomax] 0.4 mg PO HS 08/20/14 10/03/22 History Pregabalin [Lyrica] 200 mg PO HS 05/01/16 10/03/22 History metFORMIN HCL [Glucophage] 1,000 mg PO BID 07/14/17 10/03/22 History Losartan Potassium [Cozaar] 25 mg PO DAILY 08/07/21 10/03/22 History DULoxetine HCL [Cymbalta] 30 mg PO DAILY 30 Days #90 capsule 08/11/21 10/03/22 Rx Co Q-10(Unknown) 1 tab PO DAILY 10/03/22 10/03/22 History Fish Oil(Unknown) 1 cap PO DAILY 10/03/22 10/03/22 History HYDROcodone/APAP 10-325MG [[place] 1 tab PO Q6H PRN 10/03/22 10/03/22 History 10-325] Insulin Aspart [NovoLOG Flexpen] 10 - 12 units SQ AC-BRKFST 10/03/22 10/03/22 History Insulin Aspart [NovoLOG Flexpen] 20 units SQ 10/03/22 10/03/22 History Insulin Glargine,Hum.rec.anlog 40 units SQ BID 10/03/22 10/03/22 History [[place] Solbruce] Lidocaine 5% Patch [Lidoderm] 1 patch TRANSDERM DAILY PRN 10/03/22 10/03/22 History Meloxicam [Mobic] 15 mg PO DAILY 10/03/22 10/03/22 History Simvastatin [Zocor] 40 mg PO DAILY 10/03/22 10/03/22 History Vitamin D3(Unknown) 1 tab PO DAILY 10/03/22 10/03/22 History Allergies Allergy/AdvReac Type Severity Reaction Status Date / Time cephalexin monohydrate AdvReac Vomiting Verified 10/03/22 10:56 [From Keflex] venlafaxine [From Effexor] AdvReac Rapid Verified 10/03/22 10:56 Heart Rate Physical Examination Osteopathic Statement: *. No significant issues noted on an osteopathic structural exam other than those noted in the History and Physical/Consult. Physical exam: Patient is awake, alert, and oriented 3 Vital signs stable Good chest excursion with deep inspiration and expiration Abdomen soft nontender Examination of lumbar spine reveals skin is intact with no abrasions, lacerations, or bruises; no erythema, purulence or signs of infection Dorsiflexion, plantarflexion, and extensor hallucis longus positive sustained bilaterally Lower extremity strength on the right Chronic of lower extremity weakness with dorsiflexion and extensor hallucis longus at 2/5 Chronic left lower extremity with plantar flexion at 4-/5 Patient is able to perform independent hip flexion and knee flexion without difficulty Left hip flexion with knee in extension exacerbates left buttock pain No lower extremity hyperreflexia bilaterally Straight leg test negative bilateral lower extremities Negative Lasegue's test bilaterally No signs or symptoms of DVT; no calf pain No pain with internal and external rotation of the hips bilaterally Neurovascularly intact Results Pertinent studies: X-rays of the lumbar spine taken on 09/27/2022: T11-L5 significant degenerative disc disease with anterior osteophytic spurring; L5-S1 severe degenerative disc disease with large anterior osteophytic spurring; Degenerative scoliosis; Lumbar lateral osteophytic spurring; Lumbar facet spondylosis; L4-5 asymmetric degenerative disc disease; L2-3 asymmetric degenerative disc disease - Labs Labs: Abnormal Lab Results - Last 24 Hours (Table) 10/04/22 10/04/22 10/04/22 Range/Units 12:47 17:33 20:38 POC Glucose (mg/dL) 225 H 310 H 215 H (70-110) mg/dL H & H 10/03/22 Range/Units 00:58 Hgb 13.1 (13.0-17.5) gm/dL Hct 40.0 (39.0-53.0) % Coagulation 10/03/22 Range/Units 00:58 INR 0.9 (<1.2) Result Diagrams: 10/03/22 00:58 10/03/22 00:58 Assessment and Plan Assessment: Assessment: Acute left lower extremity radiculopathy over the past month Difficulty with ambulation due to left lower extremity leg pain Chronic left lower extremity weakness following a history of stroke T11-L5 significant degenerative disc disease with anterior osteophytic spurring L5-S1 severe degenerative disc disease with large anterior osteophytic spurring Degenerative scoliosis Lumbar lateral osteophytic spurring Lumbar facet spondylosis L4-5 asymmetric degenerative disc disease L2-3 asymmetric degenerative disc disease CVA Diabetes mellitus Hyperlipidemia Hypertension Obesity Prostate disorder (1) Radiculopathy of leg Current Visit: Yes Status: Acute Code(s): M54.10 - RADICULOPATHY, SITE UNSPECIFIED SNOMED Code(s): 07617534 (2) Weakness of left lower extremity Current Visit: Yes Status: Acute Code(s): R29.898 - OTH SYMPTOMS AND SIGNS INVOLVING THE MUSCULOSKELETAL SYSTEM SNOMED Code(s): 399276651 (3) Difficulty in walking Current Visit: Yes Status: Acute Code(s): R26.2 - DIFFICULTY IN WALKING, NOT ELSEWHERE CLASSIFIED SNOMED Code(s): 417726004 (4) Lumbar degenerative disc disease Current Visit: Yes Status: Acute Code(s): M51.36 - OTHER INTERVERTEBRAL DISC DEGENERATION, LUMBAR REGION SNOMED Code(s): 13461252 (5) Lumbar facet arthropathy Current Visit: Yes Status: Acute Code(s): M47.816 - SPONDYLOSIS W/O MYE LOPATHY OR RADICULOPATHY, LUMBAR REGION SNOMED Code(s): 793675132 (6) Degenerative scoliosis Current Visit: Yes Status: Acute Code(s): M41.50 - OTHER SECONDARY SCOLIOSIS, SITE UNSPECIFIED SNOMED Code(s): 298618888 (7) Osteophyte determined by x-ray Current Visit: Yes Status: Acute Code(s): M25.70 - OSTEOPHYTE, UNSPECIFIED JOINT SNOMED Code(s): 892357260054650 (8) History of CVA (cerebrovascular accident) Current Visit: Yes Status: Acute Code(s): Z86.73 - PRSNL HX OF TIA (TIA), AND CEREB INFRC W/O RESID DEFICITS SNOMED Code(s): 108727388 (9) Diabetes mellitus Current Visit: Yes Status: Acute Code(s): E11.9 - TYPE 2 DIABETES MELLITUS WITHOUT COMPLICATIONS SNOMED Code(s): 96280453 (10) Hyperlipidemia Current Visit: Yes Status: Acute Code(s): E78.5 - HYPERLIPIDEMIA, UNSPECI FIED SNOMED Code(s): 41222415 (11) Hypertension Current Visit: Yes Status: Acute Code(s): I10 - ESSENTIAL (PRIMARY) HYPERTENSION SNOMED Code(s): 86823671 (12) Prostate disorder Current Visit: Yes Status: Acute Code(s): N42.9 - DISORDER OF PROSTATE, UNS PECIFIED SNOMED Code(s): 83263854 (13) Obesity Current Visit: Yes Status: Acute Code(s): E66.9 - OBESITY, UNSPECIFIED SNOMED Code(s): 026878720 Plan: Plan: 1. Patient has been experiencing significant left lower extremity radiculopathy and difficulty with ambulation due to his left lower extremity leg pain over the past month without injury. He feels his left leg will give out on him. He is requiring a walker to aid in ambulation. Prior to these exacerbation of symptoms he was able to ambulate independently without significant difficulty. He does have a history of stroke with residual left lower extremity weakness but states the symptoms are significantly different. He's had difficulty controlling his pain. He has significant evaluation in regards to his left hip without any significant findings. It was felt his symptoms correlate more with his lumbar spine. He has had x-ray imaging of his lumbar spine taken on 09/27/2022 which does show significant degenerative change throughout his lumbar spine with facet spondylosis, degenerative disc disease, osteophytic spurring, and degenerative scoliosis. He does not feel his symptoms are well-controlled. He did present to the emergency department for further evaluation due to the significant of his symptoms. Given the lack of his overall improvement, significant symptoms, and significant degenerative change on x-ray imaging, we will plan to obtain MR imaging of the lumbar spine for further evaluation. We did discuss would most likely plan to continue with conservative treatment options. We plan for consultation with pain management. Patient does feel this is a good plan of care. Consultation has been placed with pain management this morning. We did discuss following the completion of his lumbar MRI imaging, we will review this imaging and we'll discuss the imaging results with the patient in detail and we'll discuss a plan of care proceeding forward. 2. Patient will continue to be seen examined by medicine for his multiple other medical diagnoses including history of CVA, diabetes mellitus, hyperlipidemia, hypertension, and prostate disorder. Time with Patient: Greater than 30 (Including obtaining history, physical examination, reviewing of imaging, and dictation.)
[2022-10-05 12:10] LABS: Glucose,Whole Blood 476 mg/dL (70-110)
--- NOTE | 2022-10-05 13:12 | P.PN ---
Subjective 67-year-old male who presents to the emergency department for left lower extremity pain. States that approximately 3 weeks ago, he was having problems with plantar fasciitis in the bilateral feet. This then caused pain in the bilateral hips, with the left being for more painful than the right. He does have residual left-sided weakness as a result of a CVA many years ago, which he believes is a contributing factor. States that whenever he goes to stand up, the pain shoots from his foot into his left hip. Due to the pain, he feels like his leg is dragging when he tries to walk. 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 He has had steroid injections from podiatry with little to no relief. 2 days ago, he had an MRI of the left hip at [facility]. He has a follow-up appointment on 10/05 to review the results. Overall believes that he is getting worse. He is now scared to go home due to the pain and weakness. He has tried using a walker which is not beneficial. He and his are scared that he will fall due to his mobility issues and are hoping for PT/OT eval and rehab placement. I'm resume the care of the patient today 10/05/2022 This is a pleasant 67 years old male who presents with worsening left hip pain, patient says that he has this pain for about one month but is getting worse lately so he decided to come to emergency room. He has difficulty ambulating because of pain but denies any specific weakness or numbness. Also passively there is no restriction of movement of the ankle or left knee. Patient says that his pain mainly in the left hip area but denies back pain, he says however when he stands up his pain starts in his left foot and goes all the way up to the left thigh. However there is no history of trauma, no deformity or limitation of movement on the left ankle and left knee. Orthopedic team evaluated the patient yesterday and recommended no hip pathology and he recommended spine orthopedic consult, discussed the case with spine surgery team today and the plan for MRI of the lower back. Also patient has uncontrolled diabetes, hemoglobin A1c is 12.1, patient informed. Currently is on Levemir 40 units twice a day which established a 10 units daily and added lispro 10 units with meals. Also he is on metformin 1000 mg twice a day which is continued PT/OT is ordered Objective - Vital Signs Vital signs: Vital Signs Temp 97.3 F L 10/05/22 07:00 Pulse 67 10/05/22 07:00 Resp 16 10/05/22 07:00 BP 116/70 10/05/22 07:00 Pulse Ox 97 10/05/22 07:00 FiO2 Intake & Output 10/04/22 10/05/22 10/05/22 18:59 06:59 18:59 Intake Total 118 Balance 118 Intake: Oral 118 Other: Voiding Method Toilet Toilet Urinal # Voids 3 2 - Exam GENERAL: The patient is alert and oriented x3, not in any acute distress. Well developed, well nourished. HEENT: Pupils are round and equally reacting to light. EOMI. No scleral icterus. No conjunctival pallor. Normocephalic, atraumatic. No pharyngeal erythema. No thyromegaly. CARDIOVASCULAR: S1 and S2 present. No murmurs, rubs, or gallops. PULMONARY: Chest is clear to auscultation, no wheezing or crackles. ABDOMEN: Soft, nontender, nondistended, normoactive bowel sounds. No palpable organomegaly. -MUSCULOSKELETAL: No joint swelling or deformity. Lateral hip tenderness EXTREMITIES: No cyanosis, clubbing, or pedal edema. NEUROLOGICAL: Gross neurological examination did not reveal any focal deficits. SKIN: No rashes. no petechiae. - Labs CBC & Chem 7: 10/03/22 00:58 10/03/22 00:58 Labs: Abnormal Lab Results - Last 24 Hours (Table) 10/04/22 10/04/22 10/05/22 Range/Units 17:33 20:38 12:08 POC Glucose (mg/dL) 310 H 215 H 476 H (70-110) mg/dL Assessment and Plan Assessment: 1. Intractable left hip/leg pain - Patient evaluated by orthopedic team and rule out hip pathology and recommended spine surgery consult - spine surgery consult was obtained and MRI of the lumbar spine is pending 2. Inability to ambulate; secondary to above. PT/OT is consulted 3. Diabetes mellitus with hyperglycemia, continue with Levemir 10 units and insulin sliding scale and lispro 10 units with meals. Continue with metformin 1000 twice a day 4. Hypertension; losartan 25 mg daily 5. Hyperlipidemia; Zocor 40 mg daily Labs and medication were reviewed.. Continue same treatment. Continue with symptomatic treatment. Resume home medication. Monitor labs and vitals. DVT and GI prophylaxis. Further recommendations as per clinical course of the patient DVT prophylaxis: Subcutaneous heparin GI Prophylaxis: Pepcid PT/OT: Pending Prognosis is guarded
[2022-10-05] MEDS: INSULIN DETEMIR (LEVEMIR) 100 UNIT/ML SYR SQ SCH ×2 (13:48→20:13)
--- NOTE | 2022-10-05 15:44 | P.PAINPG ---
Objective - Vital Signs Vital signs: Vital Signs Temp 97.3 F L 10/05/22 07:00 Pulse 67 10/05/22 07:00 Resp 16 10/05/22 07:00 BP 116/70 10/05/22 07:00 Pulse Ox 97 10/05/22 07:00 FiO2 Intake & Output 10/04/22 10/05/22 10/05/22 18:59 06:59 18:59 Intake Total 118 Balance 118 Intake: Oral 118 Other: Voiding Method Toilet Toilet Urinal # Voids 3 2 - Labs CBC & Chem 7: 10/03/22 00:58 10/03/22 00:58 Labs: Abnormal Lab Results - Last 24 Hours (Table) 10/04/22 10/04/22 10/04/22 Range/Units 12:47 17:33 20:38 POC Glucose (mg/dL) 225 H 310 H 215 H (70-110) mg/dL PQRS Measure Charge Sheet Comment: HISTORY OF PRESENT ILLNESS: 67 yr old male w at side as a referral from Mites[facility] D[facility] admitted for intractable pain presents today w severe and chronic L LBP secondary to DDD, facet arthropathy without myelopathy for evaluation. Pt states pain level is provoked at 10 /10 in intensity, constant, localized in the L lumbar spine, burning, achy in character w shooting pain towards the L buttocks and LLE. Pain is provoked by weight bearing activity (bending, lifting, standing/ walking). Pain is alleviated by medications, reclining, repositioning and rest. PMH: CVA, DM II, Hyperlipidemia, HTN, BPH, MDD/ Anxiety PSH: R Endarectomy SH: Never smoker, Occasional ETOH use, No illicit drug use FH: Fa- CA. Mo- CHF, COPD, CAD, DM II, NH. All: See list Meds: See list REVIEW OF ORGAN SYSTEMS: CONSTITUTIONAL: No fevers or chills. No recent weight loss. NEUROLOGICAL: + numbness and tingling along the distal extremities. No seizure disorders or headaches. MUSCULOSKELETAL: + pain PSYCHIATRIC: Denies current depression or suicidal thoughts. Physical Examinations : Constitutional : Cooperative , not in acute distress . Neurologic : Cranial nerve II to XII intact. No focal neurological deficits. Psychiatric : alert & oriented x 3. Matching mood & appropriate affect. Judgment & insight intact. Musculoskeletal : Cervical Spine Motor strength in the deltoid and biceps: Normal right side. Normal Left side Motor strength biceps and the wrist extensors: Normal right side . Normal left side Motor strength in the triceps muscle: Normal right side. Normal left side Deep tendon reflexes: Normal at the biceps. Normal at Brachioradialis. Normal at triceps Vertebral body tenderness to deep palpation over Cervical facet loading test: positive bilaterally Spurling test: positive bilaterally Neck distraction test: positive bilater ally Emilie sign: positive bilaterally Lumbar spine Motor strength lower extremities ,thigh and legs 5/5 Right side , 5/5 Left side Deep tendon reflexes : Normal Knee Jerk. Normal Ankle Jerk Vertebral body tenderness over L5 Lumbar facet Loading Test: positive Right / positive Left Range of motion of the lumbar spine Flexion 30 degrees, extension 10 degrees Seated Straight Leg Raise test: Left/ Right positive at <40 degrees Sarah test: positive right / positive left. Severe tenderness over the Sacroiliac joint on the Right / Left sides Gaenslen test: positive bilaterally Seated flexion test: positive bilaterally. Sacral spine : Severe tenderness over the Sacroiliac joint: right side / left side Range of motion: Flexion of the lumbar spine <60 degrees Range of motion: Extension of the lumbar spine <20 degrees Gaenslen's Test positive Baljinder's Test positive Sarah test: positive right side / left side Thigh Thrust Test Sacral Thrust Test Imaging: MRI without contrast of the lumbar spine ordered today 10/05/31. Assessment/ Plan : Lumbar DDD Recommendation of L paramedian L5-S1 #1. May need a series of injections, up to 3 within a 6 mo period, for optimal pain relief. Risks, benefits of procedure discussed and patient verbalized understanding. Admits to aspirin or anti- coagulant use or medical history of diabetes. Protocol for discontinuation/ continuation of medications leigh ann procedure discussed. All questions answered. I have spent greater than 30 minutes on patient care today. Dr Kaur was available by phone for the evaluation of this patient. The time was used to review the medical records including relevant urine studies and Prescription history (MAPs), review of the available imaging, evaluation and examination of the patient, coordination of care with the medical staff and if applicable referring physicians, as well as creation of the medical record - Pain Location Left Non-Pharmacological Interventions: Position/Reposition Pharmacological Interventions: PRN Medication Left Hip Non-Pharmacological Interventions: Darkened Room, Distraction, Elevation Pharmacological Interventions: Discuss Pain Med Options, Medication, PRN Medication Pain Comment: see MAR PQRS Narrative: Smoking Status Never smoker Blood Pressure [Right Arm] 130/77 Blood Pressure [Left Arm] 116/70 Blood Pressure 135/70 Pain Intensity [Left Hip] 10 Pain Intensity [Left] 10 Pain Intensity 3 Pain Scale Used Numeric (1 - 10) Scale Used Numeric (1 - 10) Home Medications: Ambulatory Orders Aspirin 325 mg PO DAILY 08/20/14 Pregabalin [Lyrica] 400 mg PO DAILY 08/20/14 Tamsulosin [Flomax] 0.4 mg PO HS 08/20/14 Pregabalin [Lyrica] 200 mg PO HS 05/01/16 metFORMIN HCL [Glucophage] 1,000 mg PO BID 07/14/17 Losartan Potassium [Cozaar] 25 mg PO DAILY 08/07/21 DULoxetine HCL [Cymbalta] 30 mg PO DAILY 30 Days #90 capsule 08/11/21 Co Q-10(Unknown) 1 tab PO DAILY 10/03/22 Fish Oil(Unknown) 1 cap PO DAILY 10/03/22 HYDROcodone/APAP 10-325MG [[place] 10-325] 1 tab PO Q6H PRN 10/03/22 Insulin Aspart [NovoLOG Flexpen] 10 - 12 units SQ AC-BRKFST 10/03/22 Insulin Aspart [NovoLOG Flexpen] 20 units SQ HS 10/03/22 Insulin Glargine,Hum.rec.anlog [[place] Solostar] 40 units SQ BID 10/03/22 Lidocaine 5% Patch [Lidoderm] 1 patch TRANSDERM DAILY PRN 10/03/22 Meloxicam [Mobic] 15 mg PO DAILY 10/03/22 Simvastatin [Zocor] 40 mg PO DAILY 10/03/22 Vitamin D3(Unknown) 1 tab PO DAILY 10/03/22 Controlled Substance Measures - Controlled Substance Measures Is patient prescribed a controlled substance at discharge?: No
[2022-10-05 17:20] LABS: Glucose,Whole Blood 277 mg/dL (70-110)
[2022-10-05] MEDS: HEPARIN SODIUM,PORCINE/PF 5,000 UNIT/0.5 ML SYRINGE SQ SCH (20:12)
[2022-10-05] MEDS: FAMOTIDINE 20 MG/2 ML VIAL IV SCH (20:12)
[2022-10-05] MEDS: TAMSULOSIN 0.4 MG CAP.ER.24H PO SCH (20:12)
[2022-10-05 20:17] LABS: Glucose,Whole Blood 184 mg/dL (70-110)
--- NOTE | 2022-10-05 21:05 | MR ---
EXAMINATION TYPE: MR lumbar spine wo con DATE OF EXAM: 10/05/2022 8:55 PM COMPARISON: None. CLINICAL INDICATION:Male, 67 years old with history of lower extremity radiculopathy TECHNIQUE: Multi planar, multi sequence imaging was performed utilizing: T1-weighted, T2-weighted, a nd turbo inversion recovery imaging of the lumbar spine. IV Contrast: None. FINDINGS: Alignment: The lumbar vertebral bodies have preserved heights. There is straightening of the alignmen t. Cord: The conus medullaris and the distal spinal cord appear unremarkable with regards to their signa l intensity and morphology. Bones/Discs: Reactive edema of the adjoining endplates scattered throughout the spine felt to be on a degenerative basis. Multilevel disc degeneration changes with disc space narrowing, osteophytes and Schmorl nodes. Scattered Modic endplate changes are also present throughout the spine. Multilevel dis c desiccation is present. Transitional vertebrae with rudimentary disc at S1-S2. T12-L1: No evidence of significant spinal canal stenosis or neural foraminal stenosis. L1-L2: Disc bulge and facet joint arthropathy result in moderate spinal canal and moderate bilateral neural foraminal stenosis. L2-L3: Disc bulge and facet joint arthropathy result in severe spinal canal and moderate bilateral ne ural foraminal stenosis. L3-L4: Disc bulge and facet joint arthropathy result in mild spinal canal and mild bilateral neural f oraminal stenosis. L4-L5: Disc bulge and facet joint arthropathy result in severe spinal canal and moderate bilateral ne ural foraminal stenosis, right greater than left. L5-S1: The disc is rounded posterior morphology without significant spinal canal stenosis. Facet join t arthropathy with moderate bilateral neural foraminal stenosis, right greater than left. Other findings: None. IMPRESSION: 1. L2-L3 and L4-L5 disc bulge with severe spinal canal stenosis, additional moderate spinal canal st enosis at L1-L2 secondary to disc bulge. 2. Multilevel facet joint arthropathy with varying degrees of neural foraminal stenosis worse at L3- L4 and L4-L5 on the right.
[2022-10-06] MEDS: HYDROcodone/APAP 10-325MG 1 EACH TAB PO PRN ×2 (04:03→12:23)
[2022-10-06 06:14] LABS: Glucose,Whole Blood 182 mg/dL (70-110)
[2022-10-06] MEDS: INSULIN ASPART (NovoLOG) 100 UNIT/ML VIAL SQ SCH ×4 (06:24→13:38)
[2022-10-06] MEDS: INSULIN DETEMIR (LEVEMIR) 100 UNIT/ML SYR SQ SCH (06:24)
[2022-10-06 08:37] LABS: Glucose,Whole Blood 155 mg/dL (70-110)
--- NOTE | 2022-10-06 08:53 | P.PN ---
Progress Note - Text Progress Note Date: 10/06/22 Orthopedic spine: History of present illness: Patient is a very pleasant 67-year-old male who is seen there the bedside for follow-up evaluation of his left lower extremity radiculopathy. Since being seen and examined yesterday he has had lumbar MRI imaging performed. He has not had any improvement of his symptoms. He continues to experience severe pain that radiates into his left buttock, around his hip, and down the entire left lower extremity. He has numbness in his left foot. He has severe pain at his left foot this morning as well. He continues to have difficulty ambulating on his left lower extremity and feels his left leg will give out on him. His left lower extremity leg pain is significantly exacerbated when standing on his left lower extremity. He is currently requiring a walker to aid in ambulation. He denies any specific injury. He denies any right lower extremity weakness or radiculopathy. Patient does have some chronic weakness with his left lower extremity with a history of stroke many years ago. He states his symptoms currently are significantly different than they were following his stroke. He denies any new onset weakness with his left lower extremity. He states before these exacerbation of symptoms, he was able to ambulate independently without the assistance of a walker. He presented to the emergency department on 10/02/2022 for further evaluation due to his significant left leg pain. Prior to this, he is being worked up for further evaluation of his left hip. He was seen and examined by Dr. Arshad in regards to his pain and ruled his hip out is the cause of his pain. Patient has had multiple imaging modalities including x-ray and MRI of his left hip without significant findings. It was felt his symptoms could be stemming from his lumbar spine. Consultation was placed for further evaluation of his lumbar spine. Patient is being seeing them by medicine for his other medical diagnoses including history of CVA, diabetes mellitus, hyperlipidemia, hypertension, and prostate disorder. Patient was seen and examined yesterday by pain management who discussed the possibility of an injection. Nursing is planning to contact pain management again this morning for reevaluation of the patient to proceed forward with setting up injections. Physical exam: Patient is awake, alert, and oriented 3 Vital signs stable Good chest excursion with deep inspiration and expiration Abdomen soft nontender Examination of lumbar spine reveals skin is intact with no abrasions, lacerations, or bruises; no erythema, purulence or signs of infection Dorsiflexion, plantarflexion, and extensor hallucis longus positive sustained bilaterally Lower extremity strength on the right Chronic of lower extremity weakness with dorsiflexion and extensor hallucis longus at 2/5 Chronic left lower extremity with plantar flexion at 4-/5 Patient is able to perform independent hip flexion and knee flexion without difficulty Left hip flexion with knee in extension exacerbates left buttock pain No lower extremity hyperreflexia bilaterally Straight leg test negative bilateral lower extremities Negative Lasegue's test bilaterally No signs or symptoms of DVT; no calf pain No pain with internal and external rotation of the hips bilaterally Neurovascularly intact Pertinent studies: MRI of the lumbar spine taken on 10/05/2022: L1-2 degenerative disc disease and disc herniation with [id number] spinal canal stenosis; L2-3 disc herniation and facet arthropathy resulting in moderate to severe spinal canal stenosis; L4-5 disc herniation and facet arthropathy resulting in severe spinal canal stenosis: L5-S1 degenerative disc disease without significant stenosis X-rays of the lumbar spine taken on 09/27/2022: T11-L5 significant degenerative disc disease with anterior osteophytic spurring; L5-S1 severe degenerative disc disease with large anterior osteophytic spurring; Degenerative scoliosis; Lumbar lateral osteophytic spurring; Lumbar facet spondylosis; L4-5 asymmetric degenerative disc disease; L2-3 asymmetric degenerative disc disease Assessment: Acute left lower extremity radiculopathy over the past month Difficulty with ambulation due to left lower extremity leg pain Chronic left lower extremity weakness following a history of stroke L2-3 moderate to severe spinal stenosis L4-5 severe spinal stenosis L1-2 [id number] spinal stenosis T11-L5 significant degenerative disc disease with anterior osteophytic spurring L5-S1 severe degenerative disc disease with large anterior osteophytic spurring Degenerative scoliosis Lumbar lateral osteophytic spurring Lumbar facet spondylosis L4-5 asymmetric degenerative disc disease L2-3 asymmetric degenerative disc disease CVA Diabetes mellitus Hyperlipidemia Hypertension Obesity Prostate disorder Plan: 1. Patient has not had any significant improvement of his symptoms since being seen and examined yesterday. He continues to experience significant left lower extremity radiculopathy and difficulty with ambulation due to his left lower extremity leg pain over the past month without injury. His left lower extremity radiculopathy is significantly exacerbated with standing on his left lower extremity. He feels his left leg will give out on him. He is requiring a walker to aid in ambulation. Prior to these exacerbation of symptoms he was able to ambulate independently without significant difficulty. He does have a history of stroke with residual left lower extremity weakness but states the sym ptoms are significantly different. He's had difficulty controlling his pain. He has significant evaluation in regards to his left hip without any significant findings. It was felt his symptoms correlate more with his lumbar spine. He has had x-ray imaging of his lumbar spine taken on 09/27/2022 which does show significant degenerative change throughout his lumbar spine with facet spondylosis, degenerative disc disease, osteophytic spurring, and degenerative scoliosis. MRI imaging of the lumbar spine performed yesterday shows significant degenerative change throughout his lumbar spine at multiple levels most severe at L2-3 with moderate to severe spinal stenosis and L4-5 severe spinal stenosis. He does not feel his symptoms are well-controlled. He did present to the emergency department for further evaluation due to the significant of his symptoms. Consultation was placed and he was seen and examined by pain management yesterday who did discuss the possibility of an injection. They did discuss an injection at L5-S1. On MRI imaging patient's symptoms seem to correlate more with his severe changes at L2-3 and more specifically L4-5. L4-5 appears to be his most significant level. We did discuss he may benefit from injections. Nursing will contact pain management for further evaluation and to set up proceeding forward with injections. We did discuss pain management should review his recent lumbar MRI imaging prior to injection. Currently, we'll plan to have the patient work through conservative treatment options. We did discuss if he were to fail all conservative treatment options, he could be a candidate for surgical intervention at his lumbar spine. We did discuss his multilevel degenerative change at the surgical intervention would be significant in that he is a candidate for a lumbar fusion. Patient is agreeable to this plan. Currently, patient is clear for discharge from an orthopedic spine standpoint. We will have him follow-up in the outpatient setting and discuss further treatment options at that time.Patient may follow-up with Trenton Deng PA-C or Dr. Marty Reyes at [facility] in 3-4 weeks following discharge. 2. Patient will continue to be seen examined by medicine for his multiple other medical diagnoses including history of CVA, diabetes mellitus, hyperlipidemia, hypertension, and prostate disorder
[2022-10-06] MEDS: FAMOTIDINE 20 MG/2 ML VIAL IV SCH (09:24)
[2022-10-06] MEDS: metFORMIN 500 MG TAB PO SCH (09:25)
[2022-10-06] MEDS: ATORVASTATIN 20 MG TAB PO SCH (09:25)
[2022-10-06] MEDS: DULoxetine HCL 30 MG CAPSULE.DR PO SCH (09:25)
[2022-10-06] MEDS: PREGABALIN 100 MG CAP PO SCH (09:25)
[2022-10-06 10:07] LABS: Glucose,Whole Blood 197 mg/dL (70-110)
[2022-10-06] MEDS ORDERED: methylPREDNISolone ACETATE 40 MG/ML 1 ML VIAL ONE (10:11)
[2022-10-06] MEDS ORDERED: IOPAMIDOL M200 10 ML VIAL ONE (10:11)
--- NOTE | 2022-10-06 10:27 | P.PCN ---
Date of Procedure: 10/06/22 Procedure(s) Performed: PREOPERATIVE DIAGNOSIS: 1- Lumbar Degenerative Disc Diseases 2-Lumbar spondylosis with Facet arthropathy without myelopathy. 3-lumbar spinal stenosis. 4-lumbar radiculopathy. POSTOPERATIVE DIAGNOSIS: Same as preop diagnosis. PROCEDURE 1. Lumbar epidural steroid injection under fluoroscopic guidance at the L4-5 level. (Fluoroscopy imaging was available in radiology department) 2. Lumbar epidurogram. ANESTHESIA: Local anesthesia with lidocaine 1% 3 mL only. EBL: Minimal PROCEDURE INDICATION: The patient with low back pain and radiculitis symptoms unresponsive to conservative treatment. Fluoroscopy was used to optimize visualization of the needle placement and to maximize safety. PROCEDURE DESCRIPTION / TECHNIQUE: The patient was seen and identified in the preoperative area. Risks, benefits, complications including but not limited to infections ,bleeding ,allergic reaction to the medications ,nerve damage and not complete pain releife , and alternatives were discussed with the patient. The patient agreed to proceed with the procedure and signed the consent. IV was started, and vital signs were stable. Patient was taken to the OR and time out was completed. The patient was placed in the prone position on procedure table and a pillow was placed under the abdomen to reduce lumbar lordosis. The lumbosacral area was prepped and draped in the usual sterile fashion.ere closely monitored during the procedure. Vital signs was monitered during the entire procedure. Using anterior-posterior fluoroscopy, the L4-5 interlaminar space was identified and the skin over this site was marked and then infiltrated with 1% lidocaine s ubcutaneously. Subsequently, a 20-gauge Tuohy epidural needle was inserted and advanced toward the epidural space using the ``Loss of resistance technique and guided by AP and lateral fluoroscopy. The correct needle position in the epidural space was verified with the injection of 2 mL of the water soluble contrast dye Isovue 200 contrast and observing an excellent epidurogram with the epidural spread of the dye, after negative aspiration for blood and CSF and in the absence of paresthesias. Again after negative aspiration, a 3 ml mixture containing 40 mg of Depo-medrol ( Preservetive Free ), and 1 ml of preservative free Normal Saline, and 1 ml of preservative free lidocaine 1% solution was injected and a washout of epidurogram was seen. Needle was withdrawn intact, skin was cleansed, and bandages were applied. COMPLICATIONS: None DISPOSITION / PLANS: The patient was placed in a supine position and transferred to the recovery area in a stable condition for observation. There was no evidence of lower extremity motor or sensory deficit after the procedure. Patient was discharged from the recovery room after meeting discharge criteria. Home discharge instructions were given to the patient by the staff. The patient was reexamined prior to discharge. The patient will schedule a follow up in the clinic in 2-4 weeks.
[2022-10-06 10:40] LABS: African American GFR (CKD) 106.4 (60.0-200.0); Anion Gap 8.9 mmol/L (10.00-18.00); BUN/Creat Ratio 23.5 Ratio (12.00-20.00); Blood Urea Nitrogen 18.8 mg/dL (9.0-27.0); Carbon Dioxide 28.1 mmol/L (20.0-27.5); Non-African American GFR(CKD) 91.8 (60.0-200.0); Potassium 4.5 mmol/L (3.5-5.5)
[2022-10-06] MEDS: ASPIRIN 325 MG TAB PO SCH (10:49)
[2022-10-06] MEDS: HEPARIN SODIUM,PORCINE/PF 5,000 UNIT/0.5 ML SYRINGE SQ SCH (10:49)
[2022-10-06 12:02] LABS: Glucose,Whole Blood 186 mg/dL (70-110)
--- NOTE | 2022-10-06 12:57 | FL ---
EXAMINATION TYPE: FL guided pain mgmt statistic DATE OF EXAM: 10/06/2022 CLINICAL HISTORY: Lumbar epidural steroid injection TECHNIQUE: Fluoroscopy. COMPARISON: None. FINDINGS: Fluoroscopic guidance was provided during procedure performed by Dr. Guerra. A total of 3 seconds of fluoroscopic time was utilized during the procedure and 1 spot images was acquired. IMPRESSION: As Above.
[2022-10-06 15:22] VITALS: BP 136/74; PULSE 90; RESP 17; TEMP 98.9
--- NOTE | 2022-10-06 22:34 | P.DS ---
Providers Date of admission: 10/05/22 15:02 Attending physician: Nai Guerra Consults: 10/03/22 00:43 Consult Physician Urgent Consulting Provider: Michael Arshad Consult Reason/Comments: Left hip pain Do you want consulting provider notified?: Yes 10/05/22 07:01 Consult Physician Urgent Consulting Provider: Jennifer Diaz Consult Reason/Comments: left hip pain Do you want consulting provider notified?: Yes Primary care physician: Lenka Horn [facility] Course: Diagnoses: 1. Intractable left hip/leg pain, secondary to L2-L3 and L4-L5 disc bulge with severe spinal canal stenosis. Status post Lumbar epidural steroid injection today 10/06 2. Inability to ambulate; secondary to above. Improved, patient declined subacute rehab and agrees to home with home health care 3. Diabetes mellitus with hyperglycemia, continue with Levemir 10 units and insulin sliding scale and lispro 10 units with meals. Continue with metformin 1000 twice a day 4. Hypertension; losartan 25 mg daily 5. Hyperlipidemia; Zocor 40 mg daily Hospital course: This is a pleasant 67 years old male who presents with worsening left hip pain, patient says that he has this pain for about one month but is getting worse lately so he decided to come to emergency room. He has difficulty ambulating because of pain but denies any specific weakness or numbness. Also passively there is no restriction of movement of the ankle or left knee. Patient says that his pain mainly in the left hip area but denies back pain, he says however when he stands up his pain starts in his left foot and goes all the way up to the left thigh. However there is no history of trauma, no deformity or limitation of movement on the left ankle and left knee. Orthopedic team evaluated the patient and recommended no hip pathology and he recommended spine orthopedic consult, discussed the case with spine surgery team evaluated the patient and recommended MRI of the lumbar spine:Showing L2-L3 and L4-L5 disc bulge with severe spinal canal stenosis. Also moderate spinal canal stenosis at L1-L2 secondary to disc bulge Orthopedic team recommended conservative management with Lumbar epidural steroid injection done today and patient tolerated the procedure well, after the procedure he has some improvement in his pain but not completely resolved however patient is willing and eager to go home today. Patient was cleared for discharge by all orthopedic teams. Patient denies any other symptoms. No chest pain or GI or urinary symptoms. Subacute rehab is recommended for the patient but he declined, risks and benefits are explained Patient denies any other new symptoms. Problems and management plan were discussed with the patient and he verbalized understanding and acceptance Patient was found stable and can be discharged home in guarded prognosis however he needs follow-up as an outpatient. Patient was instructed to follow up with PCP Dr. Horn within one week and patient agrees Patient was instructed to follow up with RONALD Chowdhury or Dr. diaz the spine surgeon in three to four weeks and he agrees to call and make his own appointments Physical exam Gen: patient is a AAOx3, no distress CVS: S1-S2, RRR, no murmur Lungs: B/L CTA, no wheezing Abdomen: soft, no distention, no tenderness, positive bowel sounds Extremity: no leg edema or induration Time spent more than 35 minutes Plan - Discharge Summary New Discharge Prescriptions: New INSULIN ASPART (NovoLOG) [NovoLOG (formulary)] 10 unit SQ AC-TID #10 ml Continue Aspirin 325 mg PO DAILY Pregabalin [Lyrica] 400 mg PO DAILY Tamsulosin [Flomax] 0.4 mg PO HS Pregabalin [Lyrica] 200 mg PO HS metFORMIN HCL [Glucophage] 1,000 mg PO BID Losartan Potassium [Cozaar] 25 mg PO DAILY Co Q-10(Unknown) 1 tab PO DAILY Fish Oil(Unknown) 1 cap PO DAILY Insulin Aspart [NovoLOG Flexpen] 10 - 12 units SQ AC-BRKFST Insulin Aspart [NovoLOG Flexpen] 20 units SQ HS Lidocaine 5% Patch [Lidoderm 5% Patch] 1 patch TRANSDERM DAILY PRN PRN Reason: Pain DULoxetine HCL [Cymbalta] 30 mg PO DAILY 30 Days #90 capsule Vitamin D3(Unknown) 1 tab PO DAILY HYDROcodone/APAP 10-325MG [Irvine 10-325] 1 tab PO Q6H PRN PRN Reason: Pain Simvastatin [Zocor] 40 mg PO DAILY Changed Insulin Glargine,Hum.rec.anlog [Toujeo Solostar] 25 units SQ BID #0 Discontinued Meloxicam [Mobic] 15 mg PO DAILY Discharge Medication List Aspirin 325 mg PO DAILY 08/20/14 [History] Pregabalin [Lyrica] 400 mg PO DAILY 08/20/14 [History] Tamsulosin [Flomax] 0.4 mg PO HS 08/20/14 [History] Pregabalin [Lyrica] 200 mg PO HS 05/01/16 [History] metFORMIN HCL [Glucophage] 1,000 mg PO BID 07/14/17 [History] Losartan Potassium [Cozaar] 25 mg PO DAILY 08/07/21 [History] DULoxetine HCL [Cymbalta] 30 mg PO DAILY 30 Days #90 capsule 08/11/21 [Rx] Co Q-10(Unknown) 1 tab PO DAILY 10/03/22 [History] Fish Oil(Unknown) 1 cap PO DAILY 10/03/22 [History] HYDROcodone/APAP 10-325MG [[place]vine 10-325] 1 tab PO Q6H PRN 10/03/22 [History] Insulin Aspart [NovoLOG Flexpen] 10 - 12 units SQ AC-BRKFST 10/03/22 [History] Insulin Aspart [NovoLOG Flexpen] 20 units SQ HS 10/03/22 [History] Lidocaine 5% Patch [Lidoderm 5% Patch] 1 patch TRANSDERM DAILY PRN 10/03/22 [History] Simvastatin [Zocor] 40 mg PO DAILY 10/03/22 [History] Vitamin D3(Unknown) 1 tab PO DAILY 10/03/22 [History] INSULIN ASPART (NovoLOG) [NovoLOG (formulary)] 10 unit SQ AC-TID #10 ml 10/06/22 [Rx] Insulin Glargine,Hum.rec.anlog [Toujeo Solostar] 25 units SQ BID #0 10/06/22 [Rx] Follow up Appointment(s)/Referral(s): Trenton Deng PAC [PHYSICIAN WANT AD SUPERVISOR] - 3 Weeks (Patient may follow-up with Trenton Deng PA-C or Dr. Marty Diaz at [facility] in 3-4 weeks following discharge. ) Lenka Horn DO [Primary Care Provider] - 1-2 days [facility] [NON-STAFF] - 1 Week Activity/Diet/Wound Care/Special Instructions: pain injection 10/06/2022 Heart healthy diet, low carbohydrate diet 1600 kcal per day activity is restricted until you see your doctor We recommend to check your glucose 4 times a day, before each meal and at bedtime, keep the results in a log book and bring it to your doctor on your appointment date; if he GLUCOSE less than 70 or more than 400 then call 911 and come to emergency room Discharge/Stand Alone Forms: [facility] Instructions Discharge Disposition: HOME WITH HOME HEALTH SERVICES
== END 2022-10-06 15:25 | disposition home health service (06) | DRG 552 ==
LOC: EC 23:27 → 6NMEDSUR 10-03 00:46 → OBSVTOIN 10-05 15:02
PROVIDERS: ADMIT Hospitalist; ATTEND Hospitalist
PROC: 3E0S3BZ Introduction of Anesthetic Agent into Epidural Space, Percutaneous Approach (ICD-10-PCS; 2022-10-06)
PROC: 3E0S33Z Introduction of Anti-inflammatory into Epidural Space, Percutaneous Approach (ICD-10-PCS; principal; 2022-10-06 11:45)
DX: M51.16 Intervertebral disc disorders with radiculopathy, lumbar region (principal); I69.354 Hemiplegia and hemiparesis following cerebral infarction affecting left non-dominant side; M48.061 Spinal stenosis, lumbar region without neurogenic claudication; E11.65 Type 2 diabetes mellitus with hyperglycemia; E66.9 Obesity, unspecified; Z68.29 Body mass index [BMI] 29.0-29.9, adult; D69.6 Thrombocytopenia, unspecified; E78.5 Hyperlipidemia, unspecified; F32.A Depression, unspecified; F41.9 Anxiety disorder, unspecified; Z82.49 Family history of ischemic heart disease and other diseases of the circulatory system; I10 Essential (primary) hypertension; M41.50 Other secondary scoliosis, site unspecified; M47.26 Other spondylosis with radiculopathy, lumbar region; R26.2 Difficulty in walking, not elsewhere classified; M51.17 Intervertebral disc disorders with radiculopathy, lumbosacral region; M51.34 Other intervertebral disc degeneration, thoracic region; N40.0 Benign prostatic hyperplasia without lower urinary tract symptoms; Z28.311 Partially vaccinated for COVID-19; Z79.1 Long term (current) use of non-steroidal anti-inflammatories (NSAID); Z79.4 Long term (current) use of insulin; Z79.82 Long term (current) use of aspirin; Z79.84 Long term (current) use of oral hypoglycemic drugs; Z79.899 Other long term (current) drug therapy; Z88.1 Allergy status to other antibiotic agents; Z20.822 Contact with and (suspected) exposure to COVID-19; Z71.3 Dietary counseling and surveillance
CPT/HCPCS: 62323; 72148; 80048; 80053; 83036; 85025; 85610; 85652; 85730; 86140; 87635; 99285

== ENCOUNTER → 2023-07-20 | Outpatient (CLI) | payer MEDICARE, OTHER ==
[2023-07-20 16:12] LABS: Chol/HDL Ratio 3.44 Ratio
[2023-07-20 18:34] LABS: Microalbumin Creatinine Ratio <24 mg/g Cr (0-30); Urine Creatinine 50.4 mg/dL (39.0-259.0)
[2023-07-20 19:13] LABS: C-Peptide 1.74 ng/mL (0.81-3.85)
== END | disposition home or self-care (01) ==
LOC: LABWHC1 10:10
PROVIDERS: ATTEND Internal Medicine Endocrinology, Diabetes & Metabolism
DX: E11.65 Type 2 diabetes mellitus with hyperglycemia (principal)
CPT/HCPCS: 36415; 80061; 82043; 82570; 83036; 84443; 84681

== ENCOUNTER → 2023-08-12 | Outpatient (CLI) | payer MEDICARE, OTHER ==
--- NOTE | 2023-08-12 12:06 | MR ---
EXAMINATION TYPE: MR brain wo con DATE OF EXAM: 08/12/2023 11:52 AM COMPARISON: 08/08/2021 HISTORY: Unsteadiness, syncope and collapse. FINDINGS: The ventricles, basal cisterns and sulci overlying the cerebral convexities are mildly enlarged. Remote insult right middle cerebral artery territory. There is evidence of mild periventricular white matter ischemic demyelination. Remote deep white matter insults are also noted. No acute edema is seen on diffusion weighted imaging. There is no evidence for midline shift or mass effect. Acute intracranial hemorrhage or extra-axial collection is not evident. The paranasal sinuses and mastoid air cells are well-aerated. IMPRESSION: Age-related atrophic and chronic small vessel ischemic change. No acute intracranial process at this time.
--- NOTE | 2023-08-13 09:18 | CA ---
Transthoracic Echo Report Name: Alden Emery Age: 68 Gender: M : 1955 Exam Date: 08/12/2023 11:44 Exam Location: [place] [facility] Ht (in): 71 Wt (lb): 220 Ordering Physician: Lenka Perera DO Attending/Referring Phys: Lyly Barbosa [facility] Forensic Scientist Yue Dugan [facility] Procedure CPT: Indications: R60.0 AND R55 Cardiac Hx: Technical Quality: Fair Contrast 1: Total Dose (mL): Contrast 2: Total Dose (mL): MEASUREMENTS (Male / Female) Normal Values 2D ECHO LV Diastolic Diameter PLAX 4.5 cm 4.2 - 5.9 / 3.9 - 5.3 cm LV Systolic Diameter PLAX 2.9 cm IVS Diastolic Thickness 1.1 cm 0.6 - 1.0 / 0.6 - 0.9 cm LVPW Diastolic Thickness 1.1 cm 0.6 - 1.0 / 0.6 - 0.9 cm LV Relative Wall Thickness 0.5 LVOT Diameter 2.0 cm LA Volume 47.8 cm??? 18 - 58 / 22 - 52 cm??? LA Volume Index 21.2 cm???/m??? 16 - 28 cm???/m??? Ascending Aorta Diameter 3.8 cm M-MODE Aortic Root Diameter MM 2.9 cm LA Systolic Diameter MM 4.0 cm LA Ao Ratio MM 1.4 AV Cusp Separation MM 2.1 cm DOPPLER AV Peak Velocity 119.2 cm/s AV Peak Gradient 5.7 mmHg AV Mean Velocity 90.5 cm/s AV Mean Gradient 3.6 mmHg AV Velocity Time Integral 20.9 cm LVOT Peak Velocity 112.8 cm/s LVOT Peak Gradient 5.1 mmHg LVOT Velocity Time Integral 19.6 cm LVOT Stroke Volume 61.9 cm??? LVOT Stroke Volume Index 28.2 ml/m??? LVOT Cardiac Index 2545.6 cm???/min???m??? AV Area Cont Eq vti 3.0 cm??? AV Area Cont Eq pk 3.0 cm??? MV Area PHT 3.1 cm??? Mitral E Point Velocity 52.4 cm/s Mitral A Point Velocity 98.7 cm/s Mitral E to A Ratio 0.5 MV Deceleration Time 247.4 ms LV E' Lateral Velocity 8.2 cm/s Mitral E to LV E' Lateral Ratio 6.4 LV E' Septal Velocity 7.4 cm/s Mitral E to LV E' Septal Ratio 7.1 Right Atrial Pressure 3.0 mmHg FINDINGS Left Ventricle Mildly increased left ventricular wall thickness. Left ventricular cavity size normal. Normal left ventricular systolic function with no obvious regional wall motion abnormalities. Left ventricular ejection fraction is estimated at 55- 60%. Right Ventricle Mild right ventricular dilatation. Right Atrium Mild right atrial dilatation. Left Atrium Normal left atrial size. Mitral Valve No mitral regurgitation. Mild thickening/calcification of the posterior mitral valve leaflet. Aortic Valve Trileaflet aortic valve. Thickening of the aortic valve cusps. No aortic regurgitation. Tricuspid Valve Structurally normal tricuspid valve. No tricuspid regurgitation. Pulmonic Valve Pulmonic valve not well visualized. Pericardium No pericardial effusion. Aorta Normal size aortic root and upper normal proximal ascending aorta. CONCLUSIONS Normal LV function Previewed by: Dr. Demarcus Arana MD (Electronically Signed) Final Date: 13 August 2023 09:18
== END | disposition home or self-care (01) ==
LOC: RADMRIMAIN 10:35
PROVIDERS: ATTEND Family Medicine
DX: I67.82 Cerebral ischemia (principal); G31.1 Senile degeneration of brain, not elsewhere classified; R60.0 Localized edema
CPT/HCPCS: 70551; 93306